=== PATIENT | female | born 1970 | race Caucasian/White ===

== ENCOUNTER → 2019-12-06 13:46 | Outpatient (BNVA) | payer OTHER, SELFPAY | PROVIDERS: PCP Internal Medicine; Visit Provider Physician Assistant | DX: M17.0 Bilateral primary osteoarthritis of knee (principal) | CPT/HCPCS: 20600; 20610; 99213 ==

== ENCOUNTER → 2020-01-09 10:29 | Outpatient (BNVA) | payer OTHER, SELFPAY | PROVIDERS: PCP Internal Medicine; Referring Provider Internal Medicine; Visit Provider Internal Medicine Endocrinology, Diabetes & Metabolism | DX: E89.0 Postprocedural hypothyroidism (principal); Z79.899 Other long term (current) drug therapy | CPT/HCPCS: 99212 ==

== ENCOUNTER 2020-01-17 08:24 | Outpatient (REF) | payer OTHER, SELFPAY ==
[2020-01-17 12:06] LABS: Free T4 (Free Thyroxine) 0.96 ng/dL (0.71-1.85)
== END 2020-01-17 08:25 | disposition home or self-care (01) ==
LOC: HO.HMGCLDS 08:24
PROVIDERS: PCP Internal Medicine; Visit Provider Internal Medicine Endocrinology, Diabetes & Metabolism
DX: E89.0 Postprocedural hypothyroidism (principal)
CPT/HCPCS: 84439; 84443

== ENCOUNTER 2020-03-16 09:48 | Outpatient (REF) | payer OTHER, SELFPAY ==
[2020-03-16 12:27] LABS: Free T4 (Free Thyroxine) 1.15 ng/dL (0.71-1.85); Thyroid Stimulating Hormone 3.08 uIU/mL (0.32-4.0)
== END 2020-03-16 09:49 | disposition home or self-care (01) ==
LOC: HO.HMGCLDS 09:48
PROVIDERS: PCP Internal Medicine; Visit Provider Internal Medicine Endocrinology, Diabetes & Metabolism
DX: E89.0 Postprocedural hypothyroidism (principal)
CPT/HCPCS: 36415; 84439; 84443

== ENCOUNTER 2020-04-13 09:28 | Outpatient (REF) | payer OTHER, SELFPAY ==
[2020-04-13 12:22] LABS: Alanine Aminotransferase 14 U/L (0-31); Albumin Level 4.1 g/dL (3.5-5.0); Alkaline Phosphatase 68 U/L (39-117); Anion Gap 12 (12-20); Aspartate Amino Transferase 17 U/L (5-31); Bilirubin Total 0.4 mg/dL (0.0-1.0); Blood Urea Nitrogen 18 mg/dL (9-16); Calcium 8.9 mg/dL (8.4-10.2); Carbon Dioxide 30 mmol/L (22-29); Chloride 103 mmol/L (96-108); Cholesterol 171 mg/dL; Estimated Glomerular Filt Rate > 60; Glucose Fasting 95 mg/dL (60-99); HDL Cholesterol 38 mg/dL; LDL Cholesterol Calculated 114 mg/dl; Potassium 4.7 mmol/L (3.3-5.1); Sodium 140 mmol/L (135-145); Total Protein 6.6 g/dL (6.5-8.0); Triglycerides 98 mg/dL
[2020-04-13 12:32] LABS: Free T4 (Free Thyroxine) 1.28 ng/dL (0.71-1.85); Thyroid Stimulating Hormone 5.21 uIU/mL (0.32-4.0)
== END 2020-04-13 09:29 | disposition home or self-care (01) ==
LOC: HO.HMGCLDS 09:28
PROVIDERS: Absent Provider Internal Medicine Endocrinology, Diabetes & Metabolism; PCP Internal Medicine; Visit Provider Internal Medicine
DX: E89.0 Postprocedural hypothyroidism (principal); I10 Essential (primary) hypertension; E66.01 Morbid (severe) obesity due to excess calories; Z68.43 Body mass index [BMI] 50.0-59.9, adult
CPT/HCPCS: 36415; 80053; 80061; 84439; 84443

== ENCOUNTER 2020-07-10 10:56 | Outpatient (REF) | payer OTHER, SELFPAY ==
[2020-07-10 17:51] LABS: Thyroid Stimulating Hormone 0.48 uIU/mL (0.32-4.0)
== END 2020-07-10 10:57 | disposition home or self-care (01) ==
LOC: HO.HMGCLDS 10:56
PROVIDERS: PCP Internal Medicine; Visit Provider Internal Medicine Endocrinology, Diabetes & Metabolism
DX: E89.0 Postprocedural hypothyroidism (principal); I10 Essential (primary) hypertension; F41.9 Anxiety disorder, unspecified; Z79.899 Other long term (current) drug therapy
CPT/HCPCS: 36415; 84439; 84443

== ENCOUNTER 2020-09-10 11:59 | Outpatient (REF) | payer OTHER, SELFPAY ==
[2020-09-10 13:54] LABS: MANUAL DIFF FLAG NO
[2020-09-10 14:00] LABS: Basophils Percent Auto 0.6 % (0-2); Eosinophils Absolute Auto 0.1 X10*3/uL (0.0-0.4); Eosinophils Percent Auto 1.9 % (0-4); Hematocrit 48.3 % (37-47); Hemoglobin 15.8 g/dl (12.0-16.0); Imm Gran Abs Auto 0.04 X10*3/uL (0.00-0.03); Imm Gran Pct Auto 0.6 % (0.0-0.4); Lymphocytes Percent Auto 30.9 % (20-40); Mean Corpuscular HGB Conc 32.7 g/dl (31.0-35.0); Mean Corpuscular Volume 88.8 fL (80-98); Monocytes Absolute Auto 0.6 X10*3/uL (0.1-1.2); Monocytes Percent Auto 8.7 % (2-11); Neutrophils Absolute Auto 3.7 X10*3/uL (2.0-8.3); Neutrophils Percent Auto 57.3 % (45-73); Platelet Count 299 X10*3/uL (160-400); Red Blood Count 5.44 X10*6/uL (4.20-5.50); Red Cell Distribution Width 13.5 % (11.0-16.0); White Blood Count 6.4 X10*3/uL (4.8-10.8)
[2020-09-10 14:14] LABS: INTERNATIONAL NORM RATIO 1.1 (0.9-1.1); Prothrombin Time 12.2 SEC (9.9-13.0)
[2020-09-10 14:19] LABS: Alanine Aminotransferase 22 U/L (0-31); Albumin Level 4.2 g/dL (3.5-5.0); Alkaline Phosphatase 67 U/L (39-117); Anion Gap 16 (12-20); Aspartate Amino Transferase 24 U/L (5-31); Bilirubin Total 0.7 mg/dL (0.0-1.0); Blood Urea Nitrogen 13 mg/dL (9-16); Calcium 9.6 mg/dL (8.4-10.2); Carbon Dioxide 29 mmol/L (22-29); Chloride 101 mmol/L (96-108); Estimated Glomerular Filt Rate > 60; Glucose Random 85 mg/dL (60-115); Potassium 4.6 mmol/L (3.3-5.1); Sodium 141 mmol/L (135-145); Total Protein 7.1 g/dL (6.5-8.0)
[2020-09-10 14:38] LABS: Erythrocyte Sedimentation Rate 3 MM/HR (0-20)
[2020-09-10 14:41] LABS: Free T4 (Free Thyroxine) 1.41 ng/dL (0.71-1.85); Thyroid Stimulating Hormone 1.48 uIU/mL (0.32-4.0)
== END 2020-09-10 12:00 | disposition home or self-care (01) ==
LOC: HO.HMGCLDS 11:59
PROVIDERS: Absent Provider Nurse Practitioner Family; PCP Internal Medicine; Visit Provider Internal Medicine Endocrinology, Diabetes & Metabolism
DX: S80.10XA Contusion of unspecified lower leg, initial encounter (principal); E89.0 Postprocedural hypothyroidism
CPT/HCPCS: 36415; 80053; 84439; 84443; 85025; 85610; 85652

== ENCOUNTER → 2020-09-11 09:08 | Outpatient (BNVA) | payer OTHER, SELFPAY | PROVIDERS: Visit Provider Obstetrics & Gynecology ==

== ENCOUNTER 2020-09-17 10:06 | Outpatient (REF) | payer OTHER, SELFPAY ==
--- NOTE | ~2020-09-17 | MM_ITS ---
EXAMINATION: MM SCREENING DIGITAL BREAST TOMOSYNTHESIS, BILATERAL CLINICAL INFORMATION: Screening. Asymptomatic. The lifetime risk of breast cancer based on the Tyrer-Cuzick Model is 8%. COMPARISON: Mammography: 09/12/2019, 06/15/2018, 04/26/2017 TECHNIQUE: Digital breast tomosynthesis is performed in both the craniocaudal and mediolateral oblique views along with computer-aided detection (CAD). Synthesized 2D images are generated from the tomosynthesis. Additional bilateral CC and bilateral MLO views are provided. FINDINGS: There are scattered areas of fibroglandular density (ACR BI-RADS breast composition Category b). There are no significant masses, abnormal calcifications, or other abnormalities. Parenchymal pattern is similar to prior studies. No developing density. The skin contours are smooth. MM/MM tomosynthesis screening BI IMPRESSION: No mammographic evidence of malignancy. ASSESSMENT: BI-RADS 1: Negative RECOMMENDATION: Routine annual mammography screening. This patient's information was entered into a reminder system with a target due date for their next mammogram.
== END 2020-09-17 10:07 | disposition home or self-care (01) ==
LOC: HO.MAMMO 10:06
PROVIDERS: PCP Internal Medicine; Visit Provider Internal Medicine
DX: Z12.31 Encounter for screening mammogram for malignant neoplasm of breast (principal)
CPT/HCPCS: 77063; 77067

== ENCOUNTER → 2020-09-25 10:53 | Outpatient (BNVA) | payer OTHER, SELFPAY | PROVIDERS: PCP Internal Medicine; Referring Provider Internal Medicine; Visit Provider Nurse Practitioner ==

== ENCOUNTER 2020-09-29 14:14 | Outpatient (REF) | payer OTHER, SELFPAY ==
--- NOTE | ~2020-09-29 | US_ITS ---
EXAMINATION: US PELVIS TRANSVAGINAL CLINICAL INFORMATION: Postmenopausal bleeding COMPARISON: None. TECHNIQUE: Transcutaneous and transvaginal pelvic ultrasound. Transvaginal scanning was performed after voiding to better evaluate the endometrium and adnexa. FINDINGS: The uterus measures 11.7 x 7.2 x 7.9 cm. The uterus is anteverted. No suspicious abnormalities region of the cervix. Nabothian cysts are present. The uterine contour is smooth. The endometrium measures 0.7 cm. No focal abnormalities within the myometrium. Right and left ovaries are not identified. No abnormal pelvic masses seen. No significant free pelvic fluid. US/US pelvic and transvaginal IMPRESSION: No suspicious uterine abnormality appreciated. The ovaries were not identified with limitations from body habitus. No suspicious pelvic mass.
== END 2020-09-29 14:15 | disposition home or self-care (01) ==
LOC: HO.US 14:14
PROVIDERS: Visit Provider Obstetrics & Gynecology
DX: N95.0 Postmenopausal bleeding (principal)
CPT/HCPCS: 76830; 76856

== ENCOUNTER → 2020-10-06 11:21 | Outpatient (BNVA) | payer OTHER, SELFPAY | PROVIDERS: PCP Internal Medicine; Visit Provider Obstetrics & Gynecology ==

== ENCOUNTER 2020-10-22 08:34 | Outpatient (REF) | payer OTHER, SELFPAY | END 2020-10-22 08:35 | disposition home or self-care (01) | LOC: HO.LAB 08:34 | PROVIDERS: PCP Internal Medicine; Visit Provider Obstetrics & Gynecology | DX: N95.0 Postmenopausal bleeding (principal) | CPT/HCPCS: 58100; 88305 ==

== ENCOUNTER → 2020-11-05 11:34 | Outpatient (BNVA) | payer OTHER, SELFPAY | PROVIDERS: PCP Internal Medicine; Visit Provider Obstetrics & Gynecology ==

== ENCOUNTER 2020-11-19 11:43 | Day surgery (SDC) | payer OTHER, SELFPAY ==
--- NOTE | 2020-11-18 13:55 | HO.ANESPROP2 ---
Documented by User: Britany Stewart NP 11/18/20 13:57 HPI - Anesthesia Eval Consult details Narrative: 50yo F for Colonoscopy PMFSH Active Problems Active Problems: All Active Problems (Updated 09/11/20 @ 10:25 by Edgar Encarnacion MD) Postmenopausal bleeding (Acute) Well woman exam (Acute) Superficial bruising of lower leg (Acute) Cellulitis (Acute) Allergic rhinitis (Acute) Lumbar degenerative disc disease (Acute) Vitamin D deficiency (Acute) GERD without esophagitis (Acute) Cervical cancer screening (Acute) Colon cancer screening (Acute) Annual physical exam (Acute) Morbid obesity with BMI of 50.0-59.9, adult (Acute) Benign essential hypertension (Acute) Post-surgical hypothyroidism (Acute) Bilateral primary osteoarthritis of knee (Acute) Past Medical History Medical History Allergic rhinitis Benign essential hypertension Cervical cancer screening Colon cancer screening GERD without esophagitis Lumbar degenerative disc disease Morbid obesity with BMI of 50.0-59.9, adult Post-surgical hypothyroidism Superficial bruising of lower leg Vitamin D deficiency Family History Family History Father No problems noted. Mother DMII (diabetes mellitus, type 2) Brother No problems noted. Sister No problems noted. Son No problems noted. Son No problems noted. Daughter No problems noted. Daughter No problems noted. Surgical History Surgical History History of lobectomy of thyroid Social History Social History Housing: Apartment Alcohol intake: current Alcohol intake frequency: a few times a week Alcohol type: wine Patient Tobacco Use Status: Never used Tobacco Use of substances other than those prescribed or required for medical reasons: No Have you been hit, kicked, punched, or otherwise hurt by someone within the past year? If so, by whom?: No Advance Directives: No Advance Directives Information Provided: Yes Recently lost weight without trying: No Patient : No service: No Current occupational status: employed Meds Allergies Allergy/AdvReac Type Severity Reaction Status Date / Time No Known Allergies Allergy Verified 09/25/20 11:05 Home Medications Medication Instructions Recorded Confirmed Last Taken Type cholecalciferol (vitamin D3) 25 25 mcg PO DAILY 12/02/19 09/09/20 11/19/20 History mcg (1,000 unit) chewable tablet (Kids First Vitamin D3) cranberry fruit concentrate 250 mg 250 mg PO TID 12/02/19 09/09/20 Unknown History chewable tablet (Azo Cranberry) ibuprofen 600 mg tablet 600 mg PO Q8H PRN 12/02/19 09/09/20 11/05/20 History magnesium 200 mg tablet 200 mg PO DAILY 12/02/19 09/09/20 Unknown History multivitamin,my-llyc-hfnvexuv 1 tab PO DAILY 12/02/19 09/09/20 Unknown History (Complete Multivitamin) ferrous sulfate 325 mg (65 mg 325 mg PO DAILY 01/09/20 09/09/20 11/05/20 History iron) tablet Exam Exam Date and Time: November 18, 2020 1355 Pertinent Lab Results Pertinent Lab Results: Laboratory Tests 09/10/20 09/10/20 12:09 12:09 WBC 6.4 Hgb 15.8 Hct 48.3 H Plt Count 299 Sodium 141 Potassium 4.6 Chloride 101 Carbon Dioxide 29 BUN 13 Creatinine 0.77 Laboratory Tests 09/10/20 12:09 TSH 1.48 Free T4 1.41 Assessment and Plan Assessment Anesthesia Assessment: Chart Reviewed Documented by User: Roxy Gabriel MD 11/19/20 12:15 [facility] Past Medical History Medical History Allergic rhinitis Benign essential hypertension Cervical cancer screening Colon cancer screening GERD without esophagitis Lumbar degenerative disc disease Morbid obesity with BMI of 50.0-59.9, adult Post-surgical hypothyroidism Superficial bruising of lower leg Vitamin D deficiency Functional capacity: independent ambulation Patient : No Family History Family History Father No problems noted. Mother DMII (diabetes mellitus, type 2) Brother No problems noted. Sister No problems noted. Son No problems noted. Son No problems noted. Daughter No problems noted. Daughter No problems noted. Family history of problems with anesthesia: No Surgical History Surgical History History of lobectomy of thyroid History of Problems with Anesthesia: No Social History Social History Housing: Apartment Alcohol intake: current Alcohol intake frequency: a few times a week Alcohol type: wine Patient Tobacco Use Status: Never used Tobacco Use of substances other than those prescribed or required for medical reasons: No Have you been hit, kicked, punched, or otherwise hurt by someone within the past year? If so, by whom?: No Advance Directives: No Advance Directives Information Provided: Yes Recently lost weight without trying: No Patient : No service: No Current occupational status: employed Meds Allergies Allergy/AdvReac Type Severity Reaction Status Date / Time No Known Allergies Allergy Verified 09/25/20 11:05 Home Medications Medication Instructions Recorded Confirmed Last Taken Type cholecalciferol (vitamin D3) 25 25 mcg PO DAILY 12/02/19 09/09/20 11/19/20 History mcg (1,000 unit) chewable tablet ([employer] Vitamin D3) cranberry fruit concentrate 250 mg 250 mg PO TID 12/02/19 09/09/20 Unknown History chewable tablet (Azo Cranberry) ibuprofen 600 mg tablet 600 mg PO Q8H PRN 12/02/19 09/09/20 11/05/20 History magnesium 200 mg tablet 200 mg PO DAILY 12/02/19 09/09/20 Unknown History multivitamin,pm-pccy-hsapzigt 1 tab PO DAILY 12/02/19 09/09/20 Unknown History (Complete Multivitamin) ferrous sulfate 325 mg (65 mg 325 mg PO DAILY 01/09/20 09/09/20 11/05/20 History iron) tablet Exam Airway Mallampati Class: III TM Dist: >3cm Neck ROM: Full Heart: RRR Lungs: CTA Assessment and Plan Final Anesthetic Review Family History of Problems with Anesthesia: No History of Problems with Anesthesia: No
[2020-11-19 11:54] VITALS: BP 122/81; PULSE 100; RESP 18; TEMP 37.1; O2SAT 99; BMI 49.8
--- NOTE | 2020-11-19 11:59 | P.HPSUR_ITS ---
Pre-Procedural Eval Section A Date of Service: 11/19/20 Section B Chief Complaint: Screening Relevant Family History (Specify if Yes): No Relevant Social History: None Present Medications: see Short Stay Collaborative assessment Medical History: Significant History (Allergic rhinitis Benign essential hypertension Cervical cancer screening Colon cancer screening GERD without esophagitis Lumbar degenerative disc disease Morbid obesity with BMI of 50.0- 59.9, adult Post-surgical hypothyroidism Superficial bruising of lower leg Vitamin D deficiency) History of Previous Operations: Relevant previous surgery/procedure and date(s) (thyroid lobectomy) Allergies: Allergies Allergy/AdvReac Type Severity Reaction Status Date / Time No Known Allergies Allergy Verified 09/25/20 11:05 Review of Systems Sugical H&P ROS: Negative: Constitution, Cardiovascular, Respiratory, Neurological, Psychiatric, Hem-Onc, Allergic/Immunologic, Gastrointestinal, Genitourinary, Musculoskeletal, Integumentary, Endocrine and Eyes/Ears/Nose/Throat Exam Surgical H&P Exam: Normal: HEENT, Normal: Heart, Normal: Lungs, Normal: Extremities, Normal: Abdomen, Normal: Skin and Normal: Neurological Plan Diagnosis/Plan: Unchanged I have reviewed the history and physical and performed a pertinent physical examination on my patient. No changes have occurred unless specified.
[2020-11-19] MEDS: Lactated Ringers 1,000 ML 100 ML IVCONT (12:20)
--- NOTE | 2020-11-19 12:55 | P.CONAN_ITS ---
[facility] Active Problems Active Problems: All Active Problems (Updated 09/11/20 @ 10:25 by Edgar Encarnacion MD) Postmenopausal bleeding (Acute) Well woman exam (Acute) Superficial bruising of lower leg (Acute) Cellulitis (Acute) Allergic rhinitis (Acute) Lumbar degenerative disc disease (Acute) Vitamin D deficiency (Acute) GERD without esophagitis (Acute) Cervical cancer screening (Acute) Colon cancer screening (Acute) Annual physical exam (Acute) Morbid obesity with BMI of 50.0-59.9, adult (Acute) Benign essential hypertension (Acute) Post-surgical hypothyroidism (Acute) Bilateral primary osteoarthritis of knee (Acute) Past Medical History Medical History Allergic rhinitis Benign essential hypertension Cervical cancer screening Colon cancer screening GERD without esophagitis Lumbar degenerative disc disease Morbid obesity with BMI of 50.0-59.9, adult Post-surgical hypothyroidism Superficial bruising of lower leg Vitamin D deficiency Functional capacity: independent ambulation Family History Family History Father No problems noted. Mother DMII (diabetes mellitus, type 2) Brother No problems noted. Sister No problems noted. Son No problems noted. Son No problems noted. Daughter No problems noted. Daughter No problems noted. Family history of problems with anesthesia: No Surgical History Surgical History History of lobectomy of thyroid History of Problems with Anesthesia: No Social History Social History Housing: Apartment Alcohol intake: current Alcohol intake frequency: a few times a week Alcohol type: wine Patient Tobacco Use Status: Never used Tobacco Use of substances other than those prescribed or required for medical reasons: No Have you been hit, kicked, punched, or otherwise hurt by someone within the past year? If so, by whom?: No Advance Directives: No Advance Directives Information Provided: Yes Recently lost weight without trying: No Patient : No service: No Current occupational status: employed Meds Allergies Allergy/AdvReac Type Severity Reaction Status Date / Time No Known Allergies Allergy Verified 09/25/20 11:05 Active Medications: Current Medications Generic Name Dose Route Start Last Admin Trade Name Freq PRN Reason Stop Dose Admin Lactated Ringer's 1,000 mls @ 100 mls/hr 11/19/20 10:45 11/19/20 12:20 Lr IVCONT 100 mls/hr .Q10H NELSON Administration Home Medications Medication Instructions Recorded Confirmed Last Taken Type cholecalciferol (vitamin D3) 25 25 mcg PO DAILY 12/02/19 09/09/20 11/19/20 History mcg (1,000 unit) chewable tablet ([employer] First Vitamin D3) cranberry fruit concentrate 250 mg 250 mg PO TID 12/02/19 09/09/20 Unknown History chewable tablet (Azo Cranberry) ibuprofen 600 mg tablet 600 mg PO Q8H PRN 12/02/19 09/09/20 11/05/20 History magnesium 200 mg tablet 200 mg PO DAILY 12/02/19 09/09/20 Unknown History multivitamin,xp-qfdy-ydrbhpob 1 tab PO DAILY 12/02/19 09/09/20 Unknown History (Complete Multivitamin) ferrous sulfate 325 mg (65 mg 325 mg PO DAILY 01/09/20 09/09/20 11/05/20 History iron) tablet Exam Exam Date and Time: November 19, 2020 1255 Height,Weight and Vital Signs: Height 5 ft 8 in Weight 148.778 kg Last Vital Signs Temp 98.7 F 11/19/20 11:54 Pulse 100 11/19/20 11:54 Resp 18 11/19/20 11:54 BP 122/81 11/19/20 11:54 Pulse Ox 99 11/19/20 11:54 Airway Mallampati Class: IV TM Dist: >3cm Neck ROM: Full Heart: RRR Lungs: CTA Assessment and Plan Final Anesthetic Review Family History of Problems with Anesthesia: No History of Problems with Anesthesia: No
--- NOTE | 2020-11-19 13:30 | P.BOP_ITS ---
Brief Operative Note Date of Service: 11/19/20 Pre-op diagnosis: colon screening Post-op diagnosis: same Procedure: see op note Surgeon: Keshia Fitzpatrick MD Anesthesia: MAC Was an [place] used for this Procedure?: No Estimated blood loss (mL): 0 Condition: stable Disposition: PACU
--- NOTE | 2020-11-19 13:31 | P.OP_ITS ---
Operative Note Operative Note Date of Service: 11/19/20 Narrative: Operative Information Procedure Description: Colonoscopy COLONOSCOPY Instrument: Olympus variable stiffness adult scope 190L Colonoscopy Monitoring: Vital signs and clinical assessment, continuous EKG monitoring, Pulse oximetry, Carbon Dioxide monitoring and blood pressure monitoring were done throughout the procedure. Colon withdrawal time was 11 minutes. Procedure: The patient was placed in the left lateral decubitis position and pre-procedure medications were administered. After a digital rectal examination of the ano-rectum, the video colonoscope was inserted into the rectum and advanced through the colon to the cecum/TI. The colonoscope was slowly withdrawn in a retrograde panoramic fashion and the colon mucosa was carefully examined including a retroflexed view of the rectum. Findings and interventions are described below. Procedure Difficulty: easy Findings: Terminal Ileum-normal Cecum:normal Ascending Colon: normal Transverse Colon -normal Descending Colon:normal Sigmoid Colon: normal Rectum: Retroflexion with small internal hemorrhoids, grade I Anorectum - normal Colon preparation: [place] Bowel Preparation Scale Right colon; 1 Transverse colon: 1 Left colon; 2 (0 = Unprepared colon segment with mucosa not seen due to solid stool that cannot be cleared. 1 = Portion of mucosa of the colon segment seen, but other areas of the colon segment not well seen due to staining, residual stool and/or opaque liquid. 2 = Minor amount of residual staining, small fragments of stool and/or opaque liquid, but mucosa of colon segment seen well. 3 = Entire mucosa of colon segment seen well with no residual staining, small fragments of stool or opaque liquid) Impression and Post Procedure Diagnosis: internal hemorrhoids Plan: High fiber diet leaflet Avoid straining at stool, epsom salts and sitz bath, anusol supps or cream Repeat Colonoscopy in 1 year or earlier if clinccally indicated, review prep instructions carefully for next time Above findings were reviewed with the patient and relevant handouts were provided if indicated.
[2020-11-19 13:37] VITALS: BP 130/81; PULSE 100; RESP 20; TEMP 37.1; O2SAT 98
[2020-11-19 13:52] VITALS: BP 150/85; PULSE 98; RESP 16; TEMP 37.1; O2SAT 97
== END 2020-11-19 14:08 | disposition home or self-care (01) ==
PROVIDERS: PCP Internal Medicine; Visit Provider Internal Medicine Gastroenterology
PROC: 0DJD8ZZ Inspection of Lower Intestinal Tract, Via Natural or Artificial Opening Endoscopic (ICD-10-PCS; CPT 45378; principal; 2020-11-19 13:00)
DX: Z12.11 Encounter for screening for malignant neoplasm of colon (principal); K64.0 First degree hemorrhoids; K21.9 Gastro-esophageal reflux disease without esophagitis; I10 Essential (primary) hypertension; J30.9 Allergic rhinitis, unspecified; E55.9 Vitamin D deficiency, unspecified; E66.01 Morbid (severe) obesity due to excess calories; Z68.43 Body mass index [BMI] 50.0-59.9, adult; E89.0 Postprocedural hypothyroidism; Z79.1 Long term (current) use of non-steroidal anti-inflammatories (NSAID); Z79.899 Other long term (current) drug therapy
CPT/HCPCS: 45378

== ENCOUNTER → 2020-12-03 09:58 | Outpatient (BNVA) | payer OTHER, SELFPAY | PROVIDERS: Referring Provider Internal Medicine; Visit Provider Nurse Practitioner | DX: Z12.11 Encounter for screening for malignant neoplasm of colon (principal) | CPT/HCPCS: 99212 ==

== ENCOUNTER 2020-12-16 07:30 | Emergency (ER) | payer OTHER, SELFPAY ==
[2020-12-16 07:54] VITALS: BP 171/87; PULSE 77; RESP 17; TEMP 36.6; O2SAT 99; BMI 52.9
--- NOTE | 2020-12-16 09:01 | ED_ITS ---
HPI - Back Pain/Injury General Chief Complaint: Back Pain/Injury Stated Complaint: back/leg pain Time Seen by Provider: 12/16/20 08:39 Source: patient Mode of arrival: ambulatory Limitations: no limitations History of Present Illness HPI Narrative: 50-year-old female with a past medical history of lumbar degenerative disc disease here with complaints of low back pain with radiation to the bilateral anterior thighs for 3 days. No injury or trauma. No numbness or tingling. No numbness in the groin. No bowel or bladder incontinence. Patient tells me that she has history of degenerative disc disease and occas ionally has pain necessitating a visit to the emergency department for an injection to help with the pain. She is followed by pain management outpatient. Related Data Home Medications Medication Instructions Recorded Confirmed cholecalciferol (vitamin D3) 25 25 mcg PO DAILY 12/02/19 09/09/20 mcg (1,000 unit) chewable tablet (Kids First Vitamin D3) cranberry fruit concentrate 250 mg 250 mg PO TID 12/02/19 09/09/20 chewable tablet (Azo Cranberry) ibuprofen 600 mg tablet 600 mg PO Q8H PRN 12/02/19 09/09/20 magnesium 200 mg tablet 200 mg PO DAILY 12/02/19 09/09/20 multivitamin,[id number] 1 tab PO DAILY 12/02/19 09/09/20 (Complete Multivitamin) ferrous sulfate 325 mg (65 mg 325 mg PO DAILY 01/09/20 09/09/20 iron) tablet Previous Rx's Medication Instructions Recorded lisinopril 10 mg tablet 10 mg PO DAILY 90 Days #90 tab 12/09/19 omeprazole 20 mg capsule,delayed 20 mg PO DAILY PRN 90 Days #90 cap 07/31/20 release bisacodyl 5 mg tablet,delayed 10 mg PO BEDTIME 2 Days #4 tab 09/25/20 release (Dulcolax (bisacodyl)) peg 3350-electrolytes 236 240 ml PO Q10M 1 Days #4000 ml 09/25/20 gram-22.74 gram-6.74 gram-5.86 gram solution (Golytely) Levoxyl 200 mcg tablet 200 mcg PO DAILY 30 Days #30 tab NS 10/01/20 (levothyroxine) loratadine 10 mg tablet 10 mg PO DAILY #30 tab 10/01/20 cyclobenzaprine 10 mg tablet 10 mg PO BEDTIME PRN 30 Days #30 11/26/20 tab diazepam 10 mg tablet (Valium) See Rx Instructions PO BID PRN 30 11/26/20 Days #30 tab oxycodone-acetaminophen 5 mg-325 1 tab PO Q6H PRN 30 Days #120 tab 11/26/20 mg tablet (Percocet) Allergies Allergy/AdvReac Type Severity Reaction Status Date / Time No Known Allergies Allergy Verified 12/03/20 10:08 Review of Systems Review of Systems: Yes all other systems are reviewed and are negative Constitutional: Constitutional: Reports no additional constitutional complaints, Denies body ache(s), Denies chills, Denies fever(s), Denies headache(s) and Denies weakness Eyes: Eyes: Reports no additional eye complaints and Denies change in vision ENT: Reports system reviewed and no additional complaints, except as documented, Denies dizziness, Denies headache(s), Denies nasal congestion, Denies nasal discharge and Denies neck pain Cardiovascular: Cardiovascular: Reports no additional cardiovascular complaints, Denies chest pain, Denies leg edema and Denies dyspnea Respiratory: Respiratory: Reports no additional respiratory complaints, Denies cough and Denies dyspnea Gastrointestinal: Gastrointestinal: Reports no additional gastrointestinal complaints, Denies abdominal pain, Denies diarrhea, Denies nausea and Denies vomiting Genitourinary: Genitourinary: Reports no additional female genitourinary complaints and Denies urinary incontinence Musculoskeletal: Musculoskeletal: Reports no additional musculoskeletal complaints, Reports back pain, Denies arthralgias, Denies joint swelling, Denies neck pain, Denies numbness and Denies tingling Integumentary/Breasts: Skin/Breast: Reports system reviewed and no additional complaints, except as docu and Denies rash Neurologic: Reports system reviewed and no additional complaints, except as documented, Denies Abnormal speech present, Denies dizziness, Denies headache(s), Denies numbness, Denies tingling and Denies weakness PMFSH Past Medical History Attestation statement: The following information was validated with the patient. Source: old records reviewed and nursing notes reviewed Medical History Allergic rhinitis Benign essential hypertension Cervical cancer screening Colon cancer screening GERD without esophagitis Lumbar degenerative disc disease Morbid obesity with BMI of 50.0-59.9, adult Post-surgical hypothyroidism Superficial bruising of lower leg Vitamin D deficiency Surgical History History of lobectomy of thyroid Family History Family History Father No problems noted. Mother DMII (diabetes mellitus, type 2) Brother No problems noted. Sister No problems noted. Son No problems noted. Son No problems noted. Daughter No problems noted. Daughter No problems noted. Social History Social History Housing: Apartment Alcohol intake: current Alcohol intake frequency: a few times a week Alcohol type: wine Patient Tobacco Use Status: Never used Tobacco Advance Directives: No Advance Directives Information Provided: No Patient : No service: No Current occupational status: employed Physical Exam Vital Signs: Vital Signs: Last Vital Signs Temp 98 F 12/16/20 07:54 Pulse 77 12/16/20 07:54 Resp 17 12/16/20 07:54 BP 171/87 H 12/16/20 07:54 Pulse Ox 99 12/16/20 07:54 Body Mass Index 52.9 Const: General: cooperative, healthy appearing, comfortable and no acute distress Orientation/consciousness: patient oriented x3 Limitations: no limitations HENMT: Head: Yes normal to inspection Ears: hearing grossly normal bilaterally General nose exam: Normal external nose present Face and sinus: Yes normal facial exam Mouth: Normal oral and palatal mucosa present Throat: Yes posterior oropharynx normal Eyes: General: appearance normal, both eyes and all related structures Pupils: Equal, round and reactive pupils present Neck: Neck: Yes normal visual inspection Chest: Chest palpation & inspection: normal inspection of the chest Resp: Effort & Inspection: normal respiratory effort Auscultation: clear to auscultation bilaterally Cardio: Rate: regular rate Rhythm: regular rhythm Peripheral pulses: Peripheral pulses 2+ throughout GI: Inspection: Yes normal to inspection Palpation (GI): Soft to palpation and nontender Auscultation: normal bowel sounds : General: Yes no CVA tenderness Back/Spine/Pelvis: Other: No midline tenderness, step-offs deformities Pain over the anterior bilateral thighs Back: no CVA tenderness Thoracic/Lumbar Spine: thoracic and lumbar spine normal to inspection Skin: General skin exam: no rashes or lesions noted Neuro: General: patient oriented x3, no focal motor deficits and normal sensation to monofilament Cranial nerves: Yes CN's II-XII intact bilaterally, Yes Equal, round and reactive pupils present, Yes Bilaterally intact EOM present, Yes Nystagmus not present and Yes Midline tongue present Cognition (Neuro): normal cognition Speech: No Abnormal speech present Gait exam (Neuro): Normal gait present Motor exam (neuro): 5/5 motor strength present throughout Sensory Exam: Normal double simultaneous stimulation for sensation Deep tendon reflexes (DTR's): Right patellar reflex intensity grade: 2+ and Left patellar reflex intensity grade: 2+ Coordination: [id number] test normal, [id number]-qt-[id number] test normal and tandem gait normal Extrem: General: Yes normal to inspection, Yes no pedal edema and Yes no calf tenderness Course Course Course Narrative: 50-year-old female here with chronic low back pain who reports acute on chronic low back pain for 3 days. Patient tells me that she is followed outpatient by pain management. She tells me she came here today because normally they give her an injection help with the pain and then she is able to go home and follow-up with her outpatient providers. No neuro deficits or red flag symptoms. Will give IM Toradol. Reviewed worrisome signs and symptoms of when to return to the emergency department. Comfortable discharge home. MDM - Back Pain/Injury Medical Records Attestation: I reviewed the patient's medical records. Lab Data Attestation: I reviewed the patient's lab results. Discharge Plan Discharge Clinical Impression: Lumbar degenerative disc disease Patient Disposition: Home, Self-Care Instructions: Low Back Strain (ED), Lower Back Exercises (ED) Additional Instructions: Follow-up with her primary care doctor Heat or ice Gentle stretching Prescriptions: No Action lisinopril 10 mg tablet 10 mg PO DAILY 90 Days Qty: 90 RF: 3 levothyroxine [Levoxyl] 200 mcg tablet 200 mcg PO DAILY 30 Days Qty: 30 RF: 11 loratadine 10 mg tablet 10 mg PO DAILY Qty: 30 RF: 4 cyclobenzaprine 10 mg tablet 10 mg PO BEDTIME PRN (Reason: muscle spasm) 30 Days Qty: 30 RF: 0 diazepam [Valium] 10 mg tablet See Rx Instructions PO BID PRN (Reason: anxiety) 30 Days Qty: 30 RF: 2 oxycodone-acetaminophen [Percocet] 5-325 mg tablet 1 tab PO Q6H PRN (Reason: pain) 30 Days Qty: 120 RF: 0 omeprazole 20 mg capsule,delayed release(DR/EC) 20 mg PO DAILY PRN (Reason: heartburn) 90 Days Qty: 90 RF: 3 Complete Multivitamin Tablet 1 tab PO DAILY RF: 0 magnesium 200 mg tablet 200 mg PO DAILY RF: 0 cholecalciferol (vitamin D3) [Kids First Vitamin D3] 25 mcg (1,000 unit) tablet,chewable 25 mcg PO DAILY RF: 0 ibuprofen 600 mg tablet 600 mg PO Q8H PRN (Reason: pain) RF: 0 Azo Cranberry 250 mg tablet,chewable 250 mg PO TID RF: 0 ferrous sulfate 325 mg (65 mg iron) tablet 325 mg PO DAILY RF: 0 bisacodyl [Dulcolax (bisacodyl)] 5 mg tablet,delayed release (DR/EC) 10 mg PO BEDTIME 2 Days Qty: 4 RF: 0 peg 3350-electrolytes [Golytely] 236-22.74-6.74 -5.86 gram recon soln 240 ml PO Q10M 1 Days Qty: 4000 RF: 0 Referrals: Sascha Arboleda MD [Primary Care Provider] - 2 days
[2020-12-16] MEDS: Ketorolac Tromethamine 60 MG/2 ML VIAL IM (09:06)
--- NOTE | 2020-12-16 09:13 | PC.NURSE ---
PT EVALUATED BY FERNY ANDERSON. PT AWAKE, ALERT AND ORIENTED X 3. SKIN WARM AND DRY. RESP UNLABORED. DENIES N/V. C/O BACK PAIN RADIATING INTO LEGS. +CMS. AMBULATORY IN ROOM, GAIT STEADY PLAN IS FOR MEDICATION AND DISCHARGE. PT AGREEABLE TO PLAN
== END 2020-12-16 09:16 | disposition home or self-care (01) ==
PROVIDERS: Emergency Provider Emergency Medicine; PCP Internal Medicine
DX: M51.36 Other intervertebral disc degeneration, lumbar region (principal); I10 Essential (primary) hypertension
CPT/HCPCS: 96372; 99283; 99284; J1885

== ENCOUNTER 2020-12-28 09:27 | Outpatient (REF) | payer OTHER, SELFPAY | END 2020-12-28 09:28 | disposition home or self-care (01) | LOC: HO.LAB 09:27 | PROVIDERS: PCP Internal Medicine; Visit Provider Internal Medicine | DX: Z20.822 Contact with and (suspected) exposure to COVID-19 (principal) | CPT/HCPCS: C9803; U0003; U0005 ==

== ENCOUNTER 2021-02-05 09:54 | Outpatient (REF) | payer OTHER, SELFPAY ==
[2021-02-05 12:32] LABS: Thyroid Stimulating Hormone 4.43 uIU/mL (0.32-4.0)
== END 2021-02-05 09:55 | disposition home or self-care (01) ==
LOC: HO.HMGCLDS 09:54
PROVIDERS: PCP Internal Medicine; Visit Provider Internal Medicine Endocrinology, Diabetes & Metabolism
DX: E89.0 Postprocedural hypothyroidism (principal)
CPT/HCPCS: 36415; 84439; 84443

== ENCOUNTER 2021-05-12 10:34 | Outpatient (REF) | payer OTHER, SELFPAY ==
[2021-05-15 09:52] LABS: HPV mRNA E6/E7 rflx Not Detected (Not Detected)
== END 2021-05-12 10:35 | disposition home or self-care (01) ==
LOC: HO.LAB 10:34
PROVIDERS: PCP Internal Medicine; Visit Provider Obstetrics & Gynecology
DX: N95.0 Postmenopausal bleeding (principal); Z11.51 Encounter for screening for human papillomavirus (HPV)
CPT/HCPCS: 87624; 88142; 99212

== ENCOUNTER 2021-05-20 08:22 | Day surgery (SDC) | payer OTHER, SELFPAY ==
--- NOTE | 2021-05-19 09:26 | P.CONAN_ITS ---
Documented by User: Britany Stewart NP 05/19/21 09:28 HPI - Anesthesia Eval Consult details Narrative: 50yo F for D&C Hysteroscopy possible myomectomy, possible polypectomy Chronic prn opioids PMFSH Active Problems Active Problems: All Active Problems (Updated 12/16/20 @ 08:58 by Eliana Winter NP) Postmenopausal bleeding (Acute) Well woman exam (Acute) Superficial bruising of lower leg (Acute) Cellulitis (Acute) Allergic rhinitis (Acute) Lumbar degenerative disc disease (Acute) Vitamin D deficiency (Acute) GERD without esophagitis (Acute) Cervical cancer screening (Acute) Colon cancer screening (Acute) Annual physical exam (Acute) Morbid obesity with BMI of 50.0-59.9, adult (Acute) Benign essential hypertension (Acute) Post-surgical hypothyroidism (Acute) Bilateral primary osteoarthritis of knee (Acute) Past Medical History Medical History Allergic rhinitis Benign essential hypertension Cervical cancer screening Colon cancer screening GERD without esophagitis Lumbar degenerative disc disease Morbid obesity with BMI of 50.0-59.9, adult Post-surgical hypothyroidism Superficial bruising of lower leg Vitamin D deficiency Family History Family History Father No problems noted. Mother DMII (diabetes mellitus, type 2) Brother No problems noted. Sister No problems noted. Son No problems noted. Son No problems noted. Daughter No problems noted. Daughter No problems noted. Family history of problems with anesthesia: No Surgical History Surgical History History of colonoscopy History of lobectomy of thyroid History of Problems with Anesthesia: No Social History Social History Housing: Apartment Alcohol intake: current Alcohol intake frequency: a few times a week Alcohol type: wine Patient Tobacco Use Status: Never used Tobacco Second Hand Smoke Exposure: Yes Advance Directives: No Advance Directives Information Provided: Yes service: No Current occupational status: employed Meds Allergies Allergy/AdvReac Type Severity Reaction Status Date / Time No Known Allergies Allergy Verified 05/20/21 08:39 Home Medications Medication Instructions Recorded Confirmed Last Taken Type cholecalciferol (vitamin D3) 25 25 mcg PO DAILY 12/02/19 02/05/21 11/19/20 History mcg (1,000 unit) chewable tablet (Kids First Vitamin D3) cranberry fruit concentrate 250 mg 250 mg PO TID 12/02/19 02/05/21 Unknown History chewable tablet (Azo Cranberry) ibuprofen 600 mg tablet 600 mg PO Q8H PRN 12/02/19 02/05/21 11/05/20 History magnesium 200 mg tablet 200 mg PO DAILY 12/02/19 02/05/21 Unknown History multivitamin,[id number] 1 tab PO DAILY 12/02/19 02/05/21 Unknown History (Complete Multivitamin) ferrous sulfate 325 mg (65 mg 325 mg PO DAILY 01/09/20 02/05/21 11/05/20 History iron) tablet Exam Exam Date and Time: May 19, [id number] Pertinent Lab Results Pertinent Lab Results: Laboratory Tests 09/10/20 09/10/20 12:09 12:09 WBC 6.4 Hgb 15.8 Hct 48.3 H Plt Count 299 Sodium 141 Potassium 4.6 Chloride 101 Carbon Dioxide 29 BUN 13 Creatinine 0.77 Assessment and Plan Assessment Anesthesia Assessment: Chart Reviewed Final Anesthetic Review Family History of Problems with Anesthesia: No History of Problems with Anesthesia: No Documented by User: Zachary Gabriel MD 05/20/21 08:50 [facility] Past Medical History Medical History Allergic rhinitis Benign essential hypertension Cervical cancer screening Colon cancer screening GERD without esophagitis Lumbar degenerative disc disease Morbid obesity with BMI of 50.0-59.9, adult Post-surgical hypothyroidism Superficial bruising of lower leg Vitamin D deficiency Family History Family History Father No problems noted. Mother DMII (diabetes mellitus, type 2) Brother No problems noted. Sister No problems noted. Son No problems noted. Son No problems noted. Daughter No problems noted. Daughter No problems noted. Surgical History Surgical History History of colonoscopy History of lobectomy of thyroid Social History Social History Housing: Apartment Alcohol intake: current Alcohol intake frequency: a few times a week Alcohol type: wine Patient Tobacco Use Status: Never used Tobacco Second Hand Smoke Exposure: Yes Advance Directives: No Advance Directives Information Provided: Yes service: No Current occupational status: employed Meds Allergies Allergy/AdvReac Type Severity Reaction Status Date / Time No Known Allergies Allergy Verified 05/20/21 08:39 Home Medications Medication Instructions Recorded Confirmed Last Taken Type cholecalciferol (vitamin D3) 25 25 mcg PO DAILY 12/02/19 02/05/21 11/19/20 History mcg (1,000 unit) chewable tablet (Kids First Vitamin D3) cranberry fruit concentrate 250 mg 250 mg PO TID 12/02/19 02/05/21 Unknown History chewable tablet (Azo Cranberry) ibuprofen 600 mg tablet 600 mg PO Q8H PRN 12/02/19 02/05/21 11/05/20 History magnesium 200 mg tablet 200 mg PO DAILY 12/02/19 02/05/21 Unknown History multivitamin,wz-[id number] 1 tab PO DAILY 12/02/19 02/05/21 Unknown History (Complete Multivitamin) ferrous sulfate 325 mg (65 mg 325 mg PO DAILY 01/09/20 02/05/21 11/05/20 History iron) tablet Exam Airway Mallampati Class: III TM Dist: >3cm Neck ROM: Full Assessment and Plan Assessment Anesthesia Assessment: Anesthesia Plan Discussed Final Anesthetic Review NPO: Yes ASA Class: III Final Preanesthetic Review: No Changes in Pt Med Stat, Meds/Allgs Chart Reviewed , Consent Obtained/Reviewed and Anes Risks/Benef Reviewed Patient Risk: Intermediate Procedure Risk: Low Anesthetic Plan Anesthetic Plan: GA Disposition: Standard PACU
[2021-05-20 08:41] VITALS: BMI 53.4
--- NOTE | 2021-05-20 08:56 | MHC.SHP ---
Pre-Procedural Eval Section A Date of Service: 05/20/21 The patient is an INPATIENT: No Changes since office visit: No Cold of Flu in the past 2 weeks, No New Medical Problems, No Changes in Medication and No Patient answered all questions The History & Physical has been completed within 30 days and I have reviewed it.: Yes Section B Chief Complaint: bleeding Allergies: Allergies Allergy/AdvReac Type Severity Reaction Status Date / Time No Known Allergies Allergy Verified 05/20/21 08:39 Plan Diagnosis/Plan: Unchanged I have reviewed the history and physical and performed a pertinent physical examination on my patient. No changes have occurred unless specified.
[2021-05-20 08:59] VITALS: BP 151/94; PULSE 98; RESP 18; TEMP 36.8; O2SAT 95
[2021-05-20] MEDS: Lactated Ringers 1,000 ML 100 ML IVCONT (09:18)
--- NOTE | 2021-05-20 10:30 | P.BOP_ITS ---
Brief Operative Note Date of Service: 05/20/21 Pre-op diagnosis: Postmenopausal bleeding Post-op diagnosis: same (Endometrial polyp) Procedure: Hysteroscopy D&C, Polypectomy Surgeon: Edgar Encarnacion MD Anesthesia: MAC Was an Field Artillery Cannoneer used for this Procedure?: No Estimated blood loss (mL): 0 Pathology: other (Endometrial Scrapping. Polyp) Condition: stable Disposition: PACU
--- NOTE | 2021-05-20 10:30 | W.PM.OPN ---
Operative Note Operative Note Date of Service: 05/20/21 Narrative: Preop Diagnosis: Postmenopausal bleeding Operation: Diagnostic Hysteroscopy, Dilataion & Curettage and polypectomy Post Op Diagnosis: Endometrial Polyp QBL: Minimal Anesthesia: MAC Surgeon: Edgar Encarnacion MD Library Cataloging Technician: None Complication: None Pathology: Endometrial Scrapings, Endometrial polyp Complication: None Pathology: Endometrial Scrapings, Endometrial polyp Procedure: The patient was put in the dorsal lithotomy position, scrubbed, and draped in the usual manner. A sterile speculum was inserted in the patient's vagina. The anterior lip of the cervix was grasped with a single tooth tenaculum. The cervix was dilated up to 5 mm, then the scope was inserted in the patient's uterus. Inspection revealed endometrial polyp. The Myosure Reach device was used; it was introduced through the operative channel and polypectomy done with no complications. Sharp curettings was carried on mild to moderate amount of tissues were retrieved. At the end of the procedure, all instruments were taken out of the patient uterine and vaginal cavity. The single tooth tenaculum was removed and homeostasis was assured using pressure,. The patient tolerated the procedure well and was transferred to the PACU in a stable condition.
[2021-05-20 10:37] VITALS: BP 165/107; PULSE 91; RESP 16; TEMP 36.7; O2SAT 97
[2021-05-20 10:42] VITALS: BP 154/98; PULSE 84; RESP 17; O2SAT 96
[2021-05-20] MEDS: Acetaminophen 325 MG TABLET 650 MG PO (10:45)
[2021-05-20 10:47] VITALS: BP 160/94; PULSE 82; RESP 17; O2SAT 95
[2021-05-20 10:52] VITALS: BP 129/73; PULSE 80; RESP 18; O2SAT 96
[2021-05-20 11:07] VITALS: BP 157/87; PULSE 79; RESP 17; TEMP 36.3; O2SAT 98
== END 2021-05-20 11:36 | disposition home or self-care (01) ==
PROVIDERS: PCP Internal Medicine; Visit Provider Obstetrics & Gynecology
PROC: 0UDB8ZZ Extraction of Endometrium, Via Natural or Artificial Opening Endoscopic (ICD-10-PCS; CPT 58558; principal; 2021-05-20 10:30)
DX: N95.0 Postmenopausal bleeding (principal); N84.0 Polyp of corpus uteri; I10 Essential (primary) hypertension; J30.9 Allergic rhinitis, unspecified; K21.9 Gastro-esophageal reflux disease without esophagitis; E89.0 Postprocedural hypothyroidism; E55.9 Vitamin D deficiency, unspecified; Z79.899 Other long term (current) drug therapy
CPT/HCPCS: 58558; 88305; J1100; J2250; J2405; J3010

== ENCOUNTER → 2021-06-03 14:28 | Outpatient (BNVA) | payer OTHER, SELFPAY | PROVIDERS: Visit Provider Obstetrics & Gynecology | DX: N95.0 Postmenopausal bleeding (principal) | CPT/HCPCS: Q3014 ==

== ENCOUNTER 2021-11-03 08:26 | Outpatient (REF) | payer OTHER, SELFPAY ==
[2021-11-03 11:53] LABS: Free T4 (Free Thyroxine) 1.26 ng/dL (0.71-1.85); Thyroid Stimulating Hormone 4.17 uIU/mL (0.32-4.0)
== END 2021-11-03 08:27 | disposition home or self-care (01) ==
LOC: HO.HMGCLDS 08:26
PROVIDERS: PCP Internal Medicine; Visit Provider Internal Medicine Endocrinology, Diabetes & Metabolism
DX: E89.0 Postprocedural hypothyroidism (principal)
CPT/HCPCS: 36415; 84439; 84443

== ENCOUNTER → 2021-11-04 09:58 | Outpatient (BNVA) | payer OTHER, SELFPAY | PROVIDERS: PCP Internal Medicine; Visit Provider Internal Medicine Endocrinology, Diabetes & Metabolism | DX: E89.0 Postprocedural hypothyroidism (principal) | CPT/HCPCS: 99212 ==

== ENCOUNTER 2021-12-22 12:57 | Outpatient (REF) | payer OTHER, SELFPAY ==
[2021-12-22 14:31] LABS: Free T4 (Free Thyroxine) 1.69 ng/dL (0.71-1.85); Thyroid Stimulating Hormone 0.03 uIU/mL (0.32-4.0)
== END 2021-12-22 12:58 | disposition home or self-care (01) ==
LOC: HO.HMGCLDS 12:57
PROVIDERS: PCP Internal Medicine; Visit Provider Internal Medicine Endocrinology, Diabetes & Metabolism
DX: E89.0 Postprocedural hypothyroidism (principal)
CPT/HCPCS: 36415; 84439; 84443

== ENCOUNTER 2022-01-14 10:01 | Outpatient (REF) | payer OTHER, SELFPAY ==
[2022-01-14 11:32] LABS: Appearance Urine Cloudy; Color Urine Yellow; Glucose Urine UA Negative (Negative); Leukocyte Esterase Urine Large (3+) (Negative); Nitrite Urine Negative (Negative); UMIC TRIGGER UACC YES; Urine Blood Small (1+) (Negative); Urine Ketones Negative (Negative); Urine Protein 30 (1+) mg/dL (Neg-Trace)
[2022-01-14 11:34] LABS: MANUAL DIFF FLAG NO
[2022-01-14 11:44] LABS: Basophils Percent Auto 0.5 % (0-2); Eosinophils Absolute Auto 0.1 X10*3/uL (0.0-0.4); Hematocrit 48.9 % (37.0-47.0); Hemoglobin 15.8 g/dl (12.0-16.0); Imm Gran Abs Auto 0.02 X10*3/uL (0.00-0.03); Imm Gran Pct Auto 0.3 % (0.0-0.4); Lymphocytes Absolute Auto 1.6 X10*3/uL (1.2-4.9); Mean Corpuscular HGB Conc 32.3 g/dl (31.0-35.0); Mean Corpuscular Hemoglobin 28.6 pg (27.0-33.0); Mean Corpuscular Volume 88.4 fL (80.0-98.0); Mean Platelet Volume 9.2 fL (9.4-12.3); Monocytes Absolute Auto 0.5 X10*3/uL (0.1-1.2); Monocytes Percent Auto 7.6 % (2-11); Neutrophils Absolute Auto 4.2 x10*3/uL (2.0-8.3); Neutrophils Percent Auto 64.6 % (45-73); Platelet Count 273 X10*3/uL (160-400); Red Blood Count 5.53 X10*6/uL (4.20-5.50); Red Cell Distribution Width 12.2 % (11.0-16.0); White Blood Count 6.6 X10*3/uL (4.8-10.8)
[2022-01-14 11:57] LABS: Bacteria Urine 4+ (None Seen); Hyaline Casts Urine 0-2 /LPF (0-2); Squamous Epithelial Cell Urine >20 /HPF (0-2); UACC Culture Trigger YES; WBC Urine 0-5 /HPF (0-5)
[2022-01-14 12:13] LABS: Alanine Aminotransferase 18 U/L (0-31); Albumin Level 3.9 g/dL (3.5-5.0); Alkaline Phosphatase 71 U/L (39-117); Anion Gap 14 (12-20); Aspartate Amino Transferase 17 U/L (5-31); Bilirubin Total 0.6 mg/dL (0.0-1.0); Blood Urea Nitrogen 10 mg/dL (9-16); Calcium 9.1 mg/dL (8.4-10.2); Carbon Dioxide 28 mmol/L (22-29); Chloride 102 mmol/L (96-108); Cholesterol 160 mg/dL; Estimated Glomerular Filt Rate > 60; Glucose Fasting 87 mg/dL (60-99); HDL Cholesterol 35 mg/dL; LDL Cholesterol Calculated 94 mg/dl; Potassium 4.7 mmol/L (3.3-5.1); Sodium 139 mmol/L (135-145); Total Protein 6.6 g/dL (6.5-8.0); Triglycerides 156 mg/dL
[2022-01-14 12:20] LABS: Free T4 (Free Thyroxine) 1.59 ng/dL (0.71-1.85); Thyroid Stimulating Hormone 0.03 uIU/mL (0.32-4.0)
[2022-01-14 14:39] LABS: Vitamin D 25-OH Total 45.3 ng/mL (>30)
== END 2022-01-14 10:02 | disposition home or self-care (01) ==
LOC: HO.HMGCLDS 10:01
PROVIDERS: PCP Internal Medicine; Visit Provider Internal Medicine
DX: Z00.00 Encounter for general adult medical examination without abnormal findings (principal); I10 Essential (primary) hypertension; E78.00 Pure hypercholesterolemia, unspecified; E03.9 Hypothyroidism, unspecified; E55.9 Vitamin D deficiency, unspecified
CPT/HCPCS: 36415; 80053; 80061; 81001; 82306; 84439; 84443; 85025; 87086; 87147

== ENCOUNTER 2022-02-11 12:53 | Outpatient (REF) | payer OTHER, SELFPAY ==
[2022-02-11 16:00] LABS: Free T4 (Free Thyroxine) 1.33 ng/dL (0.71-1.85); Thyroid Stimulating Hormone 0.05 uIU/mL (0.32-4.0)
== END 2022-02-11 12:54 | disposition home or self-care (01) ==
LOC: HO.HMGCLDS 12:53
PROVIDERS: PCP Internal Medicine; Visit Provider Internal Medicine Endocrinology, Diabetes & Metabolism
DX: E89.0 Postprocedural hypothyroidism (principal)
CPT/HCPCS: 36415; 84439; 84443

== ENCOUNTER 2022-04-04 10:15 | Outpatient (REF) | payer OTHER, SELFPAY ==
[2022-04-04 13:05] LABS: Free T4 (Free Thyroxine) 1.03 ng/dL (0.71-1.85); Thyroid Stimulating Hormone 0.42 uIU/mL (0.32-4.0)
== END 2022-04-04 10:16 | disposition home or self-care (01) ==
LOC: HO.HMGCLDS 10:15
PROVIDERS: Visit Provider Internal Medicine Endocrinology, Diabetes & Metabolism
DX: E89.0 Postprocedural hypothyroidism (principal)
CPT/HCPCS: 36415; 84439; 84443

== ENCOUNTER 2022-04-06 07:54 | Outpatient (REF) | payer OTHER, SELFPAY ==
--- NOTE | ~2022-04-06 | MM_ITS ---
EXAMINATION: MM SCREENING DIGITAL BREAST TOMOSYNTHESIS, BILATERAL CLINICAL INFORMATION: Screening. Asymptomatic. The lifetime risk of breast cancer based on the Tyrer-Cuzick Model is 14%. COMPARISON: Mammography: 09/17/2020, 09/12/2019, 06/15/2018 TECHNIQUE: Digital breast tomosynthesis is performed in both the craniocaudal and mediolateral oblique views along with computer-aided detection (CAD). Synthesized 2D images are generated from the tomosynthesis. Additional views are provided: Left CC x2, right CC, bilateral MLO. FINDINGS: There are scattered areas of fibroglandular density (ACR BI-RADS breast composition Category b). There are no significant masses, abnormal calcifications, or other abnormalities. Parenchymal pattern is similar to prior studies. There is no developing density or architectural abnormality. The axilla and skin contours are unremarkable. No significant changes. MM/MM tomosynthesis screening BI IMPRESSION: No mammographic evidence of malignancy. ASSESSMENT: BI-RADS 1: Negative RECOMMENDATION: Routine annual mammography screening. This patient's information was entered into a reminder system with a target due date for their next mammogram.
== END 2022-04-06 07:55 | disposition home or self-care (01) ==
LOC: HO.MAMMO 07:54
PROVIDERS: PCP Internal Medicine; Visit Provider Internal Medicine
DX: Z12.31 Encounter for screening mammogram for malignant neoplasm of breast (principal)
CPT/HCPCS: 77063; 77067

== ENCOUNTER → 2022-04-27 12:36 | Outpatient (BNVA) | payer OTHER, SELFPAY | PROVIDERS: PCP Internal Medicine; Visit Provider Obstetrics & Gynecology | DX: N95.0 Postmenopausal bleeding (principal) | CPT/HCPCS: 99212 ==

== ENCOUNTER 2022-05-04 14:30 | Outpatient (REF) | payer OTHER, SELFPAY ==
--- NOTE | ~2022-05-04 | US_ITS ---
EXAMINATION: US PELVIS CLINICAL INFORMATION: Postmenopausal bleeding. COMPARISON: None. TECHNIQUE: Ultrasound of the pelvis is performed using both transabdominal and transvaginal transducers along with Doppler. Transvaginal imaging is performed due to inadequate visualization transabdominally. FINDINGS: Uterus: The uterus is anteverted, anteflexed and measures 12.28 cm in length, 6.8 AP and 9.0 cm in transverse dimension. The double wall endometrial thickness is 0.62 cm. The uterus is smooth in contour and has normal myometrial echogenicity. No visible fibroid. There are small nabothian cysts seen in the cervix. Adnexa: Both ovaries are not visualized. US/US pelvic and transvaginal IMPRESSION: 1. Small nabothian cysts in the cervix. 2. The uterus is unremarkable. 3. The ovaries are not seen.
== END 2022-05-04 14:31 | disposition home or self-care (01) ==
LOC: HO.HMGCX 14:30
PROVIDERS: PCP Internal Medicine; Visit Provider Obstetrics & Gynecology
DX: N95.0 Postmenopausal bleeding (principal)
CPT/HCPCS: 76830; 76856

== ENCOUNTER 2022-05-25 15:07 | Outpatient (REF) | payer OTHER, SELFPAY | END 2022-05-25 15:08 | disposition home or self-care (01) | LOC: HO.LNP 15:07 | PROVIDERS: PCP Internal Medicine; Visit Provider Obstetrics & Gynecology | DX: N95.0 Postmenopausal bleeding (principal) | CPT/HCPCS: 58100; 88305; 99212 ==

== ENCOUNTER → 2022-05-26 09:40 | Outpatient (BNVA) | payer OTHER, SELFPAY | PROVIDERS: PCP Internal Medicine; Visit Provider Internal Medicine Endocrinology, Diabetes & Metabolism | DX: E89.0 Postprocedural hypothyroidism (principal) | CPT/HCPCS: 99212 ==

== ENCOUNTER → 2022-06-01 08:42 | Outpatient (BNVA) | payer OTHER, SELFPAY | PROVIDERS: PCP Internal Medicine; Visit Provider Obstetrics & Gynecology | DX: N85.01 Benign endometrial hyperplasia (principal) | CPT/HCPCS: 99212 ==

== ENCOUNTER 2022-09-27 04:39 | Emergency (ER) | payer OTHER, SELFPAY ==
[2022-09-27 04:48] VITALS: BP 159/89; PULSE 82; RESP 16; TEMP 36.1; O2SAT 93; BMI 56.9
--- NOTE | 2022-09-27 05:03 | PC.NURSE ---
Assumed care of pt. pt ambulated to room under own power., Sts seen previously 2-2.5 years [employer]DER for same, given injections for swelling and pain with relief.
[2022-09-27 05:38] VITALS: BP 149/88; PULSE 81; RESP 16; TEMP 36.6; O2SAT 92
[2022-09-27 06:00] VITALS: BP 156/84; PULSE 92; RESP 18; TEMP 36.6; O2SAT 97
--- NOTE | 2022-09-27 06:24 | ED_ITS ---
HPI - General Adult General Chief complaint: General Medical Stated complaint: back pain/leg pain Time Seen by Provider: 09/27/22 06:24 Source: patient Mode of arrival: ambulatory Limitations: no limitations History of Present Illness HPI narrative: Patient is A 51-year-old female with history of degenerative disc disease presenting to the emergency department with acute exacerbation of chronic low back pain for the past week after ambulating in flip flops for the past month. She states that she can typically control her exacerbations with ibuprofen but symptoms have not improved with her typical treatment of ibuprofen, heat, warm showers. Pain is radiating to bilateral anterior upper legs. She denies any recent falls or other trauma. Denies any saddle anesthesia or bowel or bladder incontinence. Reports pain has improved in the past with IM toradol in the ED. Denies any numbness or tingling to lower extremities. MD complaint: lumbar pain Onset (ago): day(s) Location: back Radiation: extremity and distal Severity: severe Severity scale (1-10): 9 Quality: burning Pain Consistency: constant Relieving factors: rest Exacerbating factors: movement Associated symptoms: denies other symptoms Treatments prior to arrival: NSAID and heat therapy Related Data Home Medications Medication Instructions Recorded Confirmed cholecalciferol (vitamin D3) 25 25 mcg PO DAILY 12/02/19 08/16/22 mcg (1,000 unit) chewable tablet (Kids First Vitamin D3) ibuprofen 600 mg tablet 600 mg PO Q8H PRN pain 12/02/19 08/16/22 magnesium 200 mg tablet 200 mg PO DAILY 12/02/19 08/16/22 multivitamin,[id number] 1 tab PO DAILY 12/02/19 08/16/22 (Complete Multivitamin tablet) calcium carbonate 600 mg calcium 600 mg PO DAILY 08/16/22 08/16/22 (1,500 mg) tablet (Calcium) cranberry fruit concentrate 250 mg 250 mg PO DAILY 08/16/22 08/16/22 chewable tablet (Azo Cranberry) Previous Rx's Medication Instructions Recorded ferrous sulfate 325 mg (65 mg 325 mg PO DAILY #30 tabs 12/15/21 iron) tablet lisinopril 10 mg tablet 10 mg PO DAILY #90 tabs 03/11/22 diazepam 10 mg tablet (Valium) See Rx Instructions PO BID PRN 05/16/22 anxiety 30 days #30 tabs cyclobenzaprine 10 mg tablet 10 mg PO BEDTIME PRN muscle spasm 05/31/22 30 days #30 tabs loratadine 10 mg tablet 10 mg PO DAILY #30 tabs 06/17/22 Levoxyl 200 mcg tablet 200 mcg PO DAILY 90 days #90 tabs 07/22/22 (levothyroxine) Levoxyl 25 mcg tablet 25 mcg PO DAILY 90 days #90 tabs 07/22/22 (levothyroxine) oxycodone-acetaminophen 5 mg-325 1 tab PO Q6H PRN pain 30 days #120 09/19/22 mg tablet (Percocet) tabs prednisone 20 mg tablet 40 mg PO DAILY #10 tabs 09/27/22 Allergies Allergy/AdvReac Type Severity Reaction Status Date / Time No Known Allergies Allergy Verified 08/16/22 13:35 Review of Systems Review of Systems: As per HPI. Yes all other systems are reviewed and are negative Constitutional: Constitutional: Reports as per HPI [facility] Past Medical History Medical History (Updated 09/27/22 @ 07:42 by Mery Barajas NP) Allergic rhinitis Benign essential hypertension GERD without esophagitis Lumbar degenerative disc disease Morbid obesity with BMI of 50.0-59.9, adult Post-surgical hypothyroidism Vitamin D deficiency Surgical History (Updated 08/16/22 @ 13:49 by Sascha Arboleda MD) History of colonoscopy History of lobectomy of thyroid History of robot-assisted laparoscopic hysterectomy (~08/03/22) Hx of cervical biopsy Family History Family History Father No problems noted. Mother DMII (diabetes mellitus, type 2) Brother No problems noted. Sister No problems noted. Son No problems noted. Son No problems noted. Daughter No problems noted. Daughter No problems noted. Social History Social History Household Members: Spouse Household Members Other:: son Housing: Apartment Alcohol intake: current Alcohol intake frequency: holidays/special occasions only Alcohol type: wine Patient Tobacco Use Status: Never used Tobacco Smoked in Last 30 Days: No e-Cigarette/Vaping Use: Never Used Second Hand Smoke Exposure: Yes Use of substances other than those prescribed or required for medical reasons: Yes Substance Use Type: Marijuana Substance Use Frequency: Chronic Longstanding Advance Directives: No Advance Directives Information Provided: Yes Patient : No service: No Current occupational status: employed 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 Blood pressure elevated. Heart rate normal. Respiratory rate normal. Temperature normal. Oxygen saturation normal. Const General: cooperative, healthy appearing and no acute distress Orientation/consciousness: oriented to person, oriented to place, oriented to time and patient oriented x3 Limitations: no limitations HENMT Head: Yes normocephalic and Yes atraumatic Ears: external ears normal General nose exam: Normal external nose present Face and sinus: Yes face symmetric Mouth: oropharynx normal and moist mucous membranes Throat: Yes uvula midline Eyes Pupils: Equal, round and reactive pupils present Neck Neck: Yes normal visual inspection and Yes supple Resp Effort & Inspection: normal respiratory effort and able to speak in complete sentences Auscultation: clear to auscultation bilaterally Cardio Rate: regular rate Rhythm: regular rhythm Heart sounds: S1 normal heart sound present and S2 normal heart sound present GI Palpation (GI): Soft to palpation and nontender Auscultation: normoactive bowel sounds General: Yes no CVA tenderness Back/Spine/Pelvis Back: no CVA tenderness Cervical Spine: cervical ROM normal and No Cervical spine tenderness Thoracic/Lumbar Spine: thoracic and lumbar spine normal to inspection, thoraco- lumbar ROM normal, straight leg raise negative bilaterally, No thoracic spinal tenderness and No lumbar spinal tenderness Pelvis: no pain with anterior-posterior compression and no pain with lateral compression Skin General skin exam: elasticity normal and turgor normal Neuro General: oriented to person, oriented to place, oriented to time, patient oriented x3, moves all extremities, Normal light touch and pain sensation, no focal motor deficits, CN's II-XI intact bilaterally, normal sensation to monof ilament and deep tendon reflexes 2+ bilaterally Cranial nerves: Yes Equal, round and reactive pupils present Cognition (Neuro): normal cognition Extrem General: Yes full ROM, Yes no pedal edema and Yes no calf tenderness Psych Mental Status: mental status grossly normal Affect: normal affect Thought process: Normal thought process present Medications Administered Discontinued Medications Generic Name Dose Route Start Last Admin Trade Name Freq PRN Reason Stop Dose Admin Ketorolac Tromethamine 30 mg 09/27/22 06:29 09/27/22 06:46 Ketorolac Tromethamine 30 Mg/Ml Vial IM 09/27/22 06:30 30 mg ONCE ONE Administration Medical Decision Making Medical Decision Making [facility] Narrative: Patient is A 51-year-old female with history of degenerative disc disease presenting to the emergency department with acute exacerbation of chronic low back pain for the past week after ambulating in flip flops for the past month. On exam patient is awake, A+Ox3, BP slightly elevated likely secondary to pain, VS otherwise WNL, afebrile, normal neurological exam without focal deficits, DTRs 2+ throughout, negative SLR bilaterally, no red flag findings on exam. Given reported symptoms and physical exam findings, initial differential includes acute exacerbation of chronic pain related to DDD, lumbar strain, lumbar radiculopathy. Less likely UTI/pyelonephritis, renal colic. Unlikely cauda equina, spinal epidural abscess, compression fracture, malignancy/mass, AAA rupture, aortic dissection, PE. Labs notable for 1+ blood on UA, likely unrelated as patient denies urinary symptoms, has no CVA tenderness. 07:38 Patient reports pain has decreased by half, is comfortable with discharge home. Will prescribe short course of prednisone and instructed patient to follow up with PCP. Patient advised no NSAIDs while on the prednisone. Return precautions discussed at bedside. Patient verbalized understanding of and agreement with plan. Differential Diagnosis Differential Diagnoses: The differential diagnosis associated with the presentation includes As per [facility]. Lab Data [facility] Lab Attestation statement: I reviewed the patient's lab results. As per [facility]. Labs: Lab Results 09/27/22 Range/Units 06:52 Urine Color Yellow Urine Appearance Clear Urine pH 5.5 (5.0-9.0) Ur Specific [place] 1.020 (1.005-1.025) Urine Protein Negative (Neg-Trace) mg/dL Urine Glucose (UA) Negative (Negative) mg/dL Urine Ketones Negative (Negative) mg/dL Urine Blood Small (1+) H (Negative) Urine Nitrite Negative (Negative) Ur Leukocyte Esterase Negative (Negative) Urine RBC 3-5 H (0-2) /HPF Urine WBC 0-5 (0-5) /HPF Ur Squamous Epith Cells 6-10 (0-2) /HPF Urine Bacteria None Seen (None Seen) Hyaline Casts 0-2 (0-2) /LPF External Record Review External record reviewed: Inpatient record, Office record and Outpatient record Tests considered The following testing was considered but not selected: Considered x-ray, however patient denies any fall or other trauma Prescription Management I considered prescription management with: Other (prednisone) Chronic Conditions Patient?s care impacted by: Hypertension Discharge Plan Discharge Clinical Impression: Lumbar degenerative disc disease, Acute lumbar radiculopathy Patient Disposition: Home, Self-Care Instructions: Acute Low Back Pain (ED), Degenerative Disc Disease (ED) Additional Instructions: You were evaluated in the emergency department today for back pain. Your evalu ation did not show signs of medical conditions requiring emergent intervention at this time. You are being prescribed a short course of a steroid called prednisone to decrease inflammation. DO NOT TAKE ANY NSAIDs (ibuprofen, naproxen, etc) while taking the prednisone. You may resume use of NSAIDs once you have completed the prednisone. We recommended that you use ibuprofen or Tylenol per package directions every 6 hours as needed for pain. If necessary, you can alternate these medications so that you take one medication every 3 hours. For instance, at noon take ibuprofen, then at 3:00 p.m. take Tylenol, then at 6:00 p.m. take ibuprofen. Please schedule an appointment for follow-up with your primary care physician this week for further evaluation of your symptoms. Return to the emergency department if you experience worsening back pain, difficulty walking, fevers, numbness, tingling, incontinence, groin numbness or tingling, or any other concerning symptoms. Prescriptions: New prednisone 20 mg tablet 40 mg PO DAILY Qty: 10 0RF No Action ferrous sulfate 325 mg (65 mg iron) tablet 325 mg PO DAILY Qty: 30 2RF lisinopril 10 mg tablet 10 mg PO DAILY Qty: 90 3RF diazepam [Valium] 10 mg tablet See Rx Instructions PO BID PRN (Reason: anxiety) 30 Days Qty: 30 1RF Rx Instructions: take 1/2 to 1 tablet by mouth twice a day as needed cyclobenzaprine 10 mg tablet 10 mg PO BEDTIME PRN (Reason: muscle spasm) 30 Days Qty: 30 1RF loratadine 10 mg tablet 10 mg PO DAILY Qty: 30 4RF levothyroxine [Levoxyl] 25 mcg tablet 25 mcg PO DAILY 90 Days Qty: 90 1RF Rx Instructions: To be taken together with Levoxyl 200 mcg - total of 225 mcg QD levothyroxine [Levoxyl] 200 mcg tablet 200 mcg PO DAILY 90 Days Qty: 90 1RF Rx Instructions: To be taken together with Levoxyl 25 mcg - total of 225 mcg QD oxycodone-acetaminophen [Percocet] 5-325 mg tablet 1 tab PO Q6H PRN (Reason: pain) 30 Days Qty: 120 0RF calcium carbonate [Calcium 600] 600 mg calcium (1,500 mg) tablet 600 mg PO DAILY Complete Multivitamin Tablet 1 tab PO DAILY magnesium 200 mg tablet 200 mg PO DAILY cholecalciferol (vitamin D3) [Kids First Vitamin D3] 25 mcg (1,000 unit) tablet,chewable 25 mcg PO DAILY ibuprofen 600 mg tablet 600 mg PO Q8H PRN (Reason: pain) Azo Cranberry 250 mg tablet,chewable 250 mg PO DAILY
[2022-09-27] MEDS: Ketorolac Tromethamine 30 MG/ML VIAL IM (06:46)
[2022-09-27 06:59] LABS: Appearance Urine Clear; Color Urine Yellow; Glucose Urine UA Negative (Negative); Leukocyte Esterase Urine Negative (Negative); Nitrite Urine Negative (Negative); PH 5.5 (5.0-9.0); UMIC TRIGGER UACC YES; Urine Blood Small (1+) (Negative); Urine Ketones Negative (Negative); Urine Protein Negative (Neg-Trace)
[2022-09-27 07:06] LABS: Bacteria Urine None Seen (None Seen); Hyaline Casts Urine 0-2 /LPF (0-2); WBC Urine 0-5 /HPF (0-5)
--- NOTE | 2022-09-27 07:37 | PC.NURSE ---
assumed care of pt at 0700. pt reports that her back pain is a 5/10. pt resting quietly and comfortably.
--- NOTE | 2022-09-27 08:01 | PC.NURSE ---
reviewed discharge paper work with pt and friend at bedside. Pt had no questions at this time.
== END 2022-09-27 08:40 | disposition home or self-care (01) ==
PROVIDERS: Registered Nurse Emergency; Emergency Provider Emergency Medicine; PCP Internal Medicine
DX: M54.50 Low back pain, unspecified (principal); M54.16 Radiculopathy, lumbar region; M51.36 Other intervertebral disc degeneration, lumbar region; I10 Essential (primary) hypertension; Z79.899 Other long term (current) drug therapy
CPT/HCPCS: 81001; 96372; 99284; J1885

== ENCOUNTER 2022-09-29 14:42 | Outpatient (AMB) | payer OTHER, SELFPAY ==
[2022-09-29 14:44] VITALS: BP 148/82; PULSE 112; O2SAT 98; BMI 56.8
--- NOTE | 2022-09-29 14:44 | MHC.PC.OV ---
Vital Signs 09/29/22 14:44 Height 5 ft 6 in Weight 352 lb BMI 56.8 BP 148/82 H Blood Pressure Location Lt brachial Position Sitting Pulse 112 H Pulse Source Pulse Oximeter Pulse Oximetry (%) 98 Oxygen Delivery Method Room Air Intake Visit Reasons: [facility]/09-27/Wm in back Allergies No Known Allergies Allergy (Verified 09/29/22 14:55) Medication List - Last Reconciled 09/29/22 by Madan Gastelum PA-C calcium carbonate (Calcium) 600 mg PO DAILY cholecalciferol (vitamin D3) (Kids First Vitamin D3) 25 mcg PO DAILY cranberry fruit concentrate (Azo Cranberry) 250 mg PO DAILY cyclobenzaprine 10 mg PO BEDTIME PRN 30 days diazepam (Valium) take 1/2 to 1 tablet by mouth twice a day as needed 30 days ferrous sulfate 325 mg PO DAILY ibuprofen 600 mg PO Q8H PRN Levoxyl (levothyroxine) 200 mcg PO DAILY 90 days NS Levoxyl (levothyroxine) 25 mcg PO DAILY 90 days NS lisinopril 10 mg PO DAILY loratadine 10 mg PO DAILY magnesium 200 mg PO DAILY multivitamin,[id number] (Complete Multivitamin tablet) 1 tab PO DAILY oxycodone-acetaminophen 5-325 mg (Percocet) 1 tab PO Q6H PRN 30 days prednisone 40 mg (2 x 20 mg) PO DAILY Tobacco use date assessed: 08/16/22 Dental Screening Dental Screen Date: 09/29/22 Did you have a dental visit in the last 12 months?: Yes Did you have a dental problem in the last 6 months where you did not have access to dental care?: No Was dental information given to patient?: Patient has dentist HPI [facility]/09-27/Wm in back HPI Details Patient is a 51-year-old female here today for an ER follow-up visit. Patient was seen for acute on chronic lower back pain with radiculopathy. She was placed on prednisone 40 mg which has offered here significant relief of her back pain. She is interested in getting a script for prednisone 40 mg x 5 days for emergencies only. [facility] Medical History Allergic rhinitis Benign essential hypertension GERD without esophagitis Lumbar degenerative disc disease Morbid obesity with BMI of 50.0-59.9, adult Post-surgical hypothyroidism Vitamin D deficiency Surgical History History of colonoscopy History of lobectomy of thyroid History of robot-assisted laparoscopic hysterectomy (~08/03/22) Hx of cervical biopsy Family History Father No problems noted. Mother DMII (diabetes mellitus, type 2) Brother No problems noted. Sister No problems noted. Son No problems noted. Son No problems noted. Daughter No problems noted. Daughter No problems noted. 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 1. Little interest or pleasure in doing things: not at all 2. Feeling down, depressed, or hopeless: not at all 3. Trouble falling or staying asleep, or sleeping too much: not at all 4. Feeling tired or having little energy: not at all 5. Poor appetite or overeating: not at all 6. Feeling bad about yourself - or that you are a failure or have let yourself or your family down: not at all 7. Trouble concentrating on things, such as reading the newspaper or watching television: not at all 8. Moving or speaking so slowly that other people could have noticed. Or the opposite - being so fidgety or restless that you have been moving around a lot more than usual: not at all 9. Thoughts that you would be better off or of hurting yourself in some way: not at all Total score: 0 Depression Screening Interpretation: Negative 53639 - PHQ-9 Billing: Yes Source: Developed by Drs. Reza Cooper, Chantel Beltran, Mir Ren and colleagues, with an educational tahira from [employer]. Thrive Questionnaire Date Thrive assessed: 08/16/22 AUDIT C Alcohol Use Questionnaire (AUDIT-C) 1. How often do you have a drink containing alcohol?: 2-3 times a week 2. How many drinks containing alcohol do you have on a typical day when you are drinking?: 1 or 2 Total Score: 3 Score Reviewed/Action Taken: Yes JUAN JOSÉ-7 AMB Questionnaire JUAN JOSÉ-7 Date JUAN JOSÉ - 7 assessed: 08/16/22 Source: Developed by Drs. Reza Cooper, Chantel Beltran, Mir Ren and colleagues, with an educational tahira from [employer]. Review of Systems Const Denies headache(s) Eyes Denies loss of vision ENT Denies vertigo, Denies dizziness, Denies headache(s) and Denies sore throat Card Denies chest pain, Denies leg edema and Denies lightheadedness Resp Denies cough, Denies hemoptysis and Denies wheezing GI Denies abdominal pain, Denies melena, Denies constipation, Denies diarrhea and Denies vomiting Denies urinary frequency, Denies dysuria and Denies urinary urgency Musc Denies arthralgias, Denies joint swelling, Denies numbness and Denies tingling Neuro Denies Abnormal speech present, Denies behavioral changes, Denies vertigo, Denies dizziness, Denies headache(s), Denies loss of vision, Denies memory loss, Denies numbness and Denies tingling Psych Denies anxiety, Denies behavioral changes, Denies depression, Denies memory loss and Denies panic attacks Victorino/Lymph Denies easy bleeding and Denies easy bruising Aller/Immun Denies wheezing Physical exam (Primary Care) Vital Signs: Last Vital Signs Pulse 112 H 09/29/22 14:44 BP 148/82 H 09/29/22 14:44 Pulse Ox 98 09/29/22 14:44 Oxygen Delivery Method Room Air 09/29/22 14:44 BMI result Body Mass Index 56.8 Tobacco/Smoking Status: Tobacco use Status Tobacco use date assessed 08/16/22 09/29/22 14:51 Patient Tobacco Use Status Never used Tobacco 09/29/22 14:51 e-Cigarette/Vaping Use Never Used 09/29/22 14:51 PHQ-9: PHQ-9 Score PHQ-9: Total score 0 09/29/22 14:51 Depression Screening Interpretation: Negative Thrive Assessment: Date of Thrive Assessment Date Thrive assessed 08/16/22 09/29/22 14:51 Const General: healthy appearing, no acute distress, alert and awake Nutritional Appearance: well nourished Orientation/consciousness: oriented to person, oriented to place and oriented to time HENMT Ears: TM's normal bilaterally General nose exam: Normal nasal mucous membranes and turbinates present Eyes Conjunctivae: conjunctivae normal Sclerae: sclerae normal Pupils: Equal, round and reactive pupils present Neck Neck: Yes no lymphadenopathy and Yes no JVD Thyroid: Thyroid normal Carotids: no bruits Resp Effort & Inspection: normal respiratory effort and not tachypneic Auscultation: no crackles, no rales, no rhonchi and no wheezes Cardio Rate: regular rate Rhythm: regular rhythm Heart sounds: no murmurs and normal S1 and S2 GI Palpation (GI): Soft to palpation, nontender, no hepatomegaly and no splenomegaly Auscultation: normal bowel sounds Skin General skin exam: no rashes or lesions noted and dry skin Neuro General: oriented to person, oriented to place and oriented to time Cranial nerves: Yes Equal, round and reactive pupils present Speech: No Abnormal speech present Gait exam (Neuro): Normal gait present Motor exam (neuro): no tremor noted Extrem Right upper extremity: full ROM Left upper extremity: full ROM Right lower extremity: full ROM; no edema Left lower extremity: full ROM; no edema Psych Mental Status: mental status grossly normal Speech and movement: Normal speech and movement present Affect: normal affect Attitude: cooperative Thought process: Normal thought process present Assessment and Plan Assessment & Plan (1) Lumbar degenerative disc disease: Code(s): M51.36 - Other intervertebral disc degeneration, lumbar region Plan: Patient has a chronic history of lumbar disc disease. She has flares every now and then which are handled usually by Toradol injections at the ER. She was given prednisone 40 mg x 5 days which has offered her significant relief of her back pain. She is interested in having an emergency script for the prednisone in case of any recurrent back flare to reduce her need to be seen at ER. Medications: Refilled prednisone 40 mg (2 x 20 mg) PO DAILY 10 tabs 0RF M51.36 - Other intervertebral disc degeneration, lumbar region Coding Level of Care Code Est Pt Level 3 (42661) Diagnoses Lumbar degenerative disc disease M51.36
== END 2022-09-29 15:12 | disposition home or self-care (01) ==
PROVIDERS: PCP Internal Medicine; Visit Provider Physician Assistant
DX: M51.36 Other intervertebral disc degeneration, lumbar region (principal)
CPT/HCPCS: 99213

== ENCOUNTER 2023-04-07 08:49 | Outpatient (REF) | payer OTHER, SELFPAY ==
[2023-04-07 11:45] LABS: MANUAL DIFF FLAG NO
[2023-04-07 11:59] LABS: Basophils Absolute Auto 0.1 X10*3/uL (0.0-0.2); Basophils Percent Auto 0.8 % (0-2); Eosinophils Absolute Auto 0.2 X10*3/uL (0.0-0.4); Eosinophils Percent Auto 2.7 % (0-4); Hematocrit 47.1 % (37.0-47.0); Hemoglobin 15.2 g/dl (12.0-16.0); Imm Gran Abs Auto 0.05 X10*3/uL (0.00-0.03); Imm Gran Pct Auto 0.8 % (0.0-0.4); Lymphocytes Absolute Auto 1.9 X10*3/uL (1.2-4.9); Lymphocytes Percent Auto 29.8 % (20-40); Mean Corpuscular HGB Conc 32.3 g/dl (31.0-35.0); Mean Corpuscular Volume 89.9 fL (80.0-98.0); Mean Platelet Volume 9.1 fL (9.4-12.3); Monocytes Absolute Auto 0.5 X10*3/uL (0.1-1.2); Monocytes Percent Auto 8.1 % (2-11); Neutrophils Absolute Auto 3.6 x10*3/uL (2.0-8.3); Neutrophils Percent Auto 57.8 % (45-73); Platelet Count 268 X10*3/uL (160-400); Red Blood Count 5.24 X10*6/uL (4.20-5.50); Red Cell Distribution Width 13.4 % (11.0-16.0); White Blood Count 6.2 X10*3/uL (4.8-10.8)
[2023-04-07 12:15] LABS: Alanine Aminotransferase 17 U/L (0-31); Albumin Level 3.8 g/dL (3.5-5.0); Alkaline Phosphatase 65 U/L (39-117); Anion Gap 11 (12-20); Aspartate Amino Transferase 20 U/L (5-31); Bilirubin Total 0.5 mg/dL (0.0-1.0); Blood Urea Nitrogen 11 mg/dL (9-16); Calcium 9.2 mg/dL (8.4-10.2); Carbon Dioxide 31 mmol/L (22-29); Chloride 102 mmol/L (96-108); Cholesterol 152 mg/dL (<200); Estimated Glomerular Filt Rate > 60; Glucose Fasting 86 mg/dL (60-99); HDL Cholesterol 36 mg/dL (>40); LDL Cholesterol Calculated 93 mg/dL (<100); Potassium 4.1 mmol/L (3.3-5.1); Sodium 140 mmol/L (135-145); Total Protein 6.6 g/dL (6.5-8.0); Triglycerides 115 mg/dL (<150)
[2023-04-07 12:37] LABS: Free T4 (Free Thyroxine) 1.24 ng/dL (0.71-1.85); Thyroid Stimulating Hormone 1.47 uIU/mL (0.32-4.0); Vitamin D 25-OH Total 38.4 ng/mL (>30)
[2023-04-07 13:53] LABS: Appearance Urine Clear; Color Urine Yellow; Glucose Urine UA Negative (Negative); Leukocyte Esterase Urine Negative (Negative); Nitrite Urine Negative (Negative); Urine Blood Negative (Negative); Urine Ketones Negative (Negative); Urine Protein Trace mg/dL (Neg-Trace)
== END 2023-04-07 08:50 | disposition home or self-care (01) ==
LOC: HO.HMGCLDS 08:49
PROVIDERS: PCP Internal Medicine; Visit Provider Internal Medicine
DX: Z00.00 Encounter for general adult medical examination without abnormal findings (principal); E03.9 Hypothyroidism, unspecified; E55.9 Vitamin D deficiency, unspecified; I10 Essential (primary) hypertension; R30.0 Dysuria; E78.00 Pure hypercholesterolemia, unspecified
CPT/HCPCS: 36415; 80053; 80061; 81003; 82306; 84439; 84443; 85025

== ENCOUNTER 2023-04-11 16:45 | Outpatient (AMB) | payer OTHER, SELFPAY ==
--- NOTE | 2023-04-11 16:45 | MHC.PC.OV ---
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: No Accompanied by: Self / Same As Patient Allergies No Known Allergies Allergy (Verified 04/11/23 19:13) Medication List - Last Reconciled 04/11/23 by Sascha Arboleda MD calcium carbonate (Calcium) 600 mg PO DAILY cholecalciferol (vitamin D3) (Kids First Vitamin D3) 25 mcg PO DAILY cranberry fruit concentrate (Azo Cranberry) 250 mg PO DAILY cyclobenzaprine 10 mg PO BEDTIME PRN 30 days diazepam (Valium) take 1/2 to 1 tablet by mouth twice a day as needed 30 days ferrous sulfate 325 mg PO DAILY 90 days ibuprofen 600 mg PO Q8H PRN Levoxyl (levothyroxine) 25 mcg PO DAILY 90 days NS Levoxyl (levothyroxine) 200 mcg PO DAILY 90 days NS lisinopril 20 mg PO DAILY 90 days loratadine 10 mg PO DAILY PRN 90 days magnesium 200 mg PO DAILY multivitamin,zo-nihv-ajechctb (Complete Multivitamin tablet) 1 tab PO DAILY oxycodone-acetaminophen 5-325 mg (Percocet) 1 tab PO Q6H PRN 30 days prednisone 40 mg (2 x 20 mg) PO DAILY Tobacco use date assessed: 04/11/23 Dental Screening Dental Screen Date: 04/11/23 Did you have a dental visit in the last 12 months?: No Did you have a dental problem in the last 6 months where you did not have access to dental care?: No Was dental information given to patient?: Patient has dentist HPI Physical Exam HPI Details Patient comes in today for her annual physical examination States that she has been experiencing frequent multiple joint pains for the past few months now and more recently, has been experiencing increased pain over her right shoulder area since last week Does not recall any recent injury or trauma to her shoulder Adds that she was recently seen by Dr. Brito for her eye exam and was advised that she has some hypertensive retinopathy changes in her right eye and that she should check back with her PCP about controlling her blood pressure better and checking her out further for any collagen vascular disease and hyperviscosity syndrome Patient denies any headaches or dizziness Denies any chest pains, no shortness of breath No nausea /vomiting, no abdominal pain No change in bowel habits noted She denies any acute urinary symptoms Needs a few of her Rx refilled, including her pain medication Had her follow-up labs done a few days ago - to discuss her results She no longer has to keep up with her annual pap smear and gynecologic exam as she had a complete hysterectomy and bilateral salpingo-oophorectomy done last year on 08/03/2022 She had her last colonoscopy done back in 11/2020 and was recommended to get a repeat colonoscopy in 1 year due to poor prep but she has not had it redone yet She is scheduled for her annual mammogram tomorrow [facility] Medical History (Updated 04/12/23 @ 04:15 by Sascha Arboleda MD) Anxiety Allergic rhinitis Lumbar degenerative disc disease Vitamin D deficiency GERD without esophagitis Morbid obesity with BMI of 50.0-59.9, adult Benign essential hypertension Post-surgical hypothyroidism Surgical History (Updated 04/12/23 @ 03:51 by Sascha Arboleda MD) History of robot-assisted laparoscopic hysterectomy (~08/03/22) Hx of cervical biopsy History of colonoscopy History of lobectomy of thyroid Family History Father No problems noted. Mother DMII (diabetes mellitus, type 2) Brother No problems noted. Sister No problems noted. Son No problems noted. Son No problems noted. Daughter No problems noted. Daughter No problems noted. 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 1. Little interest or pleasure in doing things: not at all 2. Feeling down, depressed, or hopeless: not at all 3. Trouble falling or staying asleep, or sleeping too much: not at all 4. Feeling tired or having little energy: not at all 5. Poor appetite or overeating: not at all 6. Feeling bad about yourself - or that you are a failure or have let yourself or your family down: not at all 7. Trouble concentrating on things, such as reading the newspaper or watching television: not at all 8. Moving or speaking so slowly that other people could have noticed. Or the opposite - being so fidgety or restless that you have been moving around a lot more than usual: not at all 9. Thoughts that you would be better off or of hurting yourself in some way: not at all Total score: 0 Depression Screening Interpretation: Negative Depression Screening Done: Yes [id number] - PHQ-9 Billing: Yes Source: Developed by Drs. Reza Cooper, Chantel Beltran, Mir Ren and colleagues, with an educational tahira from [employer] Thrive Questionnaire Date Thrive assessed: 04/11/23 I am a: Patient What is your living situation today?: I have a steady place to live Within the past 12 months, did the food you bought not last and you didn't have the money to get more?: Never true Within the past 12 months, did you worry whether your food would run out before you got money to buy more?: Never true Do you have trouble paying for medicines?: No Do you have trouble getting transportation to medical appointments?: No Do you have trouble paying your heating and electricity bill?: No Do you have trouble taking care of your child, family member or friend?: No Do you have trouble with day-to-day activities such as bathing, preparing meals, shopping, managing finances, etc.?: No Are you currently unemployed and looking for a job?: No Are you interested in more education?: No Please select the resources that you would like help with: None Currently or been in a relationship where the following occur: no concerns reported THRIVE Score: 0 AUDIT C Alcohol Use Questionnaire (AUDIT-C) 1. How often do you have a drink containing alcohol?: 2-3 times a week 2. How many drinks containing alcohol do you have on a typical day when you are drinking?: 1 or 2 Total Score: 3 Score Reviewed/Action Taken: Yes JUAN JOSÉ-7 AMB Questionnaire JUAN JOSÉ-7 Date JUAN JOSÉ - 7 assessed: 04/11/23 Feeling nervous, anxious, or on edge: 0 = Not at all Not being able to stop or control worryin = Not at all Worrying too much about different things: 0 = Not at all Trouble relaxin = Not at all Being so restless that it is hard to sit still: 0 = Not at all Becoming easily annoyed or irritable: 0 = Not at all Feeling afraid as if something awful might happen: 0 = Not at all Total JUAN JOSÉ-7 score (0-4 normal; 5-9 mild; 10-14 moderate; 15-21 severe): 0 Source: Developed by Drs. Reza Cooper, Chantel Beltran, Mir Ren and colleagues, with an educational tahira from [employer] Review of Systems Const Denies chills, Denies fatigue, Denies fever(s), Denies headache(s) and Denies malaise Eyes Denies blurry vision, Denies change in vision, Denies irritation and Denies itchy eyes ENT Denies dysphagia, Denies dizziness, Denies otalgia, Denies headache(s), Denies nasal congestion, Denies neck pain, Denies odynophagia, Denies sinus pain and Denies sore throat Card Denies chest pain, Denies rapid heart rate, Denies irregular heart rhythm, Denies palpitations and Denies dyspnea Resp Denies chest congestion, Denies cough, Denies dyspnea and Denies wheezing GI Denies abdominal pain, Denies bloating, Denies constipation, Denies dysphagia, Denies heartburn, Denies diarrhea, Denies nausea, Denies odynophagia and Denies vomiting Denies hematuria, Denies urinary frequency, Denies dysuria, Denies urinary incontinence and Denies urinary urgency Musc Reports back pain (over the lower back - chronic), Reports myalgias (recently), Reports arthralgias (involving multiple joints; more recently over the right shoulder area), Denies joint swelling, Denies muscle weakness and Denies neck pain Skin/Breast Denies breast pain, Denies breast mass, Denies change in pigmentation, Denies lesions, Denies rash and Denies unusual bruising Neuro Denies dizziness, Denies headache(s) and Denies paresthesias Psych Denies anxiety and Denies depression Endo Denies fatigue and Denies palpitations Victorino/Lymph Denies easy bruising Aller/Immun Denies itchy eyes and Denies wheezing Physical exam (Primary Care) Vital Signs: Last Vital Signs Pulse 87 04/11/23 16:46 BP 162/98 H 04/11/23 16:46 Pulse Ox 96 04/11/23 16:46 Oxygen Delivery Method Room Air 04/11/23 16:46 BMI result Body Mass Index 55.1 Tobacco/Smoking Status: Tobacco use Status Tobacco use date assessed 04/11/23 04/11/23 16:47 Patient Tobacco Use Status Never used Tobacco 04/11/23 16:47 e-Cigarette/Vaping Use Never Used 04/11/23 16:47 PHQ-9: PHQ-9 Score PHQ-9: Total score 0 04/12/23 03:53 Depression Screening Interpretation: Negative Thrive Assessment: Date of Thrive Assessment Date Thrive assessed 04/11/23 04/11/23 16:47 Currently or been in a relationship where the following occur: no concerns reported Const General: no acute distress, alert and awake Orientation/consciousness: patient oriented x3 HENMT Head: Yes normocephalic and Yes atraumatic Ears: external ears normal, TM's normal bilaterally and EAC's normal General nose exam: No nasal discharge present Face and sinus: Yes normal facial exam and Yes sinuses nontender Teeth and gingiva: dentition normal Throat: Yes posterior oropharynx normal and Yes tonsils normal (no TP congestion) Eyes Eyelids: Yes eyelids normal Conjunctivae: conjunctivae normal Pupils: Equal, round and reactive pupils present EOM: EOMs intact bilaterally Neck Neck: Yes no lymphadenopathy and Yes supple Thyroid: Thyroid normal Resp Auscultation: clear to auscultation bilaterally, no rales and no wheezes Cardio Rate: regular rate Rhythm: regular rhythm Heart sounds: no murmurs GI Palpation (GI): Soft to palpation, nontender and No hepatosplenomegaly present Auscultation: normal bowel sounds General: Yes no CVA tenderness Back/Spine/Pelvis Back: no CVA tenderness Thoracic/Lumbar Spine: lumbar spinal tenderness Skin Lesions: no lesions Rashes: no rashes Neuro General: patient oriented x3, moves all extremities, no focal motor deficits and CN's II-XI intact bilaterally Cranial nerves: Yes Equal, round and reactive pupils present Cognition (Neuro): normal cognition Gait exam (Neuro): Normal gait present Extrem General: Yes no clubbing, cyanosis or edema Right upper extremity: shoulder/upper arm Details: tenderness Location: of the A-C joint and normal ROM; no swelling Office Procedures Flu Questionnaire Does the patient have a severe egg allergy?: No Does the patient have severe life threatening allergies?: No Does the patient have a fever or illness today?: No Has the patient ever had Guillain-[place] Syndrome?: No Has the patient ever had any past reaction to a flu shot?: No Immunizations flu vacc [id number] 6mos up(PF) 60 mcg(15 mcgx4)/0.5 mL IM syringe Performing Provider: Sascha Arboleda MD [facility] Administered by: Karissa Badillo on 04/11/23 17:43 Dose Route Admin Location Dispensed Lot Number Expiration Date NDC Lining Stitcher 0.5 mL IM Left Deltoid 0.5 mL [id number] 09/03/23 02912-494-34 [employer] VIS Given Date VIS Provided VIS Publication Date 04/11/23 Single Vaccine 20 Eligibility Eligibility Date Funding Source Not [facility] Eligible 04/11/23 Private Results Reviewed Results Reviewed: Laboratory Tests 04/07/23 04/07/23 04/07/23 08:53 08:53 08:53 WBC Hgb Hct Plt Count Sodium 140 Potassium 4.1 Creatinine 0.73 Estimated GFR > 60 Fasting Glucose 86 Calcium 9.2 AST 20 ALT 17 Triglycerides 115 Cholesterol 152 LDL Cholesterol, Calc 93 HDL Cholesterol 36 L 25-OH Vitamin D Total 38.4 TSH 1.47 Free T4 1.24 Ur Specific Wendel Urine Protein Urine Glucose (UA) Urine Blood Urine Nitrite Ur Leukocyte Esterase 04/07/23 04/07/23 04/07/23 08:55 10:57 10:57 WBC 6.2 Hgb 15.2 Hct 47.1 H Plt Count 268 Sodium Potassium Creatinine Estimated GFR Fasting Glucose Calcium AST ALT Triglycerides Cholesterol LDL Cholesterol, Calc HDL Cholesterol 25-OH Vitamin D Total TSH Free T4 Ur Specific Wendel 1.020 Urine Protein Trace Urine Glucose (UA) Negative Urine Blood Negative Urine Nitrite Negative Ur Leukocyte Esterase Negative Assessment and Plan Assessment & Plan (1) Annual physical exam: Code(s): Z00.00 - Encounter for general adult medical examination without abnormal findings Plan: Results of her labs done a few days ago reviewed and discussed with patient She no longer has to continue with yearly gynecological exam and pap smear as she has had a complete hysterectomy with bilateral salpingo-oophorectomy done in July 2022 She is scheduled for her annual mammogram tomorrow here at [facility] [place] [facility] She had her colonoscopy last done in 2020 and was supposed to get a repeat colonoscopy in 1 year due to poor prep but she has not been able to do so yet (2) Benign essential hypertension: Code(s): I10 - Essential (primary) hypertension Plan: Reinforced low-sodium diet -? goal is systolic BP of at least 120 to 130 mm Will increase her Lisinopril from 10 mg to 20 mg QD Patient is reminded to continue monitoring her blood pressure closely (3) Hypertensive retinopathy of right eye: Code(s): H35.031 - Hypertensive retinopathy, right eye Plan: Patient sees Dr. Brito for her ophthalmologic issues and should continue to follow up with Dr. Brito as scheduled It is emphasized that with her hypertensive retinopathy, it becomes more urgent now that she should get her BP under better control SINAN - her Lisinopril dosage will be increased today She will also be sent for some additional labs SINAN for further evaluation, including evaluating her for any potential collagen vascular disease and hyperviscosity syndrome She does have some proteinuria on her recent urinalysis but does not appear to have an elevated albumin-globulin gap and her serum protein levels and CBC appear normal so monoclonal gammopathies are less likely in her case (4) Post-surgical hypothyroidism: Comment: S/P left thyroid lobectomy / completion of 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 Blandon; had right hemithyroidectomy in 2012 Code(s): E89.0 - Postprocedural hypothyroidism Plan: Continue Levoxyl 225 mcg QD Patient' hypothyroidism was being managed by Dr. Narayanan (endocrinology) previously but as she has been clinically euthyroid and stable for a while now, was advised at her appointment with him last year that she can just follow up with her PCP and return to endocrinology only when needed Will recheck her TFTs and labs in a few months for follow up (5) Bilateral primary osteoarthritis of knee: Code(s): M17.0 - Bilateral primary osteoarthritis of knee Plan: Follow up with orthopedics as scheduled (6) Lumbar degenerative disc disease: Code(s): M51.36 - Other intervertebral disc degeneration, lumbar region Plan: Reinforced activity and weight-lifting restrictions Continue Oxycodone-Acetaminophen 5-325 mg every 6 hours as needed (Rx refilled) and Cyclobenzaprine 10 mg TID PRN (7) Right shoulder pain: Code(s): M25.511 - Pain in right shoulder Qualifiers: Chronicity: unspecified Qualified Code(s): M25.511 - Pain in right shoulder Plan: Will send patient for x-rays of the right shoulder SINAN for further evaluation (8) GERD without esophagitis: Code(s): K21.9 - Gastro-esophageal reflux disease without esophagitis Plan: Dietary restrictions reinforced Continue Omeprazole 20 mg QD PRN (9) Vitamin D deficiency: Code(s): E55.9 - Vitamin D deficiency, unspecified Plan: Corrected - continue Vitamin D3 1000 units QD (10) Anemia: Code(s): D64.9 - Anemia, unspecified Qualifiers: Anemia type: iron deficiency Iron deficiency anemia type: chronic blood loss Qualified Code(s): D50.0 - Iron deficiency anemia secondary to blood loss (chronic) Plan: Corrected, with her H/H most recently at 15.2/47.1 Continue Ferrous Sulfate 325 mg QD - Rx refilled Will continue to monitor patient's CBC regularly (11) Allergic rhinitis: Code(s): J30.9 - Allergic rhinitis, unspecified Qualifiers: Allergic rhinitis seasonality: seasonal Allergic rhinitis trigger: pollen Qualified Code(s): J30.1 - Allergic rhinitis due to pollen Plan: Continue Loratadine 10 mg QD PRN (12) Anxiety: Code(s): F41.9 - Anxiety disorder, unspecified Plan: Continue Diazepam 10 mg 1/2 to 1 tablet BID PRN (13) Morbid obesity with BMI of 50.0-59.9, adult: Code(s): E66.01 - Morbid (severe) obesity due to excess calories; Z68.43 - Body mass index [BMI] 50.0-59.9, adult Plan: Reinforced diet/exercise as tolerated/lose weight - she has been able to lose over 10 pounds since her last visit with me last summer (14) Colon cancer screening: Code(s): Z12.11 - Encounter for screening for malignant neoplasm of colon Plan: Will refer her back to GI for repeat colonoscopy - was due back in 2021 Plan Follow up in 3 months Orders: Orders Erythrocyte Sedimentation Rate 04/11/23 M25.50 - Pain in unspecified joint, M79.7 - Fibromyalgia Cyclic Citrullinated Peptide 04/11/23 M25.50 - Pain in unspecified joint Rheumatoid Factor 04/11/23 M25.50 - Pain in unspecified joint Lyme IgG/IgM w/reflex to WB 04/11/23 M25.50 - Pain in unspecified joint C Reactive Protein 04/11/23 M25.50 - Pain in unspecified joint Hepatitis C Antibody 04/11/23 M25.50 - Pain in unspecified joint XR shoulder RT min 2V 04/11/23 M25.511 - Pain in right shoulder Prothrombin Time INR 04/11/23 D75.9 - Disease of blood and blood-forming organs, unspecified, H35.031 - Hypertensive retinopathy, right eye SABA Reflex Titer and Pattern 04/11/23 M25.50 - Pain in unspecified joint Influenza [id number] Immunization 04/11/23 Z23 - Encounter for immunization Partial Thromboplastin Time 04/11/23 D75.9 - Disease of blood and blood-forming organs, unspecified, H35.031 - Hypertensive retinopathy, right eye Referrals Gastroenterology Referral Z12.11 - Encounter for screening for malignant neoplasm of colon Medications: Changed From lisinopril 10 mg PO DAILY 90 tabs 3RF I10 - Essential (primary) hypertension To lisinopril 20 mg PO DAILY 90 days 90 tabs 3RF I10 - Essential (primary) hypertension From ferrous sulfate 325 mg PO DAILY 30 tabs 2RF To ferrous sulfate 325 mg PO DAILY 90 days 90 tabs 1RF From loratadine 10 mg PO DAILY 30 tabs 4RF To loratadine 10 mg PO DAILY 90 days PRN 90 tabs 3RF allergy symptoms Refilled oxycodone-acetaminophen 5-325 mg (Percocet) 1 tab PO Q6H 30 days PRN 120 tabs 0RF pain Coding Level of Care Code Est Pt Prev Care 40-64y(23830) Diagnoses Annual physical exam Z00.00 Benign essential hypertension I10 Hypertensive retinopathy of right eye H35.031 Post-surgical hypothyroidism E89.0 Bilateral primary osteoarthritis of knee M17.0 Lumbar degenerative disc disease M51.36 Right shoulder pain, unspecified chronicity M25.511 Chronicity: unspecified GERD without esophagitis K21.9 Vitamin D deficiency E55.9 Iron deficiency anemia due to chronic blood loss D50.0 Anemia type: iron deficiency Iron deficiency anemia type: chronic blood loss Seasonal allergic rhinitis due to pollen J30.1 Allergic rhinitis seasonality: seasonal Allergic rhinitis trigger: pollen Anxiety F41.9 Morbid obesity with BMI of 50.0-59.9, adult E66.01; Z68.43 Colon cancer screening Z12.11
[2023-04-11 16:46] VITALS: BP 162/98; PULSE 87; O2SAT 96; BMI 55.1
== END 2023-04-11 17:45 | disposition home or self-care (01) ==
PROVIDERS: PCP Internal Medicine; Visit Provider Internal Medicine
DX: Z23 Encounter for immunization (principal)
CPT/HCPCS: 90471; 90686; 99396

== ENCOUNTER 2023-04-12 07:52 | Outpatient (REF) | payer OTHER, SELFPAY | END 2023-04-12 07:53 | disposition home or self-care (01) | LOC: HO.MAMMO 07:52 | PROVIDERS: PCP Internal Medicine; Visit Provider Internal Medicine | DX: Z12.31 Encounter for screening mammogram for malignant neoplasm of breast (principal) | CPT/HCPCS: 77063; 77067 ==

== ENCOUNTER → 2023-04-12 08:00 | Outpatient (BNV) | payer OTHER, SELFPAY | PROVIDERS: PCP Internal Medicine; Visit Provider Radiology Diagnostic Radiology | DX: Z12.31 Encounter for screening mammogram for malignant neoplasm of breast (principal) | CPT/HCPCS: 77063; 77067 ==

== ENCOUNTER 2023-04-13 08:14 | Outpatient (REF) | payer OTHER, SELFPAY ==
--- NOTE | ~2023-04-13 | XR_ITS ---
EXAMINATION: XR SHOULDER, RIGHT CLINICAL INFORMATION: Pain COMPARISON: None available. TECHNIQUE: AP external rotation, Grashey, scapular Y, and axillary views of the right shoulder. FINDINGS: Bone alignment is normal. No fracture or dislocation. The glenohumeral joint is normal. There is arthritis at the acromioclavicular joint. Soft tissues are normal. XR/XR shoulder RT min 2V IMPRESSION: Arthritis at the acromioclavicular joint.
[2023-04-13 11:52] LABS: Prothrombin Time 12.1 SEC (11.1-13.3)
[2023-04-13 11:55] LABS: Partial Thromboplastin Time 34.4 SEC (26.0-36.8)
[2023-04-13 12:04] LABS: C Reactive Protein 0.91 mg/dL (< or = 0.50)
[2023-04-13 12:11] LABS: Rheumatoid Factor < 13.0 IU/mL (<15.0)
[2023-04-13 12:28] LABS: ~HepC Num1 0.23 S/CO (0.00-0.79); ~Hepatitis C Antibody Nonreactive (Nonreactive)
[2023-04-13 12:38] LABS: Erythrocyte Sedimentation Rate 7 MM/HR (0-20)
[2023-04-14 14:53] LABS: Lyme Abs Screen <0.90 index
[2023-04-17 18:08] LABS: Cyclic Citrullinated Peptide <16 UNITS
[2023-04-18 13:29] LABS: Anti Nuclear Antibody Screen NEGATIVE (NEGATIVE)
== END 2023-04-13 08:15 | disposition home or self-care (01) ==
LOC: HO.HMGCX 08:14
PROVIDERS: PCP Internal Medicine; Visit Provider Internal Medicine
DX: M25.511 Pain in right shoulder (principal); M79.7 Fibromyalgia; H35.031 Hypertensive retinopathy, right eye; D75.9 Disease of blood and blood-forming organs, unspecified
CPT/HCPCS: 36415; 73030; 85610; 85652; 85730; 86038; 86140; 86200; 86431; 86617; 86618; 86803

== ENCOUNTER 2024-01-10 14:49 | Outpatient (AMB) | payer OTHER, SELFPAY ==
[2024-01-10 14:50] VITALS: BP 110/80; PULSE 109; O2SAT 95; BMI 55.0
--- NOTE | 2024-01-10 14:50 | MHC.PC.OV ---
Vital Signs 01/10/24 14:50 Height 5 ft 6 in Weight 341 lb BMI 55.0 BP 110/80 Blood Pressure Location Lt brachial Position Sitting Pulse 109 H Pulse Source Pulse Oximeter Pulse Oximetry (%) 95 Oxygen Delivery Method Room Air Intake Visit Reasons: 6MoF/U Head Of Mathematics Required: No Accompanied by: Self / Same As Patient Allergies No Known Allergies Allergy (Verified 01/10/24 15:16) Medication List - Last Reconciled 01/10/24 by Sascha Arboleda MD calcium carbonate (Calcium 600) 600 mg PO DAILY cholecalciferol (vitamin D3) (Kids First Vitamin D3) 25 mcg PO DAILY cranberry fruit concentrate (Azo Cranberry) 250 mg PO DAILY cyclobenzaprine 10 mg PO BEDTIME PRN 30 days diazepam (Valium) take 1/2 to 1 tablet by mouth twice a day as needed 30 days ferrous sulfate 325 mg PO DAILY 90 days ibuprofen 600 mg PO Q8H PRN Levoxyl (levothyroxine) 200 mcg PO DAILY 90 days NS Levoxyl (levothyroxine) 25 mcg PO DAILY 90 days NS lisinopril 20 mg PO DAILY 90 days loratadine 10 mg PO DAILY PRN 90 days magnesium 200 mg PO DAILY multivitamin,[id number] (Complete Multivitamin tablet) 1 tab PO DAILY oxycodone-acetaminophen 5-325 mg (Percocet) 1 tab PO Q6H PRN 30 days Tobacco use date assessed: 01/10/24 Dental Screening Dental Screen Date: 01/10/24 Did you have a dental visit in the last 12 months?: Yes Did you have a dental problem in the last 6 months where you did not have access to dental care?: No Was dental information given to patient?: Patient has dentist HPI 6MoF/U HPI Details Patient comes in today for her follow-up visit States that she feels okay and that her chronic low back pain and joint pains remain adequately controlled on her current medications She denies any headaches or dizziness Denies any chest pains, no shortness of breath No nausea/vomiting, no abdominal pain No change in bowel habits noted [facility] Medical History (Updated 01/14/24 @ 18:02 by Sascha Arboleda MD) Primary osteoarthritis, right shoulder Anxiety Allergic rhinitis Lumbar degenerative disc disease Vitamin D deficiency GERD without esophagitis Morbid obesity with BMI of 50.0-59.9, adult Benign essential hypertension Post-surgical hypothyroidism Surgical History History of robot-assisted laparoscopic hysterectomy (~08/03/22) Hx of cervical biopsy History of colonoscopy History of lobectomy of thyroid Family History Father No problems noted. Mother DMII (diabetes mellitus, type 2) Brother No problems noted. Sister No problems noted. Son No problems noted. Son No problems noted. Daughter No problems noted. Daughter No problems noted. 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 1. Little interest or pleasure in doing things: not at all 2. Feeling down, depressed, or hopeless: not at all 3. Trouble falling or staying asleep, or sleeping too much: not at all 4. Feeling tired or having little energy: not at all 5. Poor appetite or overeating: not at all 6. Feeling bad about yourself - or that you are a failure or have let yourself or your family down: not at all 7. Trouble concentrating on things, such as reading the newspaper or watching television: not at all 8. Moving or speaking so slowly that other people could have noticed. Or the opposite - being so fidgety or restless that you have been moving around a lot more than usual: not at all 9. Thoughts that you would be better off or of hurting yourself in some way: not at all Total score: 0 Depression Screening Interpretation: Negative Depression Screening Done: Yes 07181 - PHQ-9 Billing: Yes Source: Developed by Drs. Reza Cooper, Chantel Beltran, Mir Ren and colleagues, with an educational tahira from [employer]. Thrive Questionnaire Date Thrive assessed: 01/10/24 I am a: Patient What is your living situation today?: I have a steady place to live Within the past 12 months, did the food you bought not last and you didn't have the money to get more?: Never true Within the past 12 months, did you worry whether your food would run out before you got money to buy more?: Never true Do you have trouble paying for medicines?: No Do you have trouble getting transportation to medical appointments?: No Do you have trouble paying your heating and electricity bill?: No Do you have trouble taking care of your child, family member or friend?: No Do you have trouble with day-to-day activities such as bathing, preparing meals, shopping, managing finances, etc.?: No Are you currently unemployed and looking for a job?: No Are you interested in more education?: No Please select the resources that you would like help with: None Currently or been in a relationship where the following occur: No concerns reported THRIVE Score: 0 AUDIT C Alcohol Use Questionnaire (AUDIT-C) 1. How often do you have a drink containing alcohol?: 2-3 times a week 2. How many drinks containing alcohol do you have on a typical day when you are drinking?: 3 or 4 3. How often do you have six or more drinks on one occasion?: Never Total Score: 4 Score Reviewed/Action Taken: Yes JUAN JOSÉ-7 AMB Questionnaire JUAN JOSÉ-7 Date JUAN JOSÉ - 7 assessed: 01/10/24 Feeling nervous, anxious, or on edge: 0 = Not at all Not being able to stop or control worryin = Not at all Worrying too much about different things: 0 = Not at all Trouble relaxin = Not at all Being so restless that it is hard to sit still: 0 = Not at all Becoming easily annoyed or irritable: 0 = Not at all Feeling afraid as if something awful might happen: 0 = Not at all Total JUAN JOSÉ-7 score (0-4 normal; 5-9 mild; 10-14 moderate; 15-21 severe): 0 Source: Developed by Drs. Reza Cooper, Chantel Beltran, Mir Ren and colleagues, with an educational tahira from [employer]. Review of Systems Const Denies chills, Denies fatigue, Denies fever(s) and Denies headache(s) ENT Denies dysphagia, Denies dizziness, Denies otalgia, Denies headache(s), Denies neck pain, Denies odynophagia and Denies sore throat Card Denies chest pain, Denies irregular heart rhythm, Denies palpitations and Denies dyspnea Resp Denies chest congestion, Denies cough and Denies dyspnea GI Denies abdominal pain, Denies constipation, Denies dysphagia, Denies heartburn, Denies diarrhea, Denies nausea, Denies odynophagia and Denies vomiting Denies urinary frequency, Denies dysuria and Denies urinary incontinence Musc Reports back pain (over the lower back - chronic), Reports myalgias (recently), Reports arthralgias (involving multiple joints; more recently over the right shoulder area) and Denies neck pain Skin/Breast Denies rash Neuro Denies dizziness, Denies headache(s) and Denies paresthesias Psych Denies anxiety and Denies depression Endo Denies fatigue and Denies palpitations Victorino/Lymph Denies easy bruising Physical exam (Primary Care) Vital Signs: Last Vital Signs Pulse 109 H 01/10/24 14:50 BP 110/80 01/10/24 14:50 Pulse Ox 95 01/10/24 14:50 Oxygen Delivery Method Room Air 01/10/24 14:50 BMI result Body Mass Index 55.0 Tobacco/Smoking Status: Tobacco use Status Tobacco use date assessed 01/10/24 01/10/24 14:57 Patient Tobacco Use Status Never used Tobacco 01/10/24 14:57 e-Cigarette/Vaping Use Never Used 01/10/24 14:57 PHQ-9: PHQ-9 Score PHQ-9: Total score 0 01/10/24 15:17 Depression Screening Interpretation: Negative Thrive Assessment: Date of Thrive Assessment Date Thrive assessed 01/10/24 01/10/24 14:57 Currently or been in a relationship where the following occur: No concerns reported Const General: no acute distress and alert HENMT Ears: TM's normal bilaterally and EAC's normal Throat: Yes posterior oropharynx normal and Yes tonsils normal (no TP congestion) Neck Neck: Yes no lymphadenopathy and Yes supple Thyroid: Thyroid normal Resp Auscultation: clear to auscultation bilaterally, no rales and no wheezes Cardio Rate: regular rate Rhythm: regular rhythm Heart sounds: no murmurs GI Palpation (GI): Soft to palpation and nontender Auscultation: normal bowel sounds General: Yes no CVA tenderness Back/Spine/Pelvis Back: no CVA tenderness Thoracic/Lumbar Spine: lumbar spinal tenderness Skin Rashes: no rashes Extrem General: Yes no clubbing, cyanosis or edema Right upper extremity: shoulder/upper arm Details: tenderness Location: of the A-C joint and normal ROM; no swelling Office Procedures Flu Questionnaire Does the patient have a severe egg allergy?: No Does the patient have severe life threatening allergies?: No Does the patient have a fever or illness today?: No Has the patient ever had Guillain-Loyal Syndrome?: No Has the patient ever had any past reaction to a flu shot?: No Immunizations Fluarix Triv 0542-3450 (PF) 45 mcg (15 mcg x 3)/0.5 mL IM syringe Performing Provider: Sascha Arboleda MD Performing Location: [facility] [place] [place] [facility] Administered by: MORE Walker on 01/10/24 15:03 Dose Route Admin Location Dispensed Lot Number Expiration Date NDC Crane Engineer 0.5 mL IM Left Deltoid 0.5 mL [id number] 09/02/24 18919-104-43 [facility] Given Date VIS Provided VIS Publication Date 01/10/24 Single Vaccine 20 Eligibility Eligibility Date Funding Source Not [facility] Eligible 01/10/24 Private Coding Level of Care Code Est Pt Level 4 (18848) Diagnoses Benign essential hypertension I10 Hypertensive retinopathy of right eye H35.031 Post-surgical hypothyroidism E89.0 Bilateral primary osteoarthritis of knee M17.0 Degeneration of intervertebral disc of lumbar region with discogenic back pain M51.360 Disc-related pain type: discogenic back pain only Primary osteoarthritis, right shoulder M19.011 GERD without esophagitis K21.9 Vitamin D deficiency E55.9 Iron deficiency anemia due to chronic blood loss D50.0 Anemia type: iron deficiency Iron deficiency anemia type: chronic blood loss Seasonal allergic rhinitis due to pollen J30.1 Allergic rhinitis trigger: pollen Allergic rhinitis seasonality: seasonal Anxiety F41.9 Morbid obesity with BMI of 50.0-59.9, adult E66.01; Z68.43 Additional Codes PHQ-9 - 70034 - PHQ-9 Billing: Yes ([id number]) Assessment & Plan Assessment & Plan (1) Benign essential hypertension: Code(s): I10 - Essential (primary) hypertension Category: Medical Plan: Reinforced low-sodium diet -? goal is systolic BP of at least 120 to 130 mm Continue Lisinopril 20 mg QD Patient is reminded to continue monitoring her blood pressure closely (2) Hypertensive retinopathy of right eye: Code(s): H35.031 - Hypertensive retinopathy, right eye Category: Medical Plan: Follow up with ophthalmology (Dr. 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 Blandon; had right hemithyroidectomy in 2012 Code(s): E89.0 - Postprocedural hypothyroidism Category: Medical Plan: Continue Levoxyl 225 mcg QD Patient's hypothyroidism was being managed by Dr. Narayanan (endocrinology) previously but as she has been clinically euthyroid and stable for a while now, she was advised at her appointment with him last year that she can just follow up with her PCP and return to endocrinology only when needed Will recheck her TFTs and labs in a few months for follow up (4) Bilateral primary osteoarthritis of knee: Code(s): M17.0 - Bilateral primary osteoarthritis of knee Category: Medical Plan: Follow up with orthopedics as scheduled (5) Lumbar degenerative disc disease: Code(s): M51.36 - Other intervertebral disc degeneration, lumbar region Category: Medical Qualifiers: Disc-related pain type: discogenic back pain only Qualified Code(s): M51.360 - Other intervertebral disc degeneration, lumbar region with discogenic back pain only Plan: Reinforced activity and weight-lifting restrictions Continue Oxycodone-Acetaminophen 5-325 mg every 6 hours as needed (Rx refilled) and Cyclobenzaprine 10 mg TID PRN (6) Primary osteoarthritis, right shoulder: Code(s): M19.011 - Primary osteoarthritis, right shoulder Category: Medical Plan: X-rays of the right shoulder done in April 2023 revealed (+) arthritis at the acromioclavicular joint Follow up with orthopedics as scheduled (7) GERD without esophagitis: Code(s): K21.9 - Gastro-esophageal reflux disease without esophagitis Category: Medical Plan: Dietary restrictions reinforced Continue Omeprazole 20 mg QD PRN (8) Vitamin D deficiency: Code(s): E55.9 - Vitamin D deficiency, unspecified Category: Medical Plan: Continue Vitamin D3 1000 units QD (9) Anemia: Code(s): D64.9 - Anemia, unspecified Category: Medical Qualifiers: Anemia type: iron deficiency Iron deficiency anemia type: chronic blood loss Qualified Code(s): D50.0 - Iron deficiency anemia secondary to blood loss (chronic) Plan: Corrected, with her H/H most recently at 15.2/47.1 when last checked in April 2023 Continue Ferrous Sulfate 325 mg QD Will continue to monitor patient's CBC regularly (10) Allergic rhinitis: Code(s): J30.9 - Allergic rhinitis, unspecified Category: Medical Qualifiers: Allergic rhinitis trigger: pollen Allergic rhinitis seasonality: seasonal Qualified Code(s): J30.1 - Allergic rhinitis due to pollen Plan: Continue Loratadine 10 mg QD PRN (11) Anxiety: Code(s): F41.9 - Anxiety disorder, unspecified Category: Medical Plan: Continue Diazepam 10 mg 1/2 to 1 tablet BID PRN (12) Morbid obesity with BMI of 50.0-59.9, adult: Code(s): E66.01 - Morbid (severe) obesity due to excess calories; Z68.43 - Body mass index [BMI] 50.0-59.9, adult Category: Medical Plan: Reinforced diet/exercise as tolerated/lose weight Plan To return in June 2024 for her annual physical examination Orders: Orders Comprehensive [place]. Panel Fast 06/04/24 E78.00 - Pure hypercholesterolemia, unspecified, Z00.00 - Encounter for general adult medical examination without abnormal findings Lipid Panel 06/04/24 E78.00 - Pure hypercholesterolemia, unspecified, Z00.00 - Encounter for general adult medical examination without abnormal findings Hemoglobin A1c 06/04/24 E11.9 - Type 2 diabetes mellitus without complications, Z00.00 - Encounter for general adult medical examination without abnormal findings Influenza 4091-0030 Immunization 01/10/24 Z23 - Encounter for immunization Complete Blood Count Auto Diff 06/04/24 D64.9 - Anemia, unspecified, Z00.00 - Encounter for general adult medical examination without abnormal findings Free T4 (Free Thyroxine) 06/04/24 E03.9 - Hypothyroidism, unspecified, Z00.00 - Encounter for general adult medical examination without abnormal findings Thyroid Stimulating Hormone 06/04/24 E03.9 - Hypothyroidism, unspecified, Z00.00 - Encounter for general adult medical examination without abnormal findings UA CC w/rflx Micro + Cult 06/04/24 R30.0 - Dysuria, Z00.00 - Encounter for general adult medical examination without abnormal findings Vitamin D 25-OH Total 06/04/24 E55.9 - Vitamin D deficiency, unspecified, Z00.00 - Encounter for general adult medical examination without abnormal findings Vitamin B12 and Folate 06/04/24 E53.8 - Deficiency of other specified B group vitamins, Z00.00 - Encounter for general adult medical examination without abnormal findings
== END 2024-01-10 15:25 | disposition home or self-care (01) ==
LOC: HO.HMCH 14:49
PROVIDERS: PCP Internal Medicine; Visit Provider Internal Medicine
DX: I10 Essential (primary) hypertension (principal); H35.031 Hypertensive retinopathy, right eye; E89.0 Postprocedural hypothyroidism; M17.0 Bilateral primary osteoarthritis of knee; M51.360 Other intervertebral disc degeneration, lumbar region with discogenic back pain only; M19.011 Primary osteoarthritis, right shoulder; K21.9 Gastro-esophageal reflux disease without esophagitis; E55.9 Vitamin D deficiency, unspecified; D50.0 Iron deficiency anemia secondary to blood loss (chronic); J30.1 Allergic rhinitis due to pollen; E66.01 Morbid (severe) obesity due to excess calories; Z68.43 Body mass index [BMI] 50.0-59.9, adult; F41.9 Anxiety disorder, unspecified

== ENCOUNTER → 2024-01-10 14:49 | Outpatient (BNVA) | payer OTHER, SELFPAY | PROVIDERS: PCP Internal Medicine; Visit Provider Internal Medicine | DX: I10 Essential (primary) hypertension (principal); H35.031 Hypertensive retinopathy, right eye; E89.0 Postprocedural hypothyroidism; M17.0 Bilateral primary osteoarthritis of knee; Z23 Encounter for immunization; M51.360 Other intervertebral disc degeneration, lumbar region with discogenic back pain only; M19.011 Primary osteoarthritis, right shoulder; K21.9 Gastro-esophageal reflux disease without esophagitis; E55.9 Vitamin D deficiency, unspecified; D50.0 Iron deficiency anemia secondary to blood loss (chronic); J30.1 Allergic rhinitis due to pollen; F41.9 Anxiety disorder, unspecified; E66.01 Morbid (severe) obesity due to excess calories; Z68.43 Body mass index [BMI] 50.0-59.9, adult; Z79.899 Other long term (current) drug therapy | CPT/HCPCS: 90471; 90656; 96127 ==

== ENCOUNTER 2024-06-11 07:56 | Outpatient (REF) | payer OTHER, SELFPAY ==
--- OUTSIDE RECORDS SUMMARY | 2024-06-11 08:00 | XMS_ITS | Patient Health Record ---
[facility] Address [address] [place] [address] Care Team Providers Care Industrial Millwright Name Role Phone Robles ANDERSON [place] Primary Care Provider Latoya Chaney Unavailable [phone] Reason For Referral No Information Medications Medication SIG (Take, Route, Frequency, Duration) Notes Start Date End Date Status Levoxyl 225mg Active Iron 325 (65 Fe) MG 1 tablet Orally Active Multi For Her 50+ Ac tive Vitamin D 25 MCG (1000 UT) 1 tablet Orally Once a day Active Lisinopril Active Calcium 600 MG 1 tablet with meals Orally Active Cranberry Active Valium Active Magnesium Active oxyCODONE HCl Active Flexeril Active Claritin Active Social History Tobacco Use: Social History Observation Description Date Details (start date - stop date) Never Smoker NA - NA Tobacco use other than smoking: Question Answer Notes Are you an other tobacco user? No Tobacco Control (Standard) Question Answer Notes Tobacco use: Nonsmoker Additional Findings: Tobacco non-user Current no nsmoker AUDIT-C (Standard) Question Answer Notes Did you have a drink containing alcohol in the p ast year? No Points 0 Interpretation Negative Encounters Encounter Location Date Provider Diagnosis [facility] [address] [place] [address] 04/01/2024 Latoya Siddiqi Plan Of Treatment No Information Insurance Providers Payer Name Payer Address Payer Phone Subscriber Number Group Number Insured Name Patient Relationship to Insured Coverage Start Date Coverage End Date [facility] [address] [place] [id number] [phone] [id number] Camila Salazar Self - patient is the insured Medical (General) History Medical History History ICD Code Anxiety Arthritis Back,Hip,and Knee pain High Blood Pressure thyroid Chicken pox Surgical History Surgery Date(Month/Year) thyroid nodule removal 08/2022
--- OUTSIDE RECORDS SUMMARY | 2024-06-11 08:00 | XMS_ITS ---
Author Organization [facility] Address [address] [place] [address] Care Team Providers Care Firearms Sales Associate Name Role Phone Thierry Arboleda MDneth Primary Care Provider Latoya Chaney Unavailable [phone] Medications Medication SIG (Take, Route, Frequency, Duration) Notes Start Date End Date Status Iron 325 (65 Fe) MG 1 tablet Orally Active Vitamin D 25 MCG (1000 UT) 1 tablet Orally Once a day Active Lisinopril Active Calcium 600 MG 1 tablet with meals Orally Active Cranberry Active Valium Active Magnesium Active oxyCODONE HCl Active Flexeril Active Claritin Active Levoxyl 225mg Active Multi For Her 50+ Ac tive Social History Tobacco Use: Social History Observation [...] Negative Encounters Encounter Location Date Provider Diagnosis [facility] [address] [place] [address] 04/03/2024 Latoya Siddiqi Plan Of Treatment No Information Progress Notes * Disha MARTINEZOB:[birth year] (53 yo F)Acc No.[id number]:04/03/2024 Progress Notes Patient:?Camila MARTINEZ Provider:?Latoya Siddiqi DPM :1970???Age:53 Y???Sex:Female D ate:04/03/2024 Address: [address] [id number] Pcp:Sascha Arboleda MD Subjective: * Chief Complaints: * ??? * ROS:?General/Constitutional:?Nausea?denies.?Vomiting?denies.?Hunger Thirst?denies.?Loss appetite?denies.?Chills?denies.?Fatigue?denies.?Fever?denies.?Night Sweats?denies.?Unexplained weight loss?denies.?Unexplained weight gain?denies.?HEENTM:?Dentures?denies.?Dizziness?denies.?Glasses/contacts?admits.?Retinopathy?de nies.?Blurred/double vision?denies.?TMJ?denies.?Discharge/drainage?denies.?Implants?denies.?Sore throat?denies.?Dental implants?denies.?Hard of hearing ?denies.?Difficulty chewing/swallowing/speaking?denies.?Nose bleeds?denies.?Sore mouth?denies.?Respiratory:?On Oxygen?denies.?Pneumonia/pleurisy?denies.?Bronchitis?denies.?Emphysema?denies.?C oughing?denies.?Cough blood?denies.?Shortness of breath?denies.?Wheezing?denies.?Cardiovascular:?Pacemaker?denies.?MVP?denies.?WPW?denies.?CHF?denies.?Heart attack?denies.?Septal defect?denies.?Rapid beat?denies.?Chest pain ?denies.?Atrial Fib.?denies.?Murmur/Palpitations?denies.?Gastrointestinal:?Hemorrhoids?denies.?Stomach/Abdominal pain?denies.?Dark blood stool?denies.?Irritable bowel ?denies.?Constipation?denies.?Diarrhea?denies.?Hematology:?Swelling?denies.?Clots?denies.?Varicose Veins?denies.?Bruising?denies.?Bleeding problem?denies.?Genitourinary:?Blood urine?denies.?Frequent/Painfu/urination/bladder control?denies.?Kidney stones?denies.?Infection (UTI)?denies.?Nephropathy?denies.?sex trans dis (STD)?denies.?Prostate?denies.?Musculoskeletal:?Hammertoes?denies.?Bunions?denies.?Back Pain?denies.?Muscle Cramps/ Resting?denies.?Muscle cramps / walking?denies.?Generalized aches and pains?admits.?Weakness?denies.?Integ.:?Mackay?denies.?Scars?denies.?Corns/calluses?denies.?Ingrown nails?denies.?Painful nails?denies.?Open Sores?denies.?Rashes?denies.?Neurologic:?Difficulty sleeping?denies.?Brain disorder?denies.?Numbness?denies.?Balance trouble?denies.?Confusion?denies.?Fainting/blackouts?denies.?Tingling?denies.?Tr emors?denies.? * Medical History:?Anxiety, Ar thritis, Back,Hip,and Knee pain, High Blood Pressure, Thyroid, Chicken pox. * Surgical History:?thyroid no dule removal 08/2022. * Family History:?Mother: dece ased, cancer, heart attack, high blood pressure, diagnosed with Family history of arthritis.?Father: .?Maternal Grand Father: Heart Attack.? * Social History:?Tobacco Use:?Tobacco use other than smoking?Are you an other tobacco user??No ?Tobacco Control (Standard)?Tobacco use:?Nonsmoker ?Additional Findings: Tobacco non-user?Current nonsmoker ???Drugs/Alcohol:?Drugs?Have you used drugs other than those for medical reasons in the past 12 months??Yes ?Marijuana??THC Gummies ???Miscellaneous:?Caffeine: yes. ?Children: yes. ?Exercise: yes, SWIMMING. ?Marital status: . ?Occupation: [employer]. ???Drug/Alcohol:?AUDIT-C (Standard)?Did you have a drink containing alcohol in the past year??No ?Points?0 ?Interpretation?Negative * Medications:?Taking Levoxyl , Notes to Pharmacist: 225mg, Taking Multi For Her 50+ , Taking Claritin , Taking oxyCODONE HCl , Taking Flexeril , Taking Valium , Taking Magnesium , Taking Calcium 600 MG Tablet 1 tablet with meals Orally , Taking Cranberry , Taking Vitamin D 25 MCG (1000 UT) Tablet 1 tablet Orally Once a day , Taking Lisinopril , Taking Iron 325 (65 Fe) MG Tablet 1 tablet Orally Objective: * Vitals:? Assessment: Plan: * Treatment: * Images: * The named appointment provid er may or may not be the originator of this progress note, and it is not deemed complete until electronically signed by the appointment provider. Sign off status: Pending * Provider:?Latoya Siddiqi DPM Date:? Generated for Marina ambrose/Brittny/Melania on:?06/11/2024 08:00 AM EDT
--- OUTSIDE RECORDS SUMMARY | 2024-06-11 08:01 | XMS_ITS ---
Author Organization [facility] Address [address] [place] [address] Care Team Providers Care Quiller Hand Name Role Phone Robles ANDERSON, [place] Primary Care Provider Unava ilLatoya Fam Unavailable [phone] REASON FOR VISIT cx appt 04/03/24 Encounters Encounter Location Date Provider Diagnosis [facility] [address] [place] [address] 04/01/2024 Latoya Siddiqi Plan Of Treatment No Information Progress Notes * Disha MARTINEZOB:[birth year] (53 yo F)Acc No.[id number]:04/01/2024 Patient:?Camila MARTINEZ :1970???Age:53 Y???Sex:Female Address: [address] [place] [address] * true * Date:? Generated for Printi ng/Fajenniferg/eTransmitting on:?06/11/2024 08:00 AM EDT
[2024-06-11 10:01] LABS: MANUAL DIFF FLAG NO
[2024-06-11 10:05] LABS: Basophils Percent Auto 0.6 % (0-2); Eosinophils Absolute Auto 0.2 X10*3/uL (0.0-0.4); Eosinophils Percent Auto 2.6 % (0-4); Hematocrit 47.3 % (37.0-47.0); Imm Gran Abs Auto 0.05 X10*3/uL (0.00-0.03); Imm Gran Pct Auto 0.7 % (0.0-0.4); Lymphocytes Percent Auto 29.3 % (20-40); Mean Corpuscular HGB Conc 31.7 g/dl (31.0-35.0); Mean Corpuscular Hemoglobin 28.3 pg (27.0-33.0); Mean Corpuscular Volume 89.2 fL (80.0-98.0); Mean Platelet Volume 8.8 fL (9.4-12.3); Monocytes Absolute Auto 0.5 X10*3/uL (0.1-1.2); Neutrophils Absolute Auto 4.1 x10*3/uL (2.0-8.3); Neutrophils Percent Auto 59.8 % (45-73); Platelet Count 255 X10*3/uL (160-400); Red Cell Distribution Width 13.5 % (11.0-16.0); White Blood Count 6.8 X10*3/uL (4.8-10.8)
[2024-06-11 10:10] LABS: Appearance Urine Hazy; Color Urine Yellow; Glucose Urine UA Negative (Negative); Leukocyte Esterase Urine Negative (Negative); Nitrite Urine Negative (Negative); PH 6.5 (5.0-9.0); UMIC TRIGGER UACC YES; Urine Blood Small (1+) (Negative); Urine Ketones Negative (Negative); Urine Protein Negative (Neg-Trace)
[2024-06-11 10:33] LABS: Bacteria Urine 4+ (None Seen); Hyaline Casts Urine 0-2 /LPF (0-2); Squamous Epithelial Cell Urine >20 /HPF (0-2); WBC Urine 0-5 /HPF (0-5)
[2024-06-11 10:39] LABS: Alanine Aminotransferase 17 U/L (0-31); Albumin Level 3.9 g/dL (3.5-5.0); Alkaline Phosphatase 64 U/L (39-117); Anion Gap 10 (12-20); Aspartate Amino Transferase 24 U/L (5-31); Bilirubin Total 0.6 mg/dL (0.0-1.0); Blood Urea Nitrogen 16 mg/dL (9-16); Calcium 9.1 mg/dL (8.4-10.2); Carbon Dioxide 28 mmol/L (22-29); Chloride 106 mmol/L (96-108); Cholesterol 153 mg/dL (<200); Estimated Glomerular Filt Rate > 60; Glucose Fasting 89 mg/dL (60-99); HDL Cholesterol 37 mg/dL (>40); LDL Cholesterol Calculated 95 mg/dL (<100); Potassium 4.2 mmol/L (3.3-5.1); Sodium 140 mmol/L (135-145); Total Protein 6.6 g/dL (6.5-8.0); Triglycerides 108 mg/dL (<150)
[2024-06-11 10:42] LABS: Free T4 (Free Thyroxine) 1.24 ng/dL (0.71-1.85); Thyroid Stimulating Hormone 0.41 uIU/mL (0.32-4.0); Vitamin D 25-OH Total 68.3 ng/mL (>30)
[2024-06-11 10:52] LABS: Estimated Average Glucose 114 mg/dL; Hemoglobin A1C 149.6207 umol/L; Hemoglobin A1c % 5.6 % (<6.0); Total Hemoglobin (HGBA1C) 3987.5002 umol/L
[2024-06-11 11:01] LABS: Folate 13.7 ng/mL (> or = 4.0); Vitamin B12 328 pg/mL (200-900)
== END 2024-06-11 07:57 | disposition home or self-care (01) ==
LOC: HO.HMGCLDS 07:56
PROVIDERS: PCP Internal Medicine; Visit Provider Internal Medicine
DX: Z00.00 Encounter for general adult medical examination without abnormal findings (principal); E78.00 Pure hypercholesterolemia, unspecified; E03.9 Hypothyroidism, unspecified; E53.8 Deficiency of other specified B group vitamins; E11.9 Type 2 diabetes mellitus without complications; D64.9 Anemia, unspecified; E55.9 Vitamin D deficiency, unspecified
CPT/HCPCS: 36415; 80053; 80061; 81001; 82306; 82607; 82746; 83036; 84439; 84443; 85025

== ENCOUNTER 2024-06-12 10:09 | Outpatient (AMB) | payer OTHER, SELFPAY ==
--- NOTE | 2024-06-12 10:11 | MHC.PC.OV ---
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: No Accompanied by: Self / Same As Patient Allergies No Known Allergies Allergy (Verified 06/12/24 11:01) Medication List - Last Reconciled 06/12/24 by Sascha Arboleda MD calcium carbonate (Calcium 600) 600 mg PO DAILY cholecalciferol (vitamin D3) (Kids First Vitamin D3) 25 mcg PO DAILY cranberry fruit concentrate (Azo Cranberry) 250 mg PO DAILY cyclobenzaprine 10 mg PO BEDTIME PRN 30 days diazepam (Valium) take 1/2 to 1 tablet by mouth twice a day as needed 30 days ferrous sulfate 325 mg PO DAILY 90 days ibuprofen 600 mg PO Q8H PRN Levoxyl (levothyroxine) 25 mcg PO DAILY 90 days NS Levoxyl (levothyroxine) 200 mcg PO DAILY 90 days NS lisinopril 20 mg PO DAILY 90 days loratadine 10 mg PO DAILY PRN 90 days magnesium 200 mg PO DAILY multivitamin,bk-rcon-nithhpyl (Complete Multivitamin tablet) 1 tab PO DAILY oxycodone-acetaminophen 5-325 mg (Percocet) 1 tab PO Q6H PRN 30 days Tobacco use date assessed: 06/12/24 Dental Screening Dental Screen Date: 06/12/24 Did you have a dental visit in the last 12 months?: Yes Did you have a dental problem in the last 6 months where you did not have access to dental care?: No Was dental information given to patient?: Patient has dentist HPI Annual Exam HPI Details Patient comes in today for her annual physical examination States that she has been feeling very fatigued lately Thinks that she sleeps okay but has noticed that she feels very tired often when she wakes up in the morning for the past few months States that she also has a tendency to doze off often throughout the day when she is idle and that a couple of weeks ago, when she went to watch a movie with some friends, she did not even make it through the first 15 minutes of the movie before she fell asleep She denies any headaches or dizziness Denies any chest pains, no SOB No nausea/vomiting, no abdominal pain No change in bowel habits noted Denies any acute urinary symptoms States that her low back pain and joint pains remain adequately controlled on her current Rx Needs her Percocet Rx refilled today She had her follow up labs done yesterday - to discuss her results She is also wondering if she would be able to try a GLP-1 injection to help her lose some weight as she states that she has tried watching her diet for a while but was not successful in losing any significant amount of weight States that she cannot do much in terms of exercise due to her lower back and knee issues She had her screening colonoscopy done back on 11/19/2020 - she was recommended for a repeat colonoscopy in 1 year at the time due to poor prep but patient has not been able to get this repeated since She is scheduled for her annual mammogram at noon today She no longer has to keep up with her yearly pap smear and gynecology exam as she had a complete hysterectomy done a couple of years ago (2022) ON LICENSE OF [facility] Medical History (Updated 06/12/24 @ 12:00 by Sascha Arboleda MD) Primary osteoarthritis, right shoulder Anxiety Allergic rhinitis Lumbar degenerative disc disease Vitamin D deficiency GERD without esophagitis Morbid obesity with BMI of 50.0-59.9, adult Benign essential hypertension Post-surgical hypothyroidism Surgical History (Updated 06/12/24 @ 11:05 by Sascha Arboleda MD) History of robot-assisted laparoscopic hysterectomy (~08/03/22) Hx of cervical biopsy History of colonoscopy History of lobectomy of thyroid Family History Father No problems noted. Mother DMII (diabetes mellitus, type 2) Brother No problems noted. Sister No problems noted. Son No problems noted. Son No problems noted. Daughter No problems noted. Daughter No problems noted. 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 1. Little interest or pleasure in doing things: not at all 2. Feeling down, depressed, or hopeless: not at all 3. Trouble falling or staying asleep, or sleeping too much: not at all 4. Feeling tired or having little energy: more than half the days 5. Poor appetite or overeating: more than half the days 6. Feeling bad about yourself - or that you are a failure or have let yourself or your family down: not at all 7. Trouble concentrating on things, such as reading the newspaper or watching television: not at all 8. Moving or speaking so slowly that other people could have noticed. Or the opposite - being so fidgety or restless that you have been moving around a lot more than usual: not at all 9. Thoughts that you would be better off or of hurting yourself in some way: not at all Total score: 4 Depression Screening Interpretation: Positive Depression Screening Follow-up: Existing condition and In treatment Depression Screening Done: Yes 81422 - PHQ-9 Billing: Yes Source: Developed by Drs. Reza Cooper, Chantel Beltran, Mir Ren and colleagues, with an educational tahira from [employer]. Thrive Questionnaire Date Thrive assessed: 06/12/24 I am a: Patient What is your living situation today?: I have a steady place to live Within the past 12 months, did the food you bought not last and you didn't have the money to get more?: Never true Within the past 12 months, did you worry whether your food would run out before you got money to buy more?: Sometimes True Do you have trouble paying for medicines?: No Do you have trouble getting transportation to medical appointments?: No Do you have trouble paying your heating and electricity bill?: No Do you have trouble taking care of your child, family member or friend?: No Do you have trouble with day-to-day activities such as bathing, preparing meals, shopping, managing finances, etc.?: No Are you currently unemployed and looking for a job?: No Are you interested in more education?: No Please select the resources that you would like help with: None Currently or been in a relationship where the following occur: No concerns reported THRIVE Score: 1 AUDIT C Alcohol Use Questionnaire (AUDIT-C) 1. How often do you have a drink containing alcohol?: 2-3 times a week 2. How many drinks containing alcohol do you have on a typical day when you are drinking?: 1 or 2 3. How often do you have six or more drinks on one occasion?: Less than monthly Total Score: 4 Score Reviewed/Action Taken: Yes JUAN JOSÉ-7 AMB Questionnaire JUAN JOSÉ-7 Date JUAN JOSÉ - 7 assessed: 06/12/24 Feeling nervous, anxious, or on edge: 2 = More than half the days Not being able to stop or control worryin = More than half the days Worrying too much about different things: 2 = More than half the days Trouble relaxin = Not at all Being so restless that it is hard to sit still: 0 = Not at all Becoming easily annoyed or irritable: 0 = Not at all Feeling afraid as if something awful might happen: 0 = Not at all Total JUAN JOSÉ-7 score (0-4 normal; 5-9 mild; 10-14 moderate; 15-21 severe): 6 Source: Developed by Drs. Reza Cooper, Chantel Beltran, Mir Ren and colleagues, with an educational tahira from [employer]. Review of Systems Const Denies chills, Reports daytime sleepiness, Denies difficulty sleeping, Reports fatigue (increased over the past few months), Denies fever(s), Denies headache(s) and Denies malaise Eyes Denies blurry vision, Denies change in vision, Denies irritation and Denies itchy eyes ENT Denies dysphagia, Denies dizziness, Denies otalgia, Denies headache(s), Denies nasal congestion, Denies neck pain, Denies odynophagia, Denies sinus pain and Denies sore throat Card Denies chest pain, Denies rapid heart rate, Denies irregular heart rhythm, Denies palpitations and Denies dyspnea Resp Denies chest congestion, Denies cough, Denies dyspnea and Denies wheezing GI Denies abdominal pain, Denies bloating, Denies constipation, Denies dysphagia, Denies heartburn, Denies diarrhea, Denies nausea, Denies odynophagia and Denies vomiting Denies hematuria, Denies urinary frequency, Reports hot flashes (on and off), Denies dysuria, Denies urinary incontinence and Denies urinary urgency Musc Reports back pain (over the lower back - chronic), Reports arthralgias (over both knees), Denies joint swelling, Denies muscle weakness and Denies neck pain Skin/Breast Denies breast pain, Denies breast mass, Denies change in pigmentation, Denies lesions, Denies rash and Denies unusual bruising Neuro Denies dizziness, Denies headache(s) and Denies paresthesias Psych Denies anxiety and Denies depression Endo Reports fatigue (increased over the past few months) and Denies palpitations Victorino/Lymph Denies easy bruising Aller/Immun Denies itchy eyes and Denies wheezing Physical exam (Primary Care) Vital Signs: Last Vital Signs Pulse 86 06/12/24 10:12 BP 128/80 06/12/24 10:12 Pulse Ox 96 06/12/24 10:12 Oxygen Delivery Method Room Air 06/12/24 10:12 BMI result Body Mass Index 55.5 Tobacco/Smoking Status: Tobacco use Status Tobacco use date assessed 06/12/24 06/12/24 10:18 Patient Tobacco Use Status Never used Tobacco 06/12/24 10:18 e-Cigarette/Vaping Use Never Used 06/12/24 10:18 PHQ-9: PHQ-9 Score PHQ-9: Total score 4 06/12/24 10:18 Depression Screening Interpretation: Positive Depression Screening Follow-up: Existing condition and In treatment Thrive Assessment: Date of Thrive Assessment Date Thrive assessed 06/12/24 06/12/24 10:18 Currently or been in a relationship where the following occur: No concerns reported Const General: no acute distress, alert and awake Orientation/consciousness: patient oriented x3 HENMT Head: Yes normocephalic and Yes atraumatic Ears: external ears normal, TM's normal bilaterally and EAC's normal General nose exam: No nasal discharge present Face and sinus: Yes normal facial exam and Yes sinuses nontender Teeth and gingiva: dentition normal Throat: Yes posterior oropharynx normal and Yes tonsils normal (no TP congestion) Eyes Eyelids: Yes eyelids normal Conjunctivae: conjunctivae normal Pupils: Equal, round and reactive pupils present EOM: EOMs intact bilaterally Neck Neck: Yes no lymphadenopathy and Yes supple Thyroid: Thyroid normal Resp Auscultation: clear to auscultation bilaterally, no rales and no wheezes Cardio Rate: regular rate Rhythm: regular rhythm Heart sounds: no murmurs GI Palpation (GI): Soft to palpation, nontender and No hepatosplenomegaly present Auscultation: normal bowel sounds General: Yes no CVA tenderness Back/Spine/Pelvis Back: no CVA tenderness Thoracic/Lumbar Spine: lumbar spinal tenderness Skin Lesions: no lesions Rashes: no rashes Neuro General: patient oriented x3, moves all extremities, no focal motor deficits and CN's II-XI intact bilaterally Cranial nerves: Yes Equal, round and reactive pupils present Cognition (Neuro): normal cognition Gait exam (Neuro): Normal gait present Extrem General: Yes no clubbing, cyanosis or edema Right lower extremity: knee Details: tenderness; no swelling Left lower extremity: knee Details: tenderness; no swelling Results Reviewed Results Reviewed: Laboratory Tests 06/11/24 06/11/24 08:03 08:10 WBC 6.8 Hgb 15.0 Hct 47.3 H Plt Count 255 Sodium 140 Potassium 4.2 Creatinine 0.63 Estimated GFR > 60 Fasting Glucose 89 Hemoglobin A1c % 5.6 Calcium 9.1 AST 24 ALT 17 Triglycerides 108 Cholesterol 153 LDL Cholesterol, Calc 95 HDL Cholesterol 37 L Vitamin B12 328 25-OH Vitamin D Total 68.3 TSH 0.41 Free T4 1.24 Urine pH 6.5 Ur Specific Clements 1.020 Urine Protein Negative Urine Glucose (UA) Negative Urine Blood Small (1+) H Urine Nitrite Negative Ur Leukocyte Esterase Negative Coding Level of Care Code Est Pt Prev Care 40-64y(83129) Diagnoses Annual physical exam Z00.00 Benign essential hypertension I10 Hypertensive retinopathy of right eye H35.031 Post-surgical hypothyroidism E89.0 Chronic fatigue R53.82 Fatigue type: chronic, unspecified Degeneration of intervertebral disc of lumbar region with discogenic back pain M51.360 Disc-related pain type: discogenic back pain only Bilateral primary osteoarthritis of knee M17.0 Primary osteoarthritis, right shoulder M19.011 GERD without esophagitis K21.9 Vitamin D deficiency E55.9 Iron deficiency anemia due to chronic blood loss D50.0 Anemia type: iron deficiency Iron deficiency anemia type: chronic blood loss Seasonal allergic rhinitis due to pollen J30.1 Allergic rhinitis trigger: pollen Allergic rhinitis seasonality: seasonal Anxiety F41.9 Morbid obesity with BMI of 50.0-59.9, adult E66.01; Z68.43 Colon cancer screening Z12.11 Additional Codes PHQ-9 - 58725 - PHQ-9 Billing: Yes ([id number]) Assessment & Plan Assessment & Plan (1) Annual physical exam: Code(s): Z00.00 - Encounter for general adult medical examination without abnormal findings Category: Medical Plan: Results of her labs done yesterday reviewed and discussed with patient She had her screening colonoscopy done back on 11/19/2020 - she was recommended for a repeat colonoscopy in 1 year at the time due to poor prep but patient has not been able to get this repeated since She is scheduled for her annual mammogram at noon today She no longer has to keep up with her yearly pap smear and gynecology exam as she had a complete hysterectomy done a couple of years ago (2022) Discussed with patient that we will start having her go for a bone density scan for osteoporosis screening in a couple of years (2026) (2) Benign essential hypertension: Code(s): I10 - Essential (primary) hypertension Category: Medical Plan: Reinforced low-sodium diet -? goal is systolic BP of at least 120 to 130 mm Continue Lisinopril 20 mg QD Patient is reminded to continue monitoring her blood pressure regularly (3) Hypertensive retinopathy of right eye: Code(s): H35.031 - Hypertensive retinopathy, right eye Category: Medical Plan: Follow up with ophthalmology (Dr. 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 Blandon; had right hemithyroidectomy in 2012 Code(s): E89.0 - Postprocedural hypothyroidism Category: Medical Plan: Her TFTs were normal on her labs done yesterday Continue Levoxyl 225 mcg QD Patient's hypothyroidism was being managed by Dr. Narayanan (endocrinology) previously but as she has been clinically euthyroid and stable for a while now, she was advised at her appointment with him last year that she can just follow up with her PCP and return to endocrinology only when needed Will recheck her TFTs and labs in 4 months for follow up (5) Fatigue: Code(s): R53.83 - Other fatigue Category: Medical Qualifiers: Fatigue type: chronic, unspecified Qualified Code(s): R53.82 - Chronic fatigue, unspecified Plan: She reports feeling unusually tired and fatigued all day long for the past few months Has also noticed (+) tendency to fall asleep often throughout the day whenever she is idle (daytime somnolence) Will try sending her for a home sleep study to assess her for possible sleep apnea and if her test comes back positive, will refer her to Sleep Medicine for further management then (6) Lumbar degenerative disc disease: Code(s): M51.36 - Other intervertebral disc degeneration, lumbar region Category: Medical Qualifiers: Disc-related pain type: discogenic back pain only Qualified Code(s): M51.360 - Other intervertebral disc degeneration, lumbar region with discogenic back pain only Plan: Reinforced activity and weight-lifting restrictions to minimize aggravating her low back pain Continue Oxycodone-Acetaminophen 5-325 mg every 6 hours as needed (Rx refilled) and Cyclobenzaprine 10 mg TID PRN (7) Bilateral primary osteoarthritis of knee: Code(s): M17.0 - Bilateral primary osteoarthritis of knee Category: Medical Plan: Follow up with orthopedics as scheduled (8) Primary osteoarthritis, right shoulder: Code(s): M19.011 - Primary osteoarthritis, right shoulder Category: Medical Plan: X-rays of the right shoulder done in [facility] 2023 revealed (+) arthritis at the acromioclavicular joint Follow up with orthopedics as scheduled (9) GERD without esophagitis: Code(s): K21.9 - Gastro-esophageal reflux disease without esophagitis Category: Medical Plan: Dietary restrictions reinforced Continue Omeprazole 20 mg QD PRN (10) Vitamin D deficiency: Code(s): E55.9 - Vitamin D deficiency, unspecified Category: Medical Plan: Continue Vitamin D3 1000 units QD (11) Anemia: Code(s): D64.9 - Anemia, unspecified Category: Medical Qualifiers: Anemia type: iron deficiency Iron deficiency anemia type: chronic blood loss Qualified Code(s): D50.0 - Iron deficiency anemia secondary to blood loss (chronic) Plan: Corrected - her H/H was normal at 15.0/47.3 on her labs done yesterday Continue Ferrous Sulfate 325 mg QD Will continue to monitor patient's CBC regularly (12) Allergic rhinitis: Code(s): J30.9 - Allergic rhinitis, unspecified Category: Medical Qualifiers: Allergic rhinitis trigger: pollen Allergic rhinitis seasonality: seasonal Qualified Code(s): J30.1 - Allergic rhinitis due to pollen Plan: Continue Loratadine 10 mg QD PRN (13) Anxiety: Code(s): F41.9 - Anxiety disorder, unspecified Category: Medical Plan: Continue Diazepam 10 mg 1/2 to 1 tablet BID PRN (14) Morbid obesity with BMI of 50.0-59.9, adult: Code(s): E66.01 - Morbid (severe) obesity due to excess calories; Z68.43 - Body mass index [BMI] 50.0-59.9, adult Category: Medical Plan: Reinforced diet/exercise as tolerated/lose weight Per request, will try starting patient on Zepbound 2.5 mg SQ once a week to help patient lose weight (15) Colon cancer screening: Code(s): Z12.11 - Encounter for screening for malignant neoplasm of colon Category: Medical Plan: Will refer her back to GI for repeat colonoscopy (she was due for repeat colonoscopy in 11/2021) Plan Follow up in 4 months Orders: Orders RT home sleep study Today G47.33 - Obstructive sleep apnea (adult) (pediatric), R40.0 - Somnolence, R53.83 - Other fatigue Complete Blood Count Auto Diff 4 Months D64.9 - Anemia, unspecified Lipid Panel 4 Months E78.00 - Pure hypercholesterolemia, unspecified Comprehensive Nye. Panel Fast 4 Months E78.00 - Pure hypercholesterolemia, unspecified Free T4 (Free Thyroxine) 4 Months E03.9 - Hypothyroidism, unspecified Thyroid Stimulating Hormone 4 Months E03.9 - Hypothyroidism, unspecified UA CC w/rflx Micro + Cult 4 Months R30.0 - Dysuria Vitamin D 25-OH Total 4 Months E55.9 - Vitamin D deficiency, unspecified Referrals Gastroenterology Referral Z12.11 - Encounter for screening for malignant neoplasm of colon Medications: New tirzepatide (weight loss) (Zepbound) for 4 weeks 2.5 mg (0.5 mL) subcut QWEEK 4 weeks 2 mL 0RF E66.01 - Morbid (severe) obesity due to excess calories, Z68.43 - Body mass index [BMI] 50.0-59.9, adult Refilled oxycodone-acetaminophen 5-325 mg (Percocet) 1 tab PO Q6H 30 days PRN 120 tabs 0RF pain
[2024-06-12 10:12] VITALS: BP 128/80; PULSE 86; O2SAT 96; BMI 55.5
--- OUTSIDE RECORDS SUMMARY | 2024-06-12 11:26 | XMS_ITS | Patient Health Record ---
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 Name Role Phone Robles ANDERSON [place] Primary Care Provider Latoya Chaney Unavailable [phone] Reason For Referral No Information Medications Medication [...] Negative Encounters Encounter Location Date Provider Diagnosis [facility] [address] [place] [address] 04/01/2024 Latoya Siddiqi Plan Of Treatment No Information Insurance Providers Payer Name Payer Address Payer Phone Subscriber Number Group Number Insured Name Patient Relationship to Insured Coverage Start Date Coverage End Date [facility] [address] [facility] [place] [address] [id number] Camila Salazar Self - patient is the insured Medical (General) History Medical History History ICD Code Anxiety Arthritis Back,Hip,and Knee pain High Blood Pressure thyroid Chicken pox Surgical History Surgery Date(Month/Year) thyroid nodule removal 08/2022
--- OUTSIDE RECORDS SUMMARY | 2024-06-12 11:26 | XMS_ITS ---
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 Generated for Printi ng/Fajenniferg/eTransmitting on:?06/12/2024 11:25 AM EDT
--- OUTSIDE RECORDS SUMMARY | 2024-06-12 11:26 | XMS_ITS ---
Author Organization [facility] Address [address] [place] [address] Care Team Providers Care Language Path Name Role Phone Thierry Arboleda MDneth Primary Care Provider Latoya Chaney Unavailable [phone] Medications Medication SIG (Take, Route, Frequency, Duration) [...] Encounters Encounter Location Date Provider Diagnosis [facility] [address] [place] [address] 04/03/2024 Latoya Siddiqi Plan Of Treatment No Information Progress Notes * Disha MARTINEZOB:[birth year] (53 yo F)Acc No.[id number]:04/03/2024 Progress Notes Patient:?Camila MARTINEZ Provider:?Latoya Siddiqi DPM :1970???Age:53 Y???Sex:Female D ate:04/03/2024 Address: [address] [id number] Pcp:Sascha Arboleda MD Subjective: * Chief Complaints: [...] ?Exercise: yes, SWIMMING. ?Marital status: . ?Occupation: [employer]. ???Drug/Alcohol:?AUDIT-C (Standard)?Did you have a drink containing [...] Siddiqi DPM Date:? Generated for Marina ambrose/Brittny/Melania on:?06/12/2024 11:25 AM EDT
== END 2024-06-12 11:27 | disposition home or self-care (01) ==
LOC: HO.HMCH 10:10
PROVIDERS: PCP Internal Medicine; Visit Provider Internal Medicine
DX: Z00.00 Encounter for general adult medical examination without abnormal findings (principal); Z68.43 Body mass index [BMI] 50.0-59.9, adult; E66.01 Morbid (severe) obesity due to excess calories; I10 Essential (primary) hypertension; H35.031 Hypertensive retinopathy, right eye; E89.0 Postprocedural hypothyroidism; R53.82 Chronic fatigue, unspecified; M51.360 Other intervertebral disc degeneration, lumbar region with discogenic back pain only; M17.0 Bilateral primary osteoarthritis of knee; M19.011 Primary osteoarthritis, right shoulder; K21.9 Gastro-esophageal reflux disease without esophagitis; D50.0 Iron deficiency anemia secondary to blood loss (chronic)

== ENCOUNTER 2024-06-12 11:31 | Outpatient (REF) | payer OTHER, SELFPAY | END 2024-06-12 11:32 | disposition home or self-care (01) | LOC: HO.MAMMO 11:31 | PROVIDERS: PCP Internal Medicine; Visit Provider Internal Medicine | DX: Z12.31 Encounter for screening mammogram for malignant neoplasm of breast (principal) | CPT/HCPCS: 77063; 77067; 96127 ==

== ENCOUNTER → 2024-06-12 12:00 | Outpatient (BNV) | payer OTHER, SELFPAY | PROVIDERS: PCP Internal Medicine; Visit Provider Internal Medicine | DX: Z12.31 Encounter for screening mammogram for malignant neoplasm of breast (principal) | CPT/HCPCS: 77063; 77067 ==

== ENCOUNTER 2024-07-11 10:36 | Outpatient (AMB) | payer OTHER, SELFPAY ==
--- NOTE | 2024-07-11 11:31 | AM.OFFWIN_ITS ---
Intake Vital Signs 3 07/11/24 11:35 Weight 355 lb BP 140/82 H Blood Pressure Location Lt brachial Position Sitting Pulse 62 Pulse Source Pulse Oximeter Pulse Oximetry (%) 97 Oxygen Delivery Method Room Air Intake Visit Reasons: EP knee scrape from snorkeling, lt abd side pain Intake Note: Patient here for scrape on knee. she states her legs are always a bit swollen but they are more swollen today. Patient Tobacco Use Status: Never used Tobacco Allergies No Known Allergies Allergy (Verified 07/11/24 12:09) Medication List - Last Reconciled 07/11/24 by KRISTI Loera- calcium carbonate (Calcium 600) 600 mg PO DAILY cholecalciferol (vitamin D3) (Kids First Vitamin D3) 25 mcg PO DAILY cranberry fruit concentrate (Azo Cranberry) 250 mg PO DAILY cyclobenzaprine 10 mg PO BEDTIME PRN 30 days diazepam (Valium) take 1/2 to 1 tablet by mouth twice a day as needed 30 days ferrous sulfate 325 mg PO DAILY 90 days ibuprofen 600 mg PO Q8H PRN Levoxyl (levothyroxine) 25 mcg PO DAILY 90 days NS Levoxyl (levothyroxine) 200 mcg PO DAILY 90 days NS lisinopril 20 mg PO DAILY 90 days loratadine 10 mg PO DAILY PRN 90 days magnesium 200 mg PO DAILY multivitamin,fp-krks-dbplwcrg (Complete Multivitamin tablet) 1 tab PO DAILY oxycodone-acetaminophen 5-325 mg (Percocet) 1 tab PO Q6H PRN 30 days tirzepatide (weight loss) (Zepbound) 2.5 mg (0.5 mL) subcut QWEEK 4 weeks Do you need a note to return to daycare/school/sports/work: No HPI HPI Comments 2 History of Present Illness0 Details - The patient is a 53-year-old female pr esenting with a scrape on the L knee, possibly infected. - The scrape was sustained during a abundio tion without trauma or falls - She self-treated using bacitracin afte r cleaning the affected area but did not treat the wound today post-shower. - Chronic lower extremity swelling has b een ongoing. - No blood clots have been historically diagnosed Also c/o pain in left upper quad, more her lateral aspect. Took Percocet last night to help w/ relief normal elimination, no fever, n/v, chest pain Tdap 2018 Physical Exam General: Well developed, well nourished, in no acute distress. Appears stated age. Lungs: Clear to auscultation bilaterally. No rales, rhonchi or wheeze noted. Good air flow in all ambriz. Heart: Regular rate and rhythm. No murmurs, click, rubs or gallops are noted. Abd obese, nontender Reproducible pain over left lateral aspect of trunk, consistent with muscular pain Skin L knee - see below; no cellulitis. Due to body habitus, palpation of pulses is dificult, be that as it may, skin is pink Discussion Notes We reviewed the plan to treat the current injury with triple antibiotic ointment applied three times daily, allowing it to remain clean and exposed to air when possible. I assured the patient that the inflammation observed is likely a normal response to the injury, though if redness expands or pain intensifies, further evaluation may be necessary. An tcgi-cap-doadaqs topical lidocaine for the intermittent muscle pain was recommended, alongside heating pads to alleviate discomfort. I addressed her concerns about lower extremity swelling, likely post-traumatic or related to travel, and advised re-evaluation if symptoms persist. Return precautions were discussed, particularly noting if infection worsens or if pain management is ineffective. The patient's prior tetanus vaccination was confirmed, negating need for immediate renewal. Assessment and Plan 1. Knee Injury with Suspected Infection recommending standard triple antibiotic application and assessment for evolving symptoms if needed. 2 Possible Muscle Strain Addressed with topical analgesics and application of heat; advisement against heavy lifting or strain without easing. Patient Instructions - Clean the knee scrape and apply triple antibiotic ointment three times a day. - Leave the wound open to air when possi ble. - Watch for increased redness, swelling, or discomfort and return if symptoms worsen. - Use heating pads and topical lidocaine for muscle pain. - Continue to monitor leg swelling; seek care if it increases significantly. - Return for evaluation if no improvemen t or if condition worsens. Consent Patient was informed and verbally consented to the use of an ambient scribe for clinic note documentation during this visit. Left knee [facility] Medical History (Updated 07/11/24 @ 13:30 by Jolene Nunes, KRISTI-CLARA) Allergic rhinitis Anxiety Benign essential hypertension GERD without esophagitis Lumbar degenerative disc disease Morbid obesity with BMI of 50.0-59.9, adult Post-surgical hypothyroidism Primary osteoarthritis, right shoulder Vitamin D deficiency Surgical History (Updated 06/12/24 @ 11:05 by Sascha Arboleda MD) History of colonoscopy History of lobectomy of thyroid History of robot-assisted laparoscopic hysterectomy (~08/03/22) Hx of cervical biopsy Family History Father No problems noted. Mother DMII (diabetes mellitus, type 2) Brother No problems noted. Sister No problems noted. Son No problems noted. Son No problems noted. Daughter No problems noted. Daughter No problems noted. 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 Sexual orientation: Straight/Heterosexual Gender identity: Female Cognitive needs: No Hearing needs: No Vision needs: Yes (glasses) Female Reproductive History Menstrual Age of Menarche: 10 Physical Exam Vital Signs: Last Vital Signs Pulse 62 07/11/24 11:35 BP 140/82 H 07/11/24 11:35 Pulse Ox 97 07/11/24 11:35 Oxygen Delivery Method Room Air 07/11/24 11:35 Assessment & Plan Assessment & Plan (1) Skin tear of left lower leg without complication: Code(s): S81.812A - Laceration without foreign body, left lower leg, initial encounter Qualifiers: Encounter type: initial encounter Qualified Code(s): S81.812A - Laceration without foreign body, left lower leg, initial encounter (2) Muscular abdominal pain in left upper quadrant: Code(s): M79.18 - Myalgia, other site Plan . Coding Level of Care Code Est Pt Level 3 (71661) Diagnoses Skin tear of left lower leg without complication, initial encounter S81.812A Encounter type: initial encounter Muscular abdominal pain in left upper quadrant M79.18
[2024-07-11 11:35] VITALS: BP 140/82; PULSE 62; O2SAT 97
--- OUTSIDE RECORDS SUMMARY | 2024-07-11 11:58 | XMS_ITS ---
Author Organization [facility] Address [address] [place] [address] Care Team Providers Care Flight Purser Name Role Phone Robles ANDERSON, [place] Primary Care Provider Unava ilLatoya Fam Unavailable [phone] REASON FOR VISIT cx appt 04/03/24 Encounters Encounter Location Date Provider Diagnosis [facility] [address] [place] [address] 04/01/2024 Latoya Siddiqi Plan Of Treatment No Information Progress Notes * Disha MARTINEZOB:[birth year] (53 yo F)Acc No.[id number]:04/01/2024 Patient:?Camila MARTINEZ :1970???Age:53 Y???Sex:Female Address: [address] [place] [address] * true * Date:? Generated for Printi ng/Fajenniferg/eTransmitting on:?07/11/2024 11:58 AM EDT
--- OUTSIDE RECORDS SUMMARY | 2024-07-11 11:58 | XMS_ITS ---
Author Organization [facility] Address [address] [place] [address] Care Team Providers Care Staffing Analyst Name Role Phone Thierry Arboleda MDneth Primary Care Provider Latoya Chaney Unavailable [phone] Medications Medication SIG (Take, Route, Frequency, Duration) [...] Negative Encounters Encounter Location Date Provider Diagnosis [facility] [address] [place] [address] 04/03/2024 Latoya Siddiqi Plan Of Treatment No Information Progress Notes * Disha MARTINEZOB:[birth year] (53 yo F)Acc No.[id number]:04/03/2024 Progress Notes Patient:?Camila MARTINEZ Provider:?Latoya Siddiqi DPM :1970???Age:53 Y???Sex:Female D ate:04/03/2024 Address: [address] [place] Pcp:Sascha Arboleda MD Subjective: * Chief Complaints: [...] ?Exercise: yes, SWIMMING. ?Marital status: . ?Occupation: [employer]. ???Drug/Alcohol:?AUDIT-C (Standard)?Did you have a drink containing [...] Siddiqi DPM Date:? Generated for Marina ambrose/Brittny/Melania on:?07/11/2024 11:57 AM EDT
--- OUTSIDE RECORDS SUMMARY | 2024-07-11 11:58 | XMS_ITS | Patient Health Record ---
[facility] [place] Address [address] [place] [address] Care Team Providers Care Senior Scientist Name Role Phone Robles ANDERSON [place] Primary Care Provider Latoya Chaney Unavailable [phone] Reason For Referral No Information Medications Medication [...] Negative Encounters Encounter Location Date Provider Diagnosis [facility] [address] [place] [address] 04/01/2024 Latoya Siddiqi Plan Of Treatment No Information Insurance Providers Payer Name Payer Address Payer Phone Subscriber Number Group Number Insured Name Patient Relationship to Insured Coverage Start Date Coverage End Date [facility] [address] [facility] [place] [address] [phone] [id number] Camila Salazar Self - patient is the insured Medical (General) History Medical History History ICD Code Anxiety Arthritis Back,Hip,and Knee pain High Blood Pressure thyroid Chicken pox Surgical History Surgery Date(Month/Year) thyroid nodule removal 08/2022
== END 2024-07-11 12:18 | disposition home or self-care (01) ==
PROVIDERS: PCP Internal Medicine; Visit Provider Nurse Practitioner Family
DX: S81.812A Laceration without foreign body, left lower leg, initial encounter (principal); M79.18 Myalgia, other site

== ENCOUNTER → 2024-07-11 10:36 | Outpatient (BNVA) | payer OTHER, SELFPAY | PROVIDERS: PCP Internal Medicine; Visit Provider Nurse Practitioner Family | DX: Z13.89 Encounter for screening for other disorder (principal) ==

== ENCOUNTER 2024-07-18 13:02 | Outpatient (REF) | payer OTHER, SELFPAY ==
--- NOTE | ~2024-07-18 | MM_ITS ---
EXAMINATION: MM DIAGNOSTIC DIGITAL BREAST TOMOSYNTHESIS, RIGHT Limited right breast ultrasound. CLINICAL INFORMATION: Call back from screening for focal asymmetry with distortion in the upper central right breast and prominent axillary lymph nodes. COMPARISON: Mammography: [facility] on PACS. TECHNIQUE: Digital breast tomosynthesis is performed in both the craniocaudal and mediolateral oblique views along with computer-aided detection (CAD). Synthesized 2D images are generated from the tomosynthesis. FINDINGS: There are scattered areas of fibroglandular density (ACR BI-RADS breast composition Category b). Focal asymmetry in the upper central right breast posterior depth persists with associated architectural distortion on additional imaging projections. No suspicious calcifications or other abnormal findings. Targeted color Doppler ultrasound scanning in the right axilla demonstrates normal appearing axillary lymph nodes. Targeted color Doppler ultrasound scanning in the upper central breast from 10-2 o'clock demonstrates normal fibronodular breast tissue. MM/MM tomosynthesis added views R IMPRESSION: 1. Focal asymmetry in the upper central breast with associated architectural distortion without definite sonographic correlate. Recommend stereotactic core needle biopsy for confirmation. The findings and recommendations were discussed with the patient the procedure will be scheduled. 2. Normal axillary lymph nodes. ASSESSMENT: BI-RADS BI-RADS 4 - Suspicious finding RECOMMENDATION: Biopsy recommended Results were provided to the patient at time of visit by the technologist. This patient's information was entered into a reminder system with a target due date for their next mammogram. Electronically signed by: Frances Castillo DO 07/18/2024 02:26 PM EDT
--- OUTSIDE RECORDS SUMMARY | 2024-07-18 13:36 | XMS_ITS ---
Author Organization [facility] Address [address] [place] [address] Care Team Providers Care Chief Nursing Executive Name Role Phone Thierry Arboleda MDneth Primary Care Provider Latoya Chaney Unavailable [phone] Medications Medication SIG (Take, Route, Frequency, Duration) [...] Negative Encounters Encounter Location Date Provider Diagnosis [facility] [address] [place] [address] 04/03/2024 Latoya Siddiqi Plan Of Treatment No Information Progress Notes * Disha MARTINEZOB:[birth year] (53 yo F)Acc No.[id number]:04/03/2024 Progress Notes Patient:?Camila MARTINEZ Provider:?Latoya Siddiqi DPM :1970???Age:53 Y???Sex:Female D ate:04/03/2024 Address: [address] [place] Pcp:Sascha Arboleda MD Subjective: * Chief Complaints: [...] ?Exercise: yes, SWIMMING. ?Marital status: . ?Occupation: [employer]. ???Drug/Alcohol:?AUDIT-C (Standard)?Did you have a drink containing [...] Siddiqi DPM Date:? Generated for Marina ambrose/Brittny/Melania on:?07/18/2024 01:36 PM EDT
--- OUTSIDE RECORDS SUMMARY | 2024-07-18 13:36 | XMS_ITS | Patient Health Record ---
Author Organization [facility] [place] Address [address] [place] [address] Care Team Providers Care Movie Shot Cameraman Name Role Phone Robles ANDERSON [place] Primary Care Provider Latoya Chaney Unavailable [phone] Reason For Referral No Information Medications Medication [...] Negative Encounters Encounter Location Date Provider Diagnosis [facility] [address] [place] [address] 04/01/2024 Latoya Siddiqi Plan Of Treatment No Information Insurance Providers Payer Name Payer Address Payer Phone Subscriber Number Group Number Insured Name Patient Relationship to Insured Coverage Start Date Coverage End Date [facility] [address] [place] [address] [phone] [id number] Camila Salazar Self - patient is the insured Medical (General) History Medical History History ICD Code Anxiety Arthritis Back,Hip,and Knee pain High Blood Pressure thyroid Chicken pox Surgical History Surgery Date(Month/Year) thyroid nodule removal 08/2022
--- OUTSIDE RECORDS SUMMARY | 2024-07-18 13:37 | XMS_ITS ---
Author Organization [facility] Address [address] [place] [address] Care Team Providers Care Ship Steward Name Role Phone Robles ANDERSON, [place] Primary Care Provider Unava ilLatoya Fam Unavailable [phone] REASON FOR VISIT cx appt 04/03/24 Encounters Encounter Location Date Provider Diagnosis [facility] [address] [place] [address] 04/01/2024 Latoya Siddiqi Plan Of Treatment No Information Progress Notes * Disha MARTINEZOB:[birth year] (53 yo F)Acc No.[id number]:04/01/2024 Patient:?Camila MARTINEZ :1970???Age:53 Y???Sex:Female Address: [address] [place] [address] * true * Date:? Generated for Printi ng/Fajenniferg/eTransmitting on:?07/18/2024 01:36 PM EDT
== END 2024-07-18 13:03 | disposition home or self-care (01) ==
LOC: HO.MAMMO 13:02
PROVIDERS: PCP Internal Medicine; Visit Provider Internal Medicine
DX: N64.89 Other specified disorders of breast (principal)
CPT/HCPCS: 76642; 77061; 77065

== ENCOUNTER → 2024-07-18 13:30 | Outpatient (BNV) | payer OTHER, SELFPAY | PROVIDERS: PCP Internal Medicine; Visit Provider Internal Medicine | DX: R92.8 Other abnormal and inconclusive findings on diagnostic imaging of breast (principal) | CPT/HCPCS: 76642; 77061; 77065 ==

== ENCOUNTER 2024-08-06 08:22 | Outpatient (AMB) | payer OTHER, SELFPAY ==
--- NOTE | 2024-08-06 08:26 | A.OFFVIS_ITS ---
Vital Signs 08/06/24 08:35 Height 5 ft 6 in Weight 348 lb BMI 56.2 BP 152/72 H Blood Pressure Location Rt brachial Position Sitting Pulse 81 Intake Visit Reasons: (R) st bx 11o'clock asymmetry Intake Note: Patient is seen in office for stereo biopsy CONSULT for right breast 11 o'clock asymmetry. Pt c/o: denies pain, itch, redness, nipple discharge on breasts. Reports maternal grandmother hx of breast CA. Paternal hx unknown. Bx sched:08/07/24 @ 9am Equipment Technician Required: No Accompanied by: Self / Same As Patient Allergies No Known Allergies Allergy (Verified 08/06/24 08:33) Medication List - Last Reconciled 08/06/24 by Amaury Black MD calcium carbonate (Calcium 600) 600 mg PO DAILY cholecalciferol (vitamin D3) (Kids First Vitamin D3) 25 mcg PO DAILY cranberry fruit concentrate (Azo Cranberry) 250 mg PO DAILY cyclobenzaprine 10 mg PO BEDTIME PRN 30 days diazepam (Valium) take 1/2 to 1 tablet by mouth twice a day as needed 30 days ferrous sulfate 325 mg PO DAILY 90 days ibuprofen 600 mg PO Q8H PRN Levoxyl (levothyroxine) 25 mcg PO DAILY 90 days NS Levoxyl (levothyroxine) 200 mcg PO DAILY 90 days NS lisinopril 20 mg PO DAILY 90 days loratadine 10 mg PO DAILY PRN 90 days magnesium 200 mg PO DAILY multivitamin,ax-odxe-cdcaxaut (Complete Multivitamin tablet) 1 tab PO DAILY oxycodone-acetaminophen 5-325 mg (Percocet) 1 tab PO Q6H PRN 30 days HPI Comments Details: 53-year-old female patient presenting with a recent screening mammogram performed on 06/12/2024 with subsequent additional images and ultrasound performed on 07/18/2024 which revealed an area of asymmetry in the right breast at the 11 o'clock position. This was felt to be suspicious for malignancy (BI-RADS 4) and stereotactic guided core biopsy recommended. No correlate was identified by ultrasound. She denies a previous history of breast problems or breast surgery. Family history is only known for her mother's side. She has a maternal grandmother diagnosed with breast cancer in her 60s. There is no family history of genetic testing. She denies any palpable breast masses, skin changes, nipple discharge or enlarged lymph nodes. She is 5 para 4. Menarche at age 10, 1st child at 18, menopause in 2019 after hysterectomy. She is scheduled for a stereotactic guided core [facility]. [facility] Medical History Abnormal mammogram of right breast Primary osteoarthritis, right shoulder Anxiety Allergic rhinitis Lumbar degenerative disc disease Vitamin D deficiency GERD without esophagitis Morbid obesity with BMI of 50.0-59.9, adult Benign essential hypertension Post-surgical hypothyroidism Surgical History History of tonsillectomy History of robot-assisted laparoscopic hysterectomy (~08/03/22) Hx of cervical biopsy History of colonoscopy History of lobectomy of thyroid Family History Father No problems noted. Mother DMII (diabetes mellitus, type 2) Brother No problems noted. Sister No problems noted. Son No problems noted. Son No problems noted. Daughter No problems noted. Daughter No problems noted. 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 Sexual orientation: Straight/Heterosexual Gender identity: Female Cognitive needs: No Hearing needs: No Vision needs: Yes (glasses) Female Reproductive History Menstrual Age of Menarche: 10 Review of Systems Const All systems reviewed & are unremarkable except as noted in HPI and below Physical Exam Const General: cooperative and no acute distress Nutritional Appearance: well nourished Orientation/consciousness: patient oriented x3 Limitations: no limitations HEENT Head: Yes normocephalic and Yes atraumatic Ears: hearing grossly normal bilaterally Chest Other: Left breast: No skin change, no nipple retraction, no nipple discharge, no palpable mass, no enlarged lymph nodes. Right breast: No skin change, no nipple retraction, no nipple discharge, no palpable mass, no enlarged lymph nodes Resp Effort & Inspection: normal respiratory effort, no audible wheezes, no cough and no respiratory distress Cardio Jugular venous distension: no JVD GI Inspection: Yes normal to inspection Skin Other: Warm, dry, no rash Neuro General: patient oriented x3 Extrem General: Yes no clubbing, cyanosis or edema Assessment & Plan Assessment & Plan (1) Abnormal mammogram of right breast: Code(s): R92.8 - Other abnormal and inconclusive findings on diagnostic imaging of breast Category: Medical Plan 53-year-old female patient presenting with a screening mammogram with subsequent follow-up images which revealed an area of architectural distortion in the right breast at the 11 o'clock position. This was felt to be suspicious for malignancy and stereotactic guided core biopsy recommended. Examination today revealed no suspicious findings in either breast. I recommended a returned to the office in approximately 1 week following the biopsy which is scheduled for 08/07/2024. She expressed understanding and agrees with the plan. Coding Level of Care Code New Pt Level 4 (68038) Diagnoses Abnormal mammogram of right breast R92.8
[2024-08-06 08:35] VITALS: BP 152/72; PULSE 81; BMI 56.2
--- OUTSIDE RECORDS SUMMARY | 2024-08-06 08:36 | XMS_ITS | Patient Health Record ---
[facility] [place] Address [address] [place] [address] Care Team Providers Care Volunteer Services Specialist Name Role Phone Robles ANDERSON [place] Primary Care Provider Latoya Chaney Unavailable [phone] Reason For Referral No Information Medications Medication [...] Negative Encounters Encounter Location Date Provider Diagnosis [facility] [address] [place] [address] 04/01/2024 Latoya Siddiqi Plan Of Treatment No Information Insurance Providers Payer Name Payer Address Payer Phone Subscriber Number Group Number Insured Name Patient Relationship to Insured Coverage Start Date Coverage End Date [facility] [address] [facility] [place] [address] [id number] Camila Salazar Self - patient is the insured Medical (General) History Medical History History ICD Code Anxiety Arthritis Back,Hip,and Knee pain High Blood Pressure thyroid Chicken pox Surgical History Surgery Date(Month/Year) thyroid nodule removal 08/2022
== END 2024-08-06 08:55 | disposition home or self-care (01) ==
LOC: HO.HGS 08:23
PROVIDERS: PCP Internal Medicine; Visit Provider Surgery
DX: R92.8 Other abnormal and inconclusive findings on diagnostic imaging of breast (principal)
CPT/HCPCS: 99204

== ENCOUNTER → 2024-08-06 08:22 | Outpatient (BNVA) | payer OTHER, SELFPAY | PROVIDERS: PCP Internal Medicine; Visit Provider Surgery ==

== ENCOUNTER 2024-08-07 08:48 | Outpatient (REF) | payer OTHER, SELFPAY ==
--- NOTE | ~2024-08-07 | MM_ITS ---
EXAMINATION: STEREOTACTICALLY-GUIDED RIGHT BREAST BIOPSY CLINICAL INFORMATION: Right focal asymmetry with architectural distortion upper central breast posterior depth. COMPARISON: Priors on PACS. INFORMED CONSENT: After the details of the procedure, as well as the risks (including, but not limited to, bleeding, hematoma formation, and infection), benefits and alternatives (including doing nothing, short-interval follow up, and surgery) to the procedure were explained to the patient in detail and all of her questions were answered, informed written consent was obtained. TECHNIQUE/FINDINGS: A timeout was performed. The lesion intended for biopsy was identified stereotactically and targeted. The skin of the right breast was then cleansed with sterile solution. Using stereotactic guidance, aseptic technique, and 1% lidocaine with and without epinephrine for local anesthesia, a total of 12 cores were obtained through the targeted area with a 9-gauge vacuum-assisted Eviva core biopsy device from a superior approach. At the completion of tissue sampling, a single top hat-shaped metallic clip was deposited at the biopsy site. Adequate sampling was achieved. The postprocedure 2-view direct digital mammogram reveals satisfactory positioning of the biopsy clip. The patient tolerated the procedure well and, after assuring adequate hemostasis, was discharged in good condition after reviewing postbiopsy breast care instructions. Final pathology results are pending. MM/MM stereotactic biopsy RT IMPRESSION: 1. Uncomplicated stereotactically-guided core biopsy of the right breast. The 2-view direct digital postprocedure mammogram reveals satisfactory positioning of the biopsy clip. 2. Final pathology results are pending. A separate report with final recommendations will be issued once these results are made available. Electronically signed by: Frances Castillo DO 08/07/2024 12:35 PM EDT
--- OUTSIDE RECORDS SUMMARY | 2024-08-07 09:03 | XMS_ITS | Patient Health Record ---
Author [facility] [place] Address [address] [place] [address] Care Team Providers Care Home Office Representative Name Role Phone Robles ANDERSON [place] Primary Care Provider Latoya Chaney Unavailable [phone] Reason For Referral No Information Medications Medication [...] Negative Encounters Encounter Location Date Provider Diagnosis [facility] [address] [place] [address] 04/01/2024 Latoya Siddiqi Plan Of Treatment No Information Insurance Providers Payer Name Payer Address Payer Phone Subscriber Number Group Number Insured Name Patient Relationship to Insured Coverage Start Date Coverage End Date [facility] [address] [place] [address] [phone] [id number] Camila Salazar Self - patient is the insured Medical (General) History Medical History History ICD Code Anxiety Arthritis Back,Hip,and Knee pain High Blood Pressure thyroid Chicken pox Surgical History Surgery Date(Month/Year) thyroid nodule removal 08/2022
[2024-08-07] MEDS: Lidocaine HCl 1%/Epi 1:100,000 10 ML VIAL 13 ML SUBCUT (09:55)
[2024-08-07] MEDS: Lidocaine HCl 1 % 20 ML VIAL 3 ML SUBCUT (09:57)
[2024-08-07] MEDS: Sodium Bicarbonate 8.4% 50 MEQ/50 ML VIAL SUBCUT (09:58)
== END 2024-08-07 08:49 | disposition home or self-care (01) ==
LOC: HO.MAMMO 08:48
PROVIDERS: PCP Internal Medicine; Visit Provider Surgery
DX: R92.8 Other abnormal and inconclusive findings on diagnostic imaging of breast (principal)
CPT/HCPCS: 19081; 88305; A4648; J2003; J2004

== ENCOUNTER → 2024-08-07 09:00 | Outpatient (BNV) | payer OTHER, SELFPAY | PROVIDERS: PCP Internal Medicine; Visit Provider Internal Medicine | DX: N64.89 Other specified disorders of breast (principal) | CPT/HCPCS: 19081; 77065 ==

== ENCOUNTER 2024-08-15 14:01 | Outpatient (AMB) | payer OTHER, SELFPAY ==
--- NOTE | 2024-08-15 14:17 | A.OFFVIS_ITS ---
Vital Signs 08/15/24 14:25 Height 5 ft 6 in Weight 351 lb 6 oz BMI 56.7 BP 149/72 H Blood Pressure Location Lt brachial Position Sitting Pulse 86 Intake Visit Reasons: (R) st bx 11o'clock asymmetry Intake Note: Patient is seen in office for stereo biopsy RESULTS for right breast. Pt c/o:admits to bruising, denies any other concerns here for results Therapeutic Recreation Assistant Required: No Accompanied by: Self / Same As Patient Allergies No Known Allergies Allergy (Verified 08/15/24 14:25) Medication List - Last Reconciled 08/15/24 by Amaury Black MD calcium carbonate (Calcium 600) 600 mg PO DAILY cholecalciferol (vitamin D3) (Kids First Vitamin D3) 25 mcg PO DAILY cranberry fruit concentrate (Azo Cranberry) 250 mg PO DAILY cyclobenzaprine 10 mg PO BEDTIME PRN 30 days diazepam (Valium) take 1/2 to 1 tablet by mouth twice a day as needed 30 days ferrous sulfate 325 mg PO DAILY 90 days ibuprofen 600 mg PO Q8H PRN Levoxyl (levothyroxine) 200 mcg PO DAILY 90 days NS Levoxyl (levothyroxine) 25 mcg PO DAILY 90 days NS lisinopril 20 mg PO DAILY 90 days loratadine 10 mg PO DAILY PRN 90 days magnesium 200 mg PO DAILY multivitamin,fy-qiwg-gwkdvsfz (Complete Multivitamin tablet) 1 tab PO DAILY oxycodone-acetaminophen 5-325 mg (Percocet) 1 tab PO Q6H PRN 30 days HPI Comments Details: 53-year-old female patient returning following a right breast stereotactic guided core biopsy performed at the [facility] on 08/07/2024. She was found to have an area of asymmetry in the right breast at the 11 o'clock position on a mammogram performed on 06/12/2024, confirmed on subsequent images and ultrasound performed on 07/18/2024. She denies a previous history of breast problems or breast surgery. Her family history is significant only for a maternal grandmother diagnosed with breast cancer in her 60s. She denied any symptoms in the breast including breast mass, skin change, nipple discharge or enlarged lymph nodes. She is , menarche at 10, 1st child at 18, menopause in 2019 after hysterectomy. She returns today for results following the stereotactic core biopsy. This revealed a right breast radial sclerosing lesion with no malignancy identified. This was felt to be a high suspicion lesion and wider excision is recommended by Radiology. She denied any problems following the procedure and generally feels well. [facility] Medical History (Updated 08/15/24 @ 14:37 by Amaury Black MD) Abnormal mammogram of right breast Primary osteoarthritis, right shoulder Anxiety Allergic rhinitis Lumbar degenerative disc disease Vitamin D deficiency GERD without esophagitis Morbid obesity with BMI of 50.0-59.9, adult Benign essential hypertension Post-surgical hypothyroidism Surgical History History of tonsillectomy History of robot-assisted laparoscopic hysterectomy (~08/03/22) Hx of cervical biopsy History of colonoscopy History of lobectomy of thyroid Family History Father No problems noted. Mother DMII (diabetes mellitus, type 2) Brother No problems noted. Sister No problems noted. Son No problems noted. Son No problems noted. Daughter No problems noted. Daughter No problems noted. 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 Sexual orientation: Straight/Heterosexual Gender identity: Female Cognitive needs: No Hearing needs: No Vision needs: Yes (glasses) Female Reproductive History Menstrual Age of Menarche: 10 Review of Systems Const All systems reviewed & are unremarkable except as noted in HPI and below Physical Exam Vital Signs: Last Vital Signs Pulse 86 08/15/24 14:25 BP 149/72 H 08/15/24 14:25 BMI result Body Mass Index 56.7 Const General: cooperative and no acute distress Nutritional Appearance: well nourished Orientation/consciousness: patient oriented x3 Limitations: no limitations HEENT Head: Yes normocephalic and Yes atraumatic Ears: hearing grossly normal bilaterally Chest Other: Left breast: No skin change, no nipple retraction, no nipple discharge, no palpable mass, no enlarged lymph nodes. Right breast: No skin change, no nipple retraction, no nipple discharge, no palpable mass, no enlarged lymph nodes Resp Effort & Inspection: normal respiratory effort, no audible wheezes, no cough and no respiratory distress Cardio Jugular venous distension: no JVD GI Inspection: Yes normal to inspection Skin Other: Warm, dry, no rash Neuro General: patient oriented x3 Extrem General: Yes no clubbing, cyanosis or edema Assessment & Plan Assessment & Plan (1) Abnormal mammogram of right breast: Comment: Radial sclerosing lesion on stereotactic biopsy Code(s): R92.8 - Other abnormal and inconclusive findings on diagnostic imaging of breast Category: Medical Plan 53-year-old female status post stereotactic guided core biopsy of the right breast found to have a radial sclerosing lesion. No malignancy was identified although the lesion is felt to be high risk for malignancy therefore wider excision is recommended. I recommended a right breast lumpectomy with localizer and after discussion of the procedure, risks, and alternatives, she consents to the surgery. Coding Level of Care Code Est Pt Level 3 (48930) Diagnoses Abnormal mammogram of right breast R92.8
[2024-08-15 14:25] VITALS: BP 149/72; PULSE 86; BMI 56.7
--- OUTSIDE RECORDS SUMMARY | 2024-08-15 16:32 | XMS_ITS | Patient Health Record ---
[facility] [place] Address [address] [place] [address] Care Team Providers Care Labor Relations Director Name Role Phone Robles ANDERSON [place] Primary Care Provider Latoya Chaney Unavailable [phone] Reason For Referral No Information Medications Medication [...] Negative Encounters Encounter Location Date Provider Diagnosis [facility] [address] [place] [address] 04/01/2024 Latoya Siddiqi Plan Of Treatment No Information Insurance Providers Payer Name Payer Address Payer Phone Subscriber Number Group Number Insured Name Patient Relationship to Insured Coverage Start Date Coverage End Date [facility] [address] [place] [address] [id number] Camila Salazar Self - patient is the insured Medical (General) History Medical History History ICD Code Anxiety Arthritis Back,Hip,and Knee pain High Blood Pressure thyroid Chicken pox Surgical History Surgery Date(Month/Year) thyroid nodule removal 08/2022
== END 2024-08-15 14:55 | disposition home or self-care (01) ==
LOC: HO.HGS 14:02
PROVIDERS: PCP Internal Medicine; Visit Provider Surgery
DX: R92.8 Other abnormal and inconclusive findings on diagnostic imaging of breast (principal)
CPT/HCPCS: 99213

== ENCOUNTER → 2024-08-15 14:01 | Outpatient (BNVA) | payer OTHER, SELFPAY | PROVIDERS: PCP Internal Medicine; Visit Provider Surgery ==

== ENCOUNTER → 2024-08-21 08:35 | Outpatient (REF) | payer OTHER, SELFPAY | LOC: HO.SL 08:35 | PROVIDERS: PCP Internal Medicine; Visit Provider Internal Medicine | DX: R53.83 Other fatigue (principal); R40.0 Somnolence; G47.33 Obstructive sleep apnea (adult) (pediatric) | CPT/HCPCS: 95806 ==

== ENCOUNTER → 2024-08-21 08:59 | Outpatient (BNV) | payer OTHER, SELFPAY | PROVIDERS: PCP Internal Medicine; Visit Provider Internal Medicine | DX: R06.83 Snoring (principal) | CPT/HCPCS: 95806 ==

== ENCOUNTER 2024-10-02 08:44 | Outpatient (REF) | payer OTHER, SELFPAY ==
--- NOTE | ~2024-10-02 | MM_ITS ---
EXAMINATION: MM MAMMOGRAM GUIDED RFID LOCALIZATION BREAST, RIGHT BREAST CLINICAL INFORMATION: Radial scar upper central breast, top hat clip for presurgical localization. COMPARISON: [facility] on PACS. TECHNIQUE NEEDLE LOC: Proper informed consent is obtained from the patient after discussion of the procedure, potential risks and complications, and alternatives including declining the procedure today. Patient was given an opportunity for questions. The patient appeared to understand. The patient consented to the procedure and signed the consent form. GUIDANCE: Digital mammography. APPROACH: Superior. TARGET: Top hat clip upper central breast. ANESTHESIA: carbonated lidocaine 1%: 10 mL. LOCALIZATION SYSTEM: Azuro LOCallizer Wire-Free Guidance System with 12g needle applicator. RADIOFREQUENCY TAG: ID # [id number] RF Tag ID confirmed with LOCalizer Guidance System prior to placement. The skin is prepped and local anesthesia administered. The needle is positioned and RFID tag deployed. Final images demonstrate the LOCalizer RF tag to reside adjacent to the clip The patient tolerated the procedure well and had no immediate complications. Dressing placed and home instructions reviewed. MM/MM RF Tag device RT IMPRESSION: -Status post right breast RFID localization. Electronically signed by: Frances Castillo DO 10/02/2024 10:17 AM EDT
--- OUTSIDE RECORDS SUMMARY | 2024-10-02 09:00 | XMS_ITS | Patient Health Record ---
[facility] [place] Address [address] [place] [address] Care Team Providers Care Gate Clerk Name Role Phone Robles ANDERSON [place] Primary Care Provider Latoya Chaney Unavailable [phone] Reason For Referral No Information Medications Medication [...] Negative Encounters Encounter Location Date Provider Diagnosis [facility] [address] [place] [address] 04/01/2024 Latoya Siddiqi Plan Of Treatment No Information Insurance Providers Payer Name Payer Address Payer Phone Subscriber Number Group Number Insured Name Patient Relationship to Insured Coverage Start Date Coverage End Date [facility] [address] [place] [address] [id number] Camila Salazar Self - patient is the insured Medical (General) History Medical History History ICD Code Anxiety Arthritis Back,Hip,and Knee pain High Blood Pressure thyroid Chicken pox Surgical History Surgery Date(Month/Year) thyroid nodule removal 08/2022
[2024-10-02] MEDS: Lidocaine HCl 1 % 20 ML VIAL 9 ML SUBCUT (09:37)
== END 2024-10-02 08:45 | disposition home or self-care (01) ==
LOC: HO.MAMMO 08:44
PROVIDERS: PCP Internal Medicine; Visit Provider Surgery
DX: R92.8 Other abnormal and inconclusive findings on diagnostic imaging of breast (principal)
CPT/HCPCS: 19281; C1819; J2003

== ENCOUNTER → 2024-10-02 09:00 | Outpatient (BNV) | payer OTHER, SELFPAY | PROVIDERS: PCP Internal Medicine; Visit Provider Internal Medicine | DX: N60.81 Other benign mammary dysplasias of right breast (principal) | CPT/HCPCS: 19281 ==

== ENCOUNTER 2024-10-14 05:41 | Day surgery (SDC) | payer OTHER, SELFPAY ==
--- OUTSIDE RECORDS SUMMARY | 2024-09-24 16:06 | XMS_ITS | Patient Health Record ---
[facility] [place] Address [address] [place] [address] Care Team Providers Care Millwright Supervisor Name Role Phone Robles ANDERSON [place] Primary Care Provider Latoya Chaney Unavailable [phone] Reason For Referral No Information Medications Medication [...] Negative Encounters Encounter Location Date Provider Diagnosis [facility] [address] [place] [address] 04/01/2024 Latoya Siddiqi Plan Of Treatment No Information Insurance Providers Payer Name Payer Address Payer Phone Subscriber Number Group Number Insured Name Patient Relationship to Insured Coverage Start Date Coverage End Date [facility] [address] [place] [address] [id number] Camila Salazar Self - patient is the insured Medical (General) History Medical History History ICD Code Anxiety Arthritis Back,Hip,and Knee pain High Blood Pressure thyroid Chicken pox Surgical History Surgery Date(Month/Year) thyroid nodule removal 08/2022
[2024-10-10 10:35] VITALS: BMI 56.7
--- NOTE | 2024-10-11 09:39 | HO.ANESPROP2 ---
Documented by User: Britany Stewart NP 10/11/24 09:42 HPI - Anesthesia Eval Consult details Narrative: 53yo F for Right Breast Lumpectomy w/LOCalizer BMI 56.7 PMFSH Active Problems Active Problems: All Active Problems Muscular abdominal pain in left upper quadrant (Acute) Skin tear of left lower leg without complication (Acute) Fatigue (Acute) Plantar wart, left foot (Acute) Anemia (Acute) Hypertensive retinopathy of right eye (Acute) Hyperviscosity (Acute) Right shoulder pain (Acute) Arthralgia (Acute) Simple endometrial hyperplasia without atypia (Acute) Heel pain (Acute) Postmenopausal bleeding (Acute) Well woman exam (Acute) Superficial bruising of lower leg (Acute) Cellulitis (Acute) Cervical cancer screening (Acute) Colon cancer screening (Acute) Annual physical exam (Acute) Bilateral primary osteoarthritis of knee (Acute) Abnormal mammogram of right breast (Acute) Primary osteoarthritis, right shoulder (Acute) Anxiety (Acute) Allergic rhinitis (Acute) Lumbar degenerative disc disease (Acute) Vitamin D deficiency (Acute) GERD without esophagitis (Acute) Morbid obesity with BMI of 50.0-59.9, adult (Acute) Benign essential hypertension (Acute) Post-surgical hypothyroidism (Acute) Past Medical History Medical History Abnormal mammogram of right breast Primary osteoarthritis, right shoulder Anxiety Allergic rhinitis Lumbar degenerative disc disease Vitamin D deficiency GERD without esophagitis Morbid obesity with BMI of 50.0-59.9, adult Benign essential hypertension Post-surgical hypothyroidism Family History Family History Father No problems noted. Mother DMII (diabetes mellitus, type 2) Brother No problems noted. Sister No problems noted. Son No problems noted. Son No problems noted. Daughter No problems noted. Daughter No problems noted. Family history of problems with anesthesia: No Surgical History Surgical History History of hysteroscopy (2021) History of tonsillectomy History of robot-assisted laparoscopic hysterectomy (~08/03/22) Hx of cervical biopsy History of colonoscopy History of lobectomy of thyroid History of Problems with Anesthesia: No Social History Social History Household Members: Spouse Household Members Other:: son Housing: Apartment Are you a primary hearing healthcare practitioner to a significant other at home: No Do you presently have visiting nurse or other home services: No Alcohol intake: current Alcohol intake frequency: holidays/special occasions only Alcohol type: wine Comment: counts correct Patient Tobacco Use Status: Never used Tobacco e-Cigarette/Vaping Use: Never Used Second Hand Smoke Exposure: No Use of substances other than those prescribed or required for medical reasons: Yes Substance Use Type: Marijuana Have you been hit, kicked, punched, or otherwise hurt by someone within the past year? 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 Sexual orientation: Straight/Heterosexual Gender identity: Female Cognitive needs: No Hearing needs: No Vision needs: Yes (glasses) Meds Allergies Allergy/AdvReac Type Severity Reaction Status Date / Time No Known Allergies Allergy Verified 08/21/24 11:26 Home Medications ?Medication ?Instructions ?Recorded ?Confirmed ?Last Taken ?Type cholecalciferol (vitamin D3) 25 25 mcg PO DAILY 12/02/19 10/14/24 10/13/24 History mcg (1,000 unit) chewable tablet (Kids First Vitamin D3) ibuprofen 600 mg tablet 600 mg PO Q8H PRN pain 12/02/19 10/14/24 10/10/24 History magnesium 200 mg tablet 200 mg PO DAILY 12/02/19 10/14/24 10/13/24 History multivitamin,vi-dwhe-zfjxhqal 1 tab PO DAILY 12/02/19 10/14/24 10/13/24 History (Complete Multivitamin tablet) calcium carbonate (Calcium 600) 600 mg PO DAILY 08/16/22 10/14/24 10/13/24 History cranberry fruit concentrate 250 mg 250 mg PO DAILY 08/16/22 10/14/24 10/13/24 History chewable tablet (Azo Cranberry) Exam Height,Weight and Vital Signs: Height 5 ft 6 in Weight 159.381 kg Pertinent Lab Results Pertinent Lab Results: Laboratory Tests 06/11/24 08:03 WBC 6.8 Hgb 15.0 Hct 47.3 H Plt Count 255 Sodium 140 Potassium 4.2 Chloride 106 Carbon Dioxide 28 BUN 16 Creatinine 0.63 Assessment and Plan Assessment Anesthesia Assessment: Chart Reviewed Final Anesthetic Review Family History of Problems with Anesthesia: No History of Problems with Anesthesia: No Documented by User: Natalya Grant MD 10/14/24 08:31 [facility] Past Medical History Medical History Abnormal mammogram of right breast Primary osteoarthritis, right shoulder Anxiety Allergic rhinitis Lumbar degenerative disc disease Vitamin D deficiency GERD without esophagitis Morbid obesity with BMI of 50.0-59.9, adult Benign essential hypertension Post-surgical hypothyroidism Family History Family History Father No problems noted. Mother DMII (diabetes mellitus, type 2) Brother No problems noted. Sister No problems noted. Son No problems noted. Son No problems noted. Daughter No problems noted. Daughter No problems noted. Surgical History Surgical History History of hysteroscopy (2021) History of tonsillectomy History of robot-assisted laparoscopic hysterectomy (~08/03/22) Hx of cervical biopsy History of colonoscopy History of lobectomy of thyroid Social History Social History Household Members: Spouse Household Members Other:: son Housing: Apartment Are you a primary hearing healthcare practitioner to a significant other at home: No Do you presently have visiting nurse or other home services: No Alcohol intake: current Alcohol intake frequency: holidays/special occasions only Alcohol type: wine Comment: counts correct Patient Tobacco Use Status: Never used Tobacco e-Cigarette/Vaping Use: Never Used Second Hand Smoke Exposure: No Use of substances other than those prescribed or required for medical reasons: Yes Substance Use Type: Marijuana Have you been hit, kicked, punched, or otherwise hurt by someone within the past year? 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 Sexual orientation: Straight/Heterosexual Gender identity: Female Cognitive needs: No Hearing needs: No Vision needs: Yes (glasses) Meds Allergies Allergy/AdvReac Type Severity Reaction Status Date / Time No Known Allergies Allergy Verified 08/21/24 11:26 Home Medications ?Medication ?Instructions ?Recorded ?Confirmed ?Last Taken ?Type cholecalciferol (vitamin D3) 25 25 mcg PO DAILY 12/02/19 10/14/24 10/13/24 History mcg (1,000 unit) chewable tablet (Kids First Vitamin D3) ibuprofen 600 mg tablet 600 mg PO Q8H PRN pain 12/02/19 10/14/24 10/10/24 History magnesium 200 mg tablet 200 mg PO DAILY 12/02/19 10/14/24 10/13/24 History multivitamin,hs-qoyk-zgjoflid 1 tab PO DAILY 12/02/19 10/14/24 10/13/24 History (Complete Multivitamin tablet) calcium carbonate (Calcium 600) 600 mg PO DAILY 08/16/22 10/14/24 10/13/24 History cranberry fruit concentrate 250 mg 250 mg PO DAILY 08/16/22 10/14/24 10/13/24 History chewable tablet (Azo Cranberry) Exam Airway Heart: rrr Lungs: cta Assessment and Plan Assessment Anesthesia Assessment: Anesthesia Plan Discussed Final Anesthetic Review NPO: Yes ASA Class: III Final Preanesthetic Review: No Changes in Pt Med Stat, Meds/Allgs Chart Reviewed, Consent Obtained/Reviewed and Anes Risks/Benef Reviewed Patient Risk: Intermediate Procedure Risk: Intermediate Anesthetic Plan Anesthetic Plan: GA and Agree w/ Assess. and Plan Disposition: Standard PACU
--- NOTE | ~2024-10-14 | MM_ITS ---
Single right breast specimen radiograph demonstrates the tag and the top clip within the specimen. Electronically signed by: Frances Castillo DO 10/14/2024 08:47 AM EDT
[2024-10-14 06:34] VITALS: BP 149/90; PULSE 79; RESP 18; TEMP 36.8; O2SAT 97
[2024-10-14] MEDS: Lactated Ringers 1,000 ML 100 ML IVCONT (06:46)
--- NOTE | 2024-10-14 07:13 | MHC.SHP ---
Pre-Procedural Eval Section A - 24 Hr Update-Section A only Date of Service: 10/14/24 Changes since office visit: Yes Patient answered all questions; No Cold of Flu in the past 2 weeks, No New Medical Problems and No Changes in Medication The patient has been examined within 24 hours of the surgical procedure. The History & Physical has been completed within 30 days and I have reviewed it.: No Section B - Complete if H&P > 30 days Chief Complaint: Other abnormal and inconclusive findings Details of Present Illness: No change in patient's symptoms. Relevant Family History (Specify if Yes): No Relevant Social History: None Present Medications: see Short Stay Collaborative assessment Medical History: No relevant PMH History of Previous Operations: No relevant previous surgery Allergies: Allergies Allergy/AdvReac Type Severity Reaction Status Date / Time No Known Allergies Allergy Verified 08/21/24 11:26 Review of Systems Sugical H&P ROS: Negative: Constitution, Cardiovascular, Respiratory, Neurological, Psychiatric, Hem-Onc, Gastrointestinal, Genitourinary, Musculoskeletal and Integumentary Exam Surgical H&P Exam: Normal: HEENT, Normal: Heart, Normal: Lungs, Normal: Extremities, Normal: Abdomen and Normal: Skin Plan Diagnosis/Plan: Unchanged I have reviewed the history and physical and performed a pertinent physical examination on my patient. No changes have occurred unless specified. Time Spent With Patient Time: Total time managing care of this patient today ____ minutes.
--- NOTE | 2024-10-14 08:41 | P.OP_ITS ---
Operative Note Operative Note Date of Service: 10/14/24 Narrative: Preoperative diagnosis: Radial sclerosing lesion right breast Postoperative diagnosis: Same Procedure: Right breast lumpectomy with localizer Surgeon: Amaury Black MD Radiology Physician: Puneet Tamayo PA-C, CELINA Dinero Anesthesia: General endotracheal Indications for procedure: 54-year-old female patient presenting with a recent core biopsy which revealed a radial sclerosing lesion. Wider excision was homer mmended to assure complete removal. Operative findings: Marking clip and localizer clip noted within the specimen. Gross pathology revealed a stellate lesion within the specimen. Specimen: Right breast lumpectomy Estimated blood loss: Less than 2 mL Complications: None Procedure details: Patient was brought to the OR and placed in a supine position. After administering general anesthesia, the patient's right breast was prepped with ChloraPrep and draped in a sterile fashion. A surgical time- out was called the consent confirmed. Patient received preoperative antibiotics and Venodyne boots were in place. Localizing device was then used to identify the area of clip placement. Local anesthesia was then infiltrated over this area and a curvilinear incision made in the upper outer quadrant with a scalpel. This was carried down into the subcutaneous tissue. Superior and inferior skin flaps were then created using electrocautery. A core tissue around the localizing clip was then obtained beginning with the medial margin, followed by the superior margin, inferior margin, lateral margin, and posterior margin. Specimen was removed and imaged in the OR. This confirmed the marking clip and localizer clip within the specimen. The specimen was then sent to pathology for gross pathology. This confirmed a stellate lesion within the specimen. Wounds were then irrigated with saline solution and suctioned dry. Wounds were checked for hemostasis. Deep breast tissue was reapproximated using interrupted 3-0 Polysorb sutures. Dermis was reapproximated using interrupted 3-0 Polysorb sutures. Skin was closed using a running subcuticular 4-0 Polysorb suture. Sterile dressings consisting of Steri-Strips, 4 x 4 gauze and Tegaderm were then applied. The patient tolerated the procedure well. Sponge, instrument, and needle counts reported as correct. The patient was transferred to PACU in stable condition.
[2024-10-14 08:55] VITALS: BP 180/63; PULSE 89; RESP 16; TEMP 36.1; O2SAT 98
[2024-10-14 09:00] VITALS: BP 159/87; PULSE 87; RESP 16; O2SAT 100
[2024-10-14 09:05] VITALS: BP 131/72; PULSE 82; RESP 18; O2SAT 99
[2024-10-14 09:10] VITALS: BP 121/70; PULSE 81; RESP 14; O2SAT 99
[2024-10-14 09:25] VITALS: BP 129/76; PULSE 84; RESP 19; TEMP 36.9; O2SAT 94
== END 2024-10-14 09:43 | disposition home or self-care (01) ==
PROVIDERS: PCP Internal Medicine; Visit Provider Surgery
PROC: (CPT 19301; principal; 2024-10-14 07:30)
DX: N64.89 Other specified disorders of breast (principal); N60.31 Fibrosclerosis of right breast; N60.21 Fibroadenosis of right breast; N60.91 Unspecified benign mammary dysplasia of right breast; L72.0 Epidermal cyst
CPT/HCPCS: 19301; 88307; 88342; J0131; J0690; J1100; J2003; J2371; J2405; J2704; J2795; J3010

== ENCOUNTER → 2024-10-14 05:41 | Outpatient (BNV) | payer OTHER, SELFPAY | PROVIDERS: PCP Internal Medicine; Visit Provider Surgery | DX: N60.81 Other benign mammary dysplasias of right breast (principal) | CPT/HCPCS: 19301 ==

== ENCOUNTER 2024-10-16 09:54 | Outpatient (AMB) | payer OTHER, SELFPAY ==
[2024-10-16 10:00] VITALS: BP 132/84; PULSE 72; O2SAT 95; BMI 55.8
--- NOTE | 2024-10-16 10:00 | MHC.PC.OV ---
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: No Accompanied by: Self / Same As Patient Allergies No Known Allergies Allergy (Verified 10/16/24 13:29) Medication List - Last Reconciled 10/16/24 by Sascha Arboleda MD calcium carbonate (Calcium 600) 600 mg PO DAILY cholecalciferol (vitamin D3) (Kids First Vitamin D3) 25 mcg PO DAILY cranberry fruit concentrate (Azo Cranberry) 250 mg PO DAILY cyclobenzaprine 10 mg PO BEDTIME PRN 30 days diazepam (Valium) take 1/2 to 1 tablet by mouth twice a day as needed 30 days ferrous sulfate 325 mg PO DAILY 90 days ibuprofen 600 mg PO Q8H PRN Levoxyl (levothyroxine) 200 mcg PO DAILY 90 days NS Levoxyl (levothyroxine) 25 mcg PO DAILY 90 days NS lisinopril 20 mg PO DAILY 90 days loratadine 10 mg PO DAILY PRN 90 days magnesium 200 mg PO DAILY multivitamin,ix-cepo-nnorervy (Complete Multivitamin tablet) 1 tab PO DAILY oxycodone-acetaminophen 5-325 mg (Percocet) 1 tab PO Q6H PRN 30 days Tobacco use date assessed: 10/16/24 Dental Screening Dental Screen Date: 10/16/24 Did you have a dental visit in the last 12 months?: Yes Did you have a dental problem in the last 6 months where you did not have access to dental care?: No Was dental information given to patient?: Patient has dentist HPI Follow Up HPI Details Patient comes in today for her follow up visit States that she just had a lumpectomy of her right breast done this past Monday (10/14/2024) and her right breast still feels sore States that she was not able to get her follow up labs done as a result Notes that she feels okay otherwise She denies any headaches or dizziness Denies any exertional chest pains, no increased SOB No nausea/vomiting, no abdominal pain No change in bowel habits noted [facility] Medical History (Updated 10/16/24 @ 13:56 by Sascha Arboleda MD) Nocturnal hypoxemia Complex sclerosing lesion of right breast Abnormal mammogram of right breast Primary osteoarthritis, right shoulder Anxiety Allergic rhinitis Lumbar degenerative disc disease Vitamin D deficiency GERD without esophagitis Morbid obesity with BMI of 50.0-59.9, adult Benign essential hypertension Post-surgical hypothyroidism Surgical History History of hysteroscopy (2021) History of tonsillectomy History of robot-assisted laparoscopic hysterectomy (~08/03/22) Hx of cervical biopsy History of colonoscopy History of lobectomy of thyroid Family History Father No problems noted. Mother DMII (diabetes mellitus, type 2) Brother No problems noted. Sister No problems noted. Son No problems noted. Son No problems noted. Daughter No problems noted. Daughter No problems noted. 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 1. Little interest or pleasure in doing things: not at all 2. Feeling down, depressed, or hopeless: not at all 3. Trouble falling or staying asleep, or sleeping too much: not at all 4. Feeling tired or having little energy: more than half the days 5. Poor appetite or overeating: more than half the days 6. Feeling bad about yourself - or that you are a failure or have let yourself or your family down: not at all 7. Trouble concentrating on things, such as reading the newspaper or watching television: not at all 8. Moving or speaking so slowly that other people could have noticed. Or the opposite - being so fidgety or restless that you have been moving around a lot more than usual: not at all 9. Thoughts that you would be better off or of hurting yourself in some way: not at all Total score: 4 Depression Screening Interpretation: Positive Depression Screening Follow-up: Existing condition and In treatment Depression Screening Done: Yes 31923 - PHQ-9 Billing: Yes Source: Developed by Drs. Reza Cooper, Chantel Beltran, Mir Ren and colleagues, with an educational tahira from [employer]. Thrive Questionnaire Date Thrive assessed: 10/16/24 I am a: Patient What is your living situation today?: I have a steady place to live Within the past 12 months, did the food you bought not last and you didn't have the money to get more?: Never true Within the past 12 months, did you worry whether your food would run out before you got money to buy more?: Sometimes True Do you have trouble paying for medicines?: No Do you have trouble getting transportation to medical appointments?: No Do you have trouble paying your heating and electricity bill?: No Do you have trouble taking care of your child, family member or friend?: No Do you have trouble with day-to-day activities such as bathing, preparing meals, shopping, managing finances, etc.?: No Are you currently unemployed and looking for a job?: No Are you interested in more education?: No Please select the resources that you would like help with: None Currently or been in a relationship where the following occur: No concerns reported THRIVE Score: 1 AUDIT C Alcohol Use Questionnaire (AUDIT-C) 1. How often do you have a drink containing alcohol?: 2-3 times a week 2. How many drinks containing alcohol do you have on a typical day when you are drinking?: 1 or 2 3. How often do you have six or more drinks on one occasion?: Less than monthly Total Score: 4 Score Reviewed/Action Taken: Yes JUAN JOSÉ-7 AMB Questionnaire JUAN JOSÉ-7 Date JUAN JOSÉ - 7 assessed: 10/16/24 Feeling nervous, anxious, or on edge: 2 = More than half the days Not being able to stop or control worryin = More than half the days Worrying too much about different things: 2 = More than half the days Trouble relaxin = Not at all Being so restless that it is hard to sit still: 0 = Not at all Becoming easily annoyed or irritable: 0 = Not at all Feeling afraid as if something awful might happen: 0 = Not at all Total JUAN JOSÉ-7 score (0-4 normal; 5-9 mild; 10-14 moderate; 15-21 severe): 6 Source: Developed by Drs. Reza Cooper, Chantel Beltran, Mir Ren and colleagues, with an educational tahira from [employer]. Review of Systems Const Denies chills, Denies difficulty sleeping, Reports fatigue, Denies fever(s) and Denies headache(s) ENT Denies dysphagia, Denies dizziness, Denies otalgia, Denies headache(s), Denies neck pain, Denies odynophagia and Denies sore throat Card Denies chest pain, Denies rapid heart rate, Denies irregular heart rhythm, Denies palpitations and Denies dyspnea Resp Denies chest congestion, Denies cough and Denies dyspnea GI Denies abdominal pain, Denies constipation, Denies dysphagia, Denies heartburn, Denies diarrhea, Denies nausea, Denies odynophagia and Denies vomiting Denies difficulty voiding, Reports hot flashes (on and off), Denies dysuria and Denies urinary urgency Musc Reports back pain (over the lower back - chronic), Reports arthralgias (over both knees) and Denies neck pain Skin/Breast Reports breast pain (right breast - due to recent lumpectomy) and Denies rash Neuro Denies dizziness, Denies headache(s) and Denies paresthesias Psych Denies anxiety and Denies depression Endo Reports fatigue and Denies palpitations Victorino/Lymph Denies easy bruising Physical exam (Primary Care) Vital Signs: Last Vital Signs Pulse 72 10/16/24 10:00 BP 132/84 10/16/24 10:00 Pulse Ox 95 10/16/24 10:00 Oxygen Delivery Method Room Air 10/16/24 10:00 BMI result Body Mass Index 55.8 Tobacco/Smoking Status: Tobacco use Status Tobacco use date assessed 10/16/24 10/16/24 10:09 Patient Tobacco Use Status Never used Tobacco 10/16/24 10:09 e-Cigarette/Vaping Use Never Used 10/16/24 10:09 PHQ-9: PHQ-9 Score PHQ-9: Total score 4 10/16/24 13:38 Depression Screening Interpretation: Positive Depression Screening Follow-up: Existing condition and In treatment Thrive Assessment: Date of Thrive Assessment Date Thrive assessed 10/16/24 10/16/24 10:09 Currently or been in a relationship where the following occur: No concerns reported Const General: no acute distress and alert HENMT Ears: TM's normal bilaterally and EAC's normal Throat: Yes posterior oropharynx normal and Yes tonsils normal (no TP congestion) Neck Neck: Yes supple and No lymphadenopathy Thyroid: Thyroid normal Chest Other: (+) mild tenderness around the surgical site on the right breast; area is covered up with bandages at present Resp Auscultation: clear to auscultation bilaterally, no rales and no wheezes Cardio Rate: regular rate Rhythm: regular rhythm Heart sounds: no murmurs GI Palpation (GI): Soft to palpation and nontender Auscultation: normal bowel sounds General: Yes no CVA tenderness Back/Spine/Pelvis Back: no CVA tenderness Thoracic/Lumbar Spine: lumbar spinal tenderness Skin Rashes: no rashes Extrem General: Yes no clubbing, cyanosis or edema Right lower extremity: knee Details: tenderness; no swelling Left lower extremity: knee Details: tenderness; no swelling Coding Level of Care Code Est Pt Level 4 (38221) Diagnoses Complex sclerosing lesion of right breast N64.89 Benign essential hypertension I10 Hypertensive retinopathy of right eye H35.031 Post-surgical hypothyroidism E89.0 Degeneration of intervertebral disc of lumbar region with discogenic back pain M51.360 Disc-related pain type: discogenic back pain only Bilateral primary osteoarthritis of knee M17.0 Primary osteoarthritis, right shoulder M19.011 GERD without esophagitis K21.9 Vitamin D deficiency E55.9 Iron deficiency anemia due to chronic blood loss D50.0 Anemia type: iron deficiency Iron deficiency anemia type: chronic blood loss Nocturnal hypoxemia G47.34 Seasonal allergic rhinitis due to pollen J30.1 Allergic rhinitis seasonality: seasonal Allergic rhinitis trigger: pollen Anxiety F41.9 Morbid obesity with BMI of 50.0-59.9, adult E66.01; Z68.43 Additional Codes PHQ-9 - 08024 - PHQ-9 Billing: Yes ([id number]) Assessment & Plan Assessment & Plan (1) Complex sclerosing lesion of right breast: Code(s): N64.89 - Other specified disorders of breast Category: Medical Plan: S/P lumpectomy a couple of days ago on 10/14/2024 - pathology of the excised lesion is still pending at this time Follow-up with breast surgery as scheduled (2) Benign essential hypertension: Code(s): I10 - Essential (primary) hypertension Category: Medical Plan: Reinforced low-sodium diet -? goal is systolic BP of at least 120 to 130 mm Her blood pressure appears much better controlled today Continue Lisinopril 20 mg QD Patient is reminded to continue monitoring her blood pressure regularly (3) Hypertensive retinopathy of right eye: Code(s): H35.031 - Hypertensive retinopathy, right eye Category: Medical Plan: Follow up with ophthalmology (Dr. 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 Blandon; had right hemithyroidectomy in 2012 Code(s): E89.0 - Postprocedural hypothyroidism Category: Medical Plan: Her TFTs were normal on her labs done previously; she was not able to get her follow-up labs done yet at this time Continue Levoxyl 225 mcg QD Patient's hypothyroidism was being managed by Dr. Narayanan (endocrinology) previously but as she has been clinically euthyroid and stable for a while now, she was advised at her appointment with him last year that she can just follow up with her PCP and return to endocrinology only when needed (5) Lumbar degenerative disc disease: Code(s): M51.36 - Other intervertebral disc degeneration, lumbar region Category: Medical Qualifiers: Disc-related pain type: discogenic back pain only Qualified Code(s): M51.360 - Other intervertebral disc degeneration, lumbar region with discogenic back pain only Plan: Reinforced activity and weight-lifting restrictions to minimize aggravating her low back pain Continue Oxycodone-Acetaminophen 5-325 mg every 6 hours as needed (Rx refilled) and Cyclobenzaprine 10 mg TID PRN (6) Bilateral primary osteoarthritis of knee: Code(s): M17.0 - Bilateral primary osteoarthritis of knee Category: Medical Plan: Follow up with orthopedics as scheduled (7) Primary osteoarthritis, right shoulder: Code(s): M19.011 - Primary osteoarthritis, right shoulder Category: Medical Plan: X-rays of the right shoulder done in [facility] 2023 revealed (+) arthritis at the acromioclavicular joint Follow up with orthopedics as scheduled (8) GERD without esophagitis: Code(s): K21.9 - Gastro-esophageal reflux disease without esophagitis Category: Medical Plan: Dietary restrictions reinforced Continue Omeprazole 20 mg QD PRN (9) Vitamin D deficiency: Code(s): E55.9 - Vitamin D deficiency, unspecified Category: Medical Plan: Continue Vitamin D3 1000 units QD (10) Anemia: Code(s): D64.9 - Anemia, unspecified Category: Medical Qualifiers: Anemia type: iron deficiency Iron deficiency anemia type: chronic blood loss Qualified Code(s): D50.0 - Iron deficiency anemia secondary to blood loss (chronic) Plan: Corrected - her H/H was normal at 15.0/47.3 on her most recent labs done a few months ago Continue Ferrous Sulfate 325 mg QD Will continue to monitor patient's CBC regularly (11) Nocturnal hypoxemia: Code(s): G47.34 - Idiopathic sleep related nonobstructive alveolar hypoventilation Category: Medical Plan: Patient is advised that her home sleep study done a couple of months ago on 08/21/2024 was negative for sleep apnea but it did show that she has nocturnal hypoxemia with O2 micheline of 81% and oxygen saturation below 88% for 29 minutes Was advised that this is likely due to obesity and sleep related hypoventilation and recommended aggressive weight reduction as well as evaluation for any underlying chronic lung or cardiac disease accounting for nocturnal hypoxemia We will consider sending her for chest x-rays and PFTs as well as echocardiogram for further evaluation later on once her current breast issues have been addressed completely (12) Allergic rhinitis: Code(s): J30.9 - Allergic rhinitis, unspecified Category: Medical Qualifiers: Allergic rhinitis seasonality: seasonal Allergic rhinitis trigger: pollen Qualified Code(s): J30.1 - Allergic rhinitis due to pollen Plan: Continue Loratadine 10 mg QD PRN (13) Anxiety: Code(s): F41.9 - Anxiety disorder, unspecified Category: Medical Plan: Continue Diazepam 10 mg 1/2 to 1 tablet BID PRN (14) Morbid obesity with BMI of 50.0-59.9, adult: Code(s): E66.01 - Morbid (severe) obesity due to excess calories; Z68.43 - Body mass index [BMI] 50.0-59.9, adult Category: Medical Plan: Reinforced diet/exercise as tolerated/lose weight Per request, we tried starting patient on Zepbound 2.5 mg SQ once a week to help patient lose weight at her last visit but this was denied by insurance She has since been referred to weight management and she is scheduled to be seen for her initial visit in December 2024 Plan Follow up in 4 months
--- OUTSIDE RECORDS SUMMARY | 2024-10-16 10:33 | XMS_ITS | Patient Health Record ---
[facility] [place] Address [address] [place] [address] Care Team Providers Care Cupola Repairer Name Role Phone Robles ANDERSON [place] Primary Care Provider Latoya Chaney Unavailable [phone] Reason For Referral No Information Medications Medication [...] Negative Encounters Encounter Location Date Provider Diagnosis [facility] [address] [place] [address] 04/01/2024 Latoya Siddiqi Plan Of Treatment No Information Insurance Providers Payer Name Payer Address Payer Phone Subscriber Number Group Number Insured Name Patient Relationship to Insured Coverage Start Date Coverage End Date [facility] [address] [facility] [place] [address] [id number] Camila Salazar Self - patient is the insured Medical (General) History Medical History History ICD Code Anxiety Arthritis Back,Hip,and Knee pain High Blood Pressure thyroid Chicken pox Surgical History Surgery Date(Month/Year) thyroid nodule removal 08/2022
== END 2024-10-16 10:48 | disposition home or self-care (01) ==
LOC: HO.HMCH 09:55
PROVIDERS: PCP Internal Medicine; Visit Provider Internal Medicine
DX: I10 Essential (primary) hypertension (principal); E66.01 Morbid (severe) obesity due to excess calories; Z68.43 Body mass index [BMI] 50.0-59.9, adult; N64.89 Other specified disorders of breast; H35.031 Hypertensive retinopathy, right eye; E89.0 Postprocedural hypothyroidism; M51.360 Other intervertebral disc degeneration, lumbar region with discogenic back pain only; M17.0 Bilateral primary osteoarthritis of knee; M19.011 Primary osteoarthritis, right shoulder; K21.9 Gastro-esophageal reflux disease without esophagitis; E55.9 Vitamin D deficiency, unspecified; D50.0 Iron deficiency anemia secondary to blood loss (chronic)

== ENCOUNTER → 2024-10-16 09:54 | Outpatient (BNVA) | payer OTHER, SELFPAY | PROVIDERS: PCP Internal Medicine; Visit Provider Internal Medicine | DX: I10 Essential (primary) hypertension (principal); N64.89 Other specified disorders of breast; H35.031 Hypertensive retinopathy, right eye; E89.0 Postprocedural hypothyroidism; M51.360 Other intervertebral disc degeneration, lumbar region with discogenic back pain only; M17.0 Bilateral primary osteoarthritis of knee; M19.011 Primary osteoarthritis, right shoulder; J21.9 Acute bronchiolitis, unspecified; E55.9 Vitamin D deficiency, unspecified; D50.0 Iron deficiency anemia secondary to blood loss (chronic); G47.34 Idiopathic sleep related nonobstructive alveolar hypoventilation; J30.1 Allergic rhinitis due to pollen; F41.9 Anxiety disorder, unspecified; E66.01 Morbid (severe) obesity due to excess calories; K21.9 Gastro-esophageal reflux disease without esophagitis; Z68.43 Body mass index [BMI] 50.0-59.9, adult | CPT/HCPCS: 96127 ==

== ENCOUNTER 2025-02-19 09:40 | Outpatient (REF) | payer OTHER, SELFPAY ==
[2025-02-19 14:28] LABS: MANUAL DIFF FLAG NO
[2025-02-19 14:29] LABS: Appearance Urine Cloudy; Glucose Urine UA Negative (Negative); PH 7.5 (5.0-9.0); Specific Gravity - Urine 1.015 (1.005-1.025)
[2025-02-19 14:36] LABS: Hematocrit 47.6 % (37.0-47.0); Hemoglobin 15.2 g/dl (12.0-16.0); Imm Gran Abs Auto 0.06 X10*3/uL (0.00-0.03); Imm Gran Pct Auto 0.9 % (0.0-0.4); Lymphocytes Absolute Auto 2.0 X10*3/uL (1.2-4.9); Mean Corpuscular HGB Conc 31.9 g/dl (31.0-35.0); Mean Corpuscular Hemoglobin 29.2 pg (27.0-33.0); Mean Corpuscular Volume 91.5 fL (80.0-98.0); NRBC Abs Auto 0.000 X10*3/uL (0.0-0.012); NRBC Pct Auto 0.0 /100WBC (0.0-0.2); Platelet Count 251 X10*3/uL (160-400); Red Blood Count 5.20 X10*6/uL (4.20-5.50); White Blood Count 6.7 X10*3/uL (4.8-10.8)
[2025-02-19 15:44] LABS: Alanine Aminotransferase 18 U/L (0-31); Albumin Level 4.0 g/dL (3.5-5.0); Alkaline Phosphatase 68 U/L (39-117); Anion Gap 11 (12-20); Aspartate Amino Transferase 23 U/L (5-31); Blood Urea Nitrogen 19 mg/dL (9-16); Calcium 9.2 mg/dL (8.4-10.2); Carbon Dioxide 32 mmol/L (22-29); Chloride 102 mmol/L (96-108); Cholesterol 156 mg/dL (<200); Estimated Glomerular Filt Rate > 60; HDL Cholesterol 40 mg/dL (>40); Potassium 4.7 mmol/L (3.3-5.1); Sodium 140 mmol/L (135-145); Total Protein 6.6 g/dL (6.5-8.0); Triglycerides 109 mg/dL (<150)
[2025-02-19 16:04] LABS: Free T4 (Free Thyroxine) 1.24 ng/dL (0.71-1.85); Thyroid Stimulating Hormone 1.25 uIU/mL (0.32-4.0)
== END 2025-02-19 09:41 | disposition home or self-care (01) ==
LOC: HO.HMGCLDS 09:40
PROVIDERS: PCP Internal Medicine; Visit Provider Internal Medicine
DX: Z23 Encounter for immunization (principal); R30.0 Dysuria; E55.9 Vitamin D deficiency, unspecified; D64.9 Anemia, unspecified; E78.00 Pure hypercholesterolemia, unspecified; I10 Essential (primary) hypertension; H35.031 Hypertensive retinopathy, right eye; E89.0 Postprocedural hypothyroidism; M51.360 Other intervertebral disc degeneration, lumbar region with discogenic back pain only; M17.0 Bilateral primary osteoarthritis of knee; M19.011 Primary osteoarthritis, right shoulder; K21.9 Gastro-esophageal reflux disease without esophagitis; D50.0 Iron deficiency anemia secondary to blood loss (chronic); N64.89 Other specified disorders of breast; G47.34 Idiopathic sleep related nonobstructive alveolar hypoventilation; J30.1 Allergic rhinitis due to pollen; F41.9 Anxiety disorder, unspecified; E66.01 Morbid (severe) obesity due to excess calories; Z68.43 Body mass index [BMI] 50.0-59.9, adult
CPT/HCPCS: 36415; 80053; 80061; 81003; 82306; 84439; 84443; 85025; 90471; 90656; 96127

== ENCOUNTER 2025-02-19 10:40 | Outpatient (AMB) | payer OTHER, SELFPAY ==
[2025-02-19 10:48] VITALS: BP 134/68; PULSE 86; RESP 16; TEMP 36.3; O2SAT 98; BMI 57.0
--- NOTE | 2025-02-19 10:48 | MHC.PC.OV ---
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 Accompanied by: Self / Same As Patient Allergies No Known Allergies Allergy (Verified 02/19/25 11:03) Medication List - Last Reconciled 02/19/25 by Sascha Arboleda MD calcium carbonate (Calcium 600) 600 mg PO DAILY cholecalciferol (vitamin D3) (Kids First Vitamin D3) 25 mcg PO DAILY cranberry fruit concentrate (Azo Cranberry) 250 mg PO DAILY cyclobenzaprine 10 mg PO BEDTIME PRN 30 days diazepam (Valium) take 1/2 to 1 tablet by mouth twice a day as needed 30 days ferrous sulfate 325 mg PO DAILY 90 days ibuprofen 600 mg PO Q8H PRN Levoxyl (levothyroxine) 200 mcg PO DAILY 90 days NS Levoxyl (levothyroxine) 25 mcg PO DAILY 90 days NS lisinopril 20 mg PO DAILY 90 days loratadine 10 mg PO DAILY PRN 90 days magnesium 200 mg PO DAILY multivitamin,gy-grdk-sooepcts (Complete Multivitamin tablet) 1 tab PO DAILY oxycodone-acetaminophen 5-325 mg (Percocet) 1 tab PO Q6H PRN 30 days Tobacco use date assessed: 02/19/25 Dental Screening Dental Screen Date: 02/19/25 Did you have a dental visit in the last 12 months?: Yes Did you have a dental problem in the last 6 months where you did not have access to dental care?: No Was dental information given to patient?: Patient has dentist HPI 4 Months HPI Details Patient comes in today for her follow up visit States that she feels okay She denies any headaches or dizziness Denies any chest pains, no increased SOB No nausea/vomiting, no abdominal pain No change in bowel habits noted States that she just got her follow up labs done before coming in for her appointment today - results are not yet available for review at this time Would also like to get her flu shot today PFSH Medical History Nocturnal hypoxemia Complex sclerosing lesion of right breast Abnormal mammogram of right breast Primary osteoarthritis, right shoulder Anxiety Allergic rhinitis Lumbar degenerative disc disease Vitamin D deficiency GERD without esophagitis Morbid obesity with BMI of 50.0-59.9, adult Benign essential hypertension Post-surgical hypothyroidism Surgical History History of hysteroscopy (2021) History of tonsillectomy History of robot-assisted laparoscopic hysterectomy (~08/03/22) Hx of cervical biopsy History of colonoscopy History of lobectomy of thyroid Family History Father No problems noted. Mother DMII (diabetes mellitus, type 2) Brother No problems noted. Sister No problems noted. Son No problems noted. Son No problems noted. Daughter No problems noted. Daughter No problems noted. 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 1. Little interest or pleasure in doing things: not at all 2. Feeling down, depressed, or hopeless: not at all 3. Trouble falling or staying asleep, or sleeping too much: not at all 4. Feeling tired or having little energy: more than half the days 5. Poor appetite or overeating: more than half the days 6. Feeling bad about yourself - or that you are a failure or have let yourself or your family down: not at all 7. Trouble concentrating on things, such as reading the newspaper or watching television: not at all 8. Moving or speaking so slowly that other people could have noticed. Or the opposite - being so fidgety or restless that you have been moving around a lot more than usual: not at all 9. Thoughts that you would be better off or of hurting yourself in some way: not at all Total score: 4 Depression Screening Interpretation: Positive Depression Screening Follow-up: Existing condition and In treatment Depression Screening Done: Yes 35396 - PHQ-9 Billing: Yes Source: Developed by Drs. Reza Cooper, Chantel Beltran, Mir Ren and colleagues, with an educational tahira from [employer]. Thrive Questionnaire Date Thrive assessed: 02/19/25 I am a: Patient What is your living situation today?: I have a steady place to live Within the past 12 months, did the food you bought not last and you didn't have the money to get more?: Never true Within the past 12 months, did you worry whether your food would run out before you got money to buy more?: Sometimes True Do you have trouble paying for medicines?: No Do you have trouble getting transportation to medical appointments?: No Do you have trouble paying your heating and electricity bill?: No Do you have trouble taking care of your child, family member or friend?: No Do you have trouble with day-to-day activities such as bathing, preparing meals, shopping, managing finances, etc.?: No Are you currently unemployed and looking for a job?: No Are you interested in more education?: No Please select the resources that you would like help with: None Currently or been in a relationship where the following occur: No concerns reported THRIVE Score: 1 AUDIT C Alcohol Use Questionnaire (AUDIT-C) 1. How often do you have a drink containing alcohol?: 2-3 times a week 2. How many drinks containing alcohol do you have on a typical day when you are drinking?: 1 or 2 3. How often do you have six or more drinks on one occasion?: Less than monthly Total Score: 4 Score Reviewed/Action Taken: Yes JUAN JOSÉ-7 AMB Questionnaire JUAN JOSÉ-7 Date JUAN JOSÉ - 7 assessed: 02/19/25 Feeling nervous, anxious, or on edge: 2 = More than half the days Not being able to stop or control worryin = More than half the days Worrying too much about different things: 2 = More than half the days Trouble relaxin = Not at all Being so restless that it is hard to sit still: 0 = Not at all Becoming easily annoyed or irritable: 0 = Not at all Feeling afraid as if something awful might happen: 0 = Not at all Total JUAN JOSÉ-7 score (0-4 normal; 5-9 mild; 10-14 moderate; 15-21 severe): 6 Source: Developed by Drs. Reza Cooper, Chantel Beltran, Mir Ren and colleagues, with an educational tahira from [employer]. Review of Systems Const Denies chills, Denies difficulty sleeping, Reports fatigue, Denies fever(s) and Denies headache(s) ENT Denies dysphagia, Denies dizziness, Denies otalgia, Denies headache(s), Denies neck pain, Denies odynophagia and Denies sore throat Card Denies chest pain, Denies rapid heart rate, Denies irregular heart rhythm, Denies palpitations and Denies dyspnea Resp Denies chest congestion, Denies cough and Denies dyspnea GI Denies abdominal pain, Denies constipation, Denies dysphagia, Denies heartburn, Denies diarrhea, Denies nausea, Denies odynophagia and Denies vomiting Denies difficulty voiding, Reports hot flashes (on and off), Denies dysuria and Denies urinary urgency Musc Reports back pain (over the lower back - chronic), Reports arthralgias (over both knees) and Denies neck pain Skin/Breast Denies rash Neuro Denies dizziness, Denies headache(s) and Denies paresthesias Psych Denies anxiety and Denies depression Endo Reports fatigue and Denies palpitations Victorino/Lymph Denies easy bruising Physical exam (Primary Care) Vital Signs: Last Vital Signs Temp 97.3 F 02/19/25 10:48 Pulse 86 02/19/25 10:48 Resp 16 02/19/25 10:48 BP 134/68 02/19/25 10:48 Pulse Ox 98 02/19/25 10:48 Oxygen Delivery Method Room Air 02/19/25 10:48 BMI result Body Mass Index 57.0 Tobacco/Smoking Status: Tobacco use Status Tobacco use date assessed 02/19/25 02/19/25 10:58 Patient Tobacco Use Status Never used Tobacco 02/19/25 10:58 e-Cigarette/Vaping Use Never Used 02/19/25 10:58 PHQ-9: PHQ-9 Score PHQ-9: Total score 4 02/19/25 11:11 Depression Screening Interpretation: Positive Depression Screening Follow-up: Existing condition and In treatment Thrive Assessment: Date of Thrive Assessment Date Thrive assessed 02/19/25 02/19/25 10:58 Currently or been in a relationship where the following occur: No concerns reported Const General: no acute distress and alert HENMT Ears: TM's normal bilaterally and EAC's normal Throat: Yes posterior oropharynx normal and Yes tonsils normal (no TP congestion) Neck Neck: Yes supple and No lymphadenopathy Thyroid: Thyroid normal Resp Auscultation: clear to auscultation bilaterally, no rales and no wheezes Cardio Rate: regular rate Rhythm: regular rhythm Heart sounds: no murmurs GI Palpation (GI): Soft to palpation and nontender Auscultation: normal bowel sounds General: Yes no CVA tenderness Back/Spine/Pelvis Back: no CVA tenderness Thoracic/Lumbar Spine: lumbar spinal tenderness Skin Rashes: no rashes Extrem General: Yes no clubbing, cyanosis or edema Right lower extremity: knee Details: tenderness; no swelling Left lower extremity: knee Details: tenderness; no swelling Office Procedures Flu Questionnaire Does the patient have a severe egg allergy?: No Does the patient have severe life threatening allergies?: No Does the patient have a fever or illness today?: No Has the patient ever had Guillain-Carthage Syndrome?: No Has the patient ever had any past reaction to a flu shot?: No Immunizations Fluarix [id number] (PF) 45 mcg (15 mcg x 3)/0.5 mL IM syringe Performing Provider: Sascha Arboleda MD Performing Location: [facility] [place] [facility] [place] Administered by: Vidhi Phoenix LPN on 02/19/25 11:23 Dose Route Admin Location Dispensed Lot Number Expiration Date [facility] Research [employer] 0.5 mL IM Left Deltoid 0.5 mL [id number] 09/02/25 [id number] [employer] VIS Given Date VIS Provided VIS Publication Date 02/19/25 Single Vaccine 24 Eligibility Eligibility Date Funding Source Not [facility] Eligible 02/19/25 Private Coding Level of Care Code Est Pt Level 4 (44860) Diagnoses Benign essential hypertension I10 Hypertensive retinopathy of right eye H35.031 Post-surgical hypothyroidism E89.0 Degeneration of intervertebral disc of lumbar region with discogenic back pain M51.360 Disc-related pain type: discogenic back pain only Bilateral primary osteoarthritis of knee M17.0 Primary osteoarthritis, right shoulder M19.011 GERD without esophagitis K21.9 Vitamin D deficiency E55.9 Iron deficiency anemia due to chronic blood loss D50.0 Anemia type: iron deficiency Iron deficiency anemia type: chronic blood loss Complex sclerosing lesion of right breast N64.89 Nocturnal hypoxemia G47.34 Seasonal allergic rhinitis due to pollen J30.1 Allergic rhinitis trigger: pollen Allergic rhinitis seasonality: seasonal Anxiety F41.9 Morbid obesity with BMI of 50.0-59.9, adult E66.01; Z68.43 Additional Codes PHQ-9 - 01619 - PHQ-9 Billing: Yes ([id number]) Assessment & Plan Assessment & Plan (1) Benign essential hypertension: Code(s): I10 - Essential (primary) hypertension Category: Medical Plan: Reinforced low-sodium diet -? goal is systolic BP of at least 120 to 130 mm Continue Lisinopril 20 mg QD Patient is reminded to continue monitoring her blood pressure regularly (2) Hypertensive retinopathy of right eye: Code(s): H35.031 - Hypertensive retinopathy, right eye Category: Medical Plan: Follow up with ophthalmology (Dr. 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 Blandon; had right hemithyroidectomy in 2012 Code(s): E89.0 - Postprocedural hypothyroidism Category: Medical Plan: Her TFTs were normal on her labs done previously; she had her follow up labs done earlier today but results are not available for review yet Continue Levoxyl 225 mcg QD at this time and advised patient that if her TFTs come back abnormal and her thyroid Rx dose needs to be adjusted, we will reach out to her Patient's hypothyroidism was being managed by Dr. Narayanan (endocrinology) previously but as she has been clinically euthyroid and stable for a while now, she was advised at her appointment with him last year that she can just follow up with her PCP and return to endocrinology only when needed (4) Lumbar degenerative disc disease: Code(s): M51.36 - Other intervertebral disc degeneration, lumbar region Category: Medical Qualifiers: Disc-related pain type: discogenic back pain only Qualified Code(s): M51.360 - Other intervertebral disc degeneration, lumbar region with discogenic back pain only Plan: Reinforced activity and weight-lifting restrictions to minimize aggravating her low back pain Continue Oxycodone-Acetaminophen 5-325 mg every 6 hours as needed and Cyclobenzaprine 10 mg TID PRN (5) Bilateral primary osteoarthritis of knee: Code(s): M17.0 - Bilateral primary osteoarthritis of knee Category: Medical Plan: Follow up with orthopedics as scheduled (6) Primary osteoarthritis, right shoulder: Code(s): M19.011 - Primary osteoarthritis, right shoulder Category: Medical Plan: X-rays of the right shoulder done in April 2023 revealed (+) arthritis at the acromioclavicular joint Follow up with orthopedics as scheduled (7) GERD without esophagitis: Code(s): K21.9 - Gastro-esophageal reflux disease without esophagitis Category: Medical Plan: Dietary restrictions reinforced Continue Omeprazole 20 mg QD PRN (8) Vitamin D deficiency: Code(s): E55.9 - Vitamin D deficiency, unspecified Category: Medical Plan: Continue Vitamin D3 1000 units QD (9) Anemia: Code(s): D64.9 - Anemia, unspecified Category: Medical Qualifiers: Anemia type: iron deficiency Iron deficiency anemia type: chronic blood loss Qualified Code(s): D50.0 - Iron deficiency anemia secondary to blood loss (chronic) Plan: Corrected - her H/H was normal at 15.0/47.3 when last checked in June 2024 Continue Ferrous Sulfate 325 mg QD Will continue to monitor patient's CBC regularly (10) Complex sclerosing lesion of right breast: Code(s): N64.89 - Other specified disorders of breast Category: Medical Plan: S/P lumpectomy on 10/14/2024 - pathology of the excised lesion came out as residual radial sclerosing lesion, moderate usual ductal hyperplasia, adenosis, epidermal inclusion cyst and previous biopsy site changes; negative for malignancy Follow-up with breast surgery as scheduled (11) Nocturnal hypoxemia: Code(s): G47.34 - Idiopathic sleep related nonobstructive alveolar hypoventilation Category: Medical Plan: Patient's home sleep study done on 08/21/2024 was negative for sleep apnea but it did show that she has nocturnal hypoxemia with O2 micheline of 81% and oxygen saturation below 88% for 29 minutes She was advised that this is likely due to obesity and sleep related hypoventilation and recommended aggressive weight reduction as well as evaluation for any underlying chronic lung or cardiac disease accounting for nocturnal hypoxemia We will consider sending her for chest x-rays and PFTs as well as echocardiogram for further evaluation later on - she asked to hold off on these until after the holidays so we will just look into these again at her next follow up appointment (12) Allergic rhinitis: Code(s): J30.9 - Allergic rhinitis, unspecified Category: Medical Qualifiers: Allergic rhinitis trigger: pollen Allergic rhinitis seasonality: seasonal Qualified Code(s): J30.1 - Allergic rhinitis due to pollen Plan: Continue Loratadine 10 mg QD PRN (13) Anxiety: Code(s): F41.9 - Anxiety disorder, unspecified Category: Medical Plan: Continue Diazepam 10 mg 1/2 to 1 tablet BID PRN (14) Morbid obesity with BMI of 50.0-59.9, adult: Code(s): E66.01 - Morbid (severe) obesity due to excess calories; Z68.43 - Body mass index [BMI] 50.0-59.9, adult Category: Medical Plan: Reinforced diet/exercise as tolerated/lose weight Per request, we tried starting patient on Zepbound 2.5 mg SQ once a week to help patient lose weight at her last visit but this was denied by insurance She has since been referred to weight management and she was scheduled to be seen for her initial visit in December 2024 Plan Per request, flu vaccine given to patient today Follow up in 4 months Orders: Orders Influenza [id number] Immunization Today Z23 - Encounter for immunization
== END 2025-02-19 11:22 | disposition home or self-care (01) ==
LOC: HO.HMCH 10:41
PROVIDERS: PCP Internal Medicine; Visit Provider Internal Medicine
DX: I10 Essential (primary) hypertension (principal); H35.031 Hypertensive retinopathy, right eye; E66.01 Morbid (severe) obesity due to excess calories; Z68.43 Body mass index [BMI] 50.0-59.9, adult; E89.0 Postprocedural hypothyroidism; M51.360 Other intervertebral disc degeneration, lumbar region with discogenic back pain only; M17.0 Bilateral primary osteoarthritis of knee; M19.011 Primary osteoarthritis, right shoulder; K21.9 Gastro-esophageal reflux disease without esophagitis; E55.9 Vitamin D deficiency, unspecified; D50.0 Iron deficiency anemia secondary to blood loss (chronic); N64.89 Other specified disorders of breast; G47.34 Idiopathic sleep related nonobstructive alveolar hypoventilation; J30.1 Allergic rhinitis due to pollen; F41.9 Anxiety disorder, unspecified; Z23 Encounter for immunization